=== PATIENT | male | born 1930 | race Caucasian/White ===

== ENCOUNTER 2017-07-11 10:39 | Inpatient (IN) | payer MEDICARE ==
[~2017-07-11] VITALS: Ht 172.7 cm; Wt 78.9 kg
[2017-07-11 10:40] VITALS: BP 130/72
[2017-07-11] MEDS ORDERED: LIPITOR80 MG PO (10:45)
[2017-07-11] MEDS ORDERED: SYNTHROID75 MCG PO (10:46)
[2017-07-11] MEDS ORDERED: GLUCOTROL5 MG PO (10:46)
[2017-07-11] MEDS ORDERED: COZAAR 50 MG TA50 M2 PO (10:46)
[2017-07-11] MEDS ORDERED: METFORMIN HCL500 MG PO (10:47)
[2017-07-11] MEDS ORDERED: COUMADIN 5 MG TA5 M1 PO (10:47)
[2017-07-11] MEDS ORDERED: TOPROL XL100 MG PO (10:47)
[2017-07-11] MEDS ORDERED: RESTORIL30 MG PO (10:47)
[2017-07-11 11:18] LABS: ABSOLUTE BASOPHILS 0.1 thou/uL (0.0-0.2); ABSOLUTE EOSINOPHILS 0.2 thou/uL (0.0-0.7); ABSOLUTE LYMPHOCYTES 1.7 thou/uL (0.8-5.3); ABSOLUTE MONOCYTES 1.2 thou/uL (0.0-1.2); ABSOLUTE NEUTROPHILS 9.3 thou/uL (1.6-8.1); BASOPHILS 0.5 %; EOSINOPHILS 1.6 %; HEMATOCRIT 41.3 % (42.0-52.0); HEMOGLOBIN 13.9 gm/dL (14.0-18.0); LYMPHOCYTES 13.7 %; MCH 30.8 pg (26.0-34.0); MCHC 33.7 g/dL (28.0-37.0); MCV 91.5 fL (80.0-100.0); MONOCYTES 9.6 %; MPV 11.9 fl. (7.2-11.1); NUCLEATED RBCS 0 /100WBC; PLATELET COUNT* 149 thou/uL (150-400); POLYS 74.6 %; RBC 4.52 mil/uL (4.50-6.00); RDW-CV 12.9 % (10.5-14.5); WBC 12.5 thou/uL (4.0-11.0)
[2017-07-11 11:24] LABS: CALCIUM 8.9 mg/dL (8.5-10.1); CREATININE 1.1 mg/dL (0.6-1.3); INR 3.8; POTASSIUM 4.7 mmol/L (3.5-5.1)
[2017-07-11 11:29] LABS: ALBUMIN 3.6 g/dL (3.4-5.0); TOTAL BILIRUBIN 0.7 mg/dL (<0.1-1.0); TOTAL PROTEIN 6.8 g/dL (6.4-8.2)
[2017-07-11 16:06] VITALS: BP 103/61
[2017-07-11 16:40] VITALS: BP 96/56
[2017-07-11 17:12] LABS: URINE BILIRUBIN NEGATIVE (Negative); URINE BLOOD NEGATIVE (Negative); URINE CLARITY CLOUDY; URINE COLOR YELLOW; URINE GLUCOSE-RANDOM 1+ (Negative); URINE KETONES TRACE (Negative); URINE LEUKOCYTES-REFLEX NEGATIVE (Negative); URINE NITRITE-REFLEX NEGATIVE (Negative); URINE PROTEIN NEGATIVE (Negative); URINE SPECIFIC GRAVITY >= 1.030 (1.005-1.030); URINE UROBILINOGEN 0.2 E.U./dl (0.2-1.0)
[2017-07-11 17:29] LABS: BACTERIA-REFLEX >30 Many /HPF (None Seen); CASTS None Seen /LPF (None Seen); MUCUS None Seen strn/LPF (None Seen); SQUAMOUS 0-3 Few /LPF (0-3); URINE RBC None Seen /HPF (0-2); URINE WBC-REFLEX None Seen /HPF (0-5)
[2017-07-11 17:30] LABS: AMORPHOUS URATES Many /LPF (None Seen)
[2017-07-11 17:34] LABS: BE -1.3 mmol/L (-2 to +3); HCO3 22.3 mmol/L (22.0-26.0); PCO2 34.4 mmHg (35.0-45.0); PO2 73.5 mmHg (75.0-100.0)
--- NOTE | 2017-07-11 17:51 | NUR ---
PT ADMITTED TO UNIT AROUND 1700 PT IS ALERT AND ORIENTED X 4 PT DENIES PAIN OR SOA ON RA, PT IS UP WITH SBA PT IS A FALL RISK BED ALARM IS ON, PT BLOOD PRESSURE LOW PHYSICIAN AWARE, PT IS SR ON MONITOR, PT IS PLESANT AND COOPERATIVE, PT HAS ACCUCHECKS, PT DAUGHTER AT BEDSIDE, WILL CONTINUE TO MONITOR
[2017-07-11 21:00] VITALS: BP 106/71
[2017-07-12] VITALS: BP 112/65
--- NOTE | 2017-07-12 03:19 | NUR ---
PT A/OX4, RA, AFIB ON THE MONITOR, PT STATED HE'S HAD AFIB FOR 18-20 YEARS, VSS, MEDS/ASSESSMENT PER KAYLA, UP SBA, HOURLY ROUNDING/FALL PRECAUTIONS IN PLACE, NO C/O PAIN/SOA, WILL CONT TO MONITOR.
[2017-07-12 04:00] VITALS: BP 107/63
[2017-07-12 08:04] VITALS: BP 98/55
--- NOTE | 2017-07-12 09:46 | NUR ---
ASSUMED CARE OF PT THIS AM AROUND 0715- MINER ASSISTANT IN PLACE ORDERED, TRACING A-FIB WITH BBB- UPON ASSESSMENT PT NOTED TO BE RESING IN BED- PT A&O X4- CONTINENT OF BOWEL AND BLADDER- SBA WITH TRANSFERS FOR SAFETY- LCTA, RESP EVEN AND UN-LABORED- BP NOTED TO BE 98/55 THIS AM, SCHEDULED METOPROLOL HELD THIS AM- ABDOMEN SOFT/ROUND/NON-TENDER, BS X4 QUADS- LAST BM REPORTED 07/11/17-TRACE EDEMA NOTED TO BLE- GOOD PO INTAKE NOTED THIS AM WITH BREAKFAST- BS MONITORED THIS AM, CONTROLLED PER PO MEDICATIONS- BS THIS AM NOTED TO BE 320, NOTIFIED- A1C ORDERED- IV NOTED TO LEFT AC INTACT, IV ABT GIVEN PRESCIBED THIS AM, NO ADVERSE REACTIONS TO NOTE-PT DENIES ANY C/O PAIN/DISCOMFORT AT THIS TIME- CALL LIGHT AND PERSONAL BELONGINGS WITH IN REACH- HOURLY ROUNDS IN PLACE R/T SAFETY/NEEDS- ALL NEEDS MET AT THIS TIME-WCTM
[2017-07-12 10:50] VITALS: BP 98/55
[2017-07-12 11:34] VITALS: BP 100/56; BP 90/57; BP 98/63
[2017-07-12 11:36] VITALS: BP 111/63
--- NOTE | 2017-07-12 12:07 | NUR ---
MET WITH PT, CELYR/INEZ AND SHRAVAN/KALIN. PT LIVES AT HOME WITH HIS /LUKE. HE IS INDEPENDENT AND ACTIVE. HAS A CANE BUT DOESN'T USE IT. PT DRIVES. HE STATES HE FEEL OFF CURB YESTERDAY AND FEELS MUCH IMPROVED TODAY, HOPES TO GO HOME. PT HASN'T HAD HH OR BEEN TO SNF. NO DPOA, GAVE ED AND INFO. NO DC NEEDS ID'D WILL FOLLOW
[2017-07-12] MEDS ORDERED: GLUCOTROL5 MG PO (14:03)
[2017-07-12] MEDS ORDERED: CEFPODOXIME PR100 MG PO (14:03)
--- NOTE | 2017-07-12 14:34 | NUR ---
ORDERS RECIVED PER FOR OKAY FOR D/C TO HOME THIS SHIFT- IV TO LEFT AC D/C'D ALONG WITH SURGICAL TECH PRIOR TO D/C- D/C TEACHING/EDUCATION GIVEN TO PT AND AT TIME OF D/C- ALL QUESTIONS AND CONCERNS ADDRESSED AT THAT TIME- WRITEN SCRIPTS FOR ABT AND INCREASED DOSE OF GLIPIZIDE PROVIDED, ALONG WITH EDUCATION GIVEN TO PT AT TIME OF D/C- PT INSTRUCTED TO RESTART COUMADIN 07/13/17, WITH BLOOD DRAWS SCHEDULED, BERBAL UNDERSTANDING RECIVED PER PT AND - BELONGINGS PACKED AND ACCOUNTED FOR PER PT AND - FLUTTER VALVE PROVIDED TO PT PER RT PRIOR TO D/C PER REQUEST- PT ESCORTED TO VEHICLE, AT SIDE PER TECH VIA W/C AT 1447 -NO PROBLEMS TO NOTE AT TIME OF D/C
[2017-07-12 18:07] LABS: GLYCOHEMOGLOBIN (HGB A1C) 7.2 % (4.8-5.6)
== END 2017-07-12 14:47 | disposition home or self-care (01) | DRG 871 ==
LOC: M.ERS 10:39 → M.TBA-ER 12:17 → M.2W 12:17
PROVIDERS: Nurse Practitioner Family; ADMIT Internal Medicine
DX: A41.9 Sepsis, unspecified organism (principal); J15.9 Unspecified bacterial pneumonia; E11.9 Type 2 diabetes mellitus without complications; I48.91 Unspecified atrial fibrillation; I10 Essential (primary) hypertension; W18.39XA Other fall on same level, initial encounter; Z95.1 Presence of aortocoronary bypass graft; Z79.899 Other long term (current) drug therapy; Y93.89 Activity, other specified; Y92.89 Other specified places as the place of occurrence of the external cause; Y99.8 Other external cause status

== ENCOUNTER 2017-10-22 07:07 | Inpatient (IN) | payer MEDICARE ==
[~2017-10-22] VITALS: Ht 172.7 cm; Wt 75.7 kg
[2017-10-22] VITALS (12 sets, daily range): BP systolic 89–130; BP diastolic 55–96
[~2017-10-22 07:07] MED LIST: CEFPODOXIME PR100 MG PO; COUMADIN 5 MG TA5 M1 PO; COZAAR 50 MG TA50 M2 PO; GLUCOTROL5 MG PO; LIPITOR80 MG PO; METFORMIN HCL500 MG PO; RESTORIL30 MG PO; SYNTHROID75 MCG PO; TOPROL XL100 MG PO
[2017-10-22 07:28] LABS: ABSOLUTE EOSINOPHILS 0.1 thou/uL (0.0-0.7); ABSOLUTE LYMPHOCYTES 1.6 thou/uL (0.8-5.3); ABSOLUTE MONOCYTES 0.6 thou/uL (0.0-1.2); ABSOLUTE NEUTROPHILS 5.7 thou/uL (1.6-8.1); BASOPHILS 0.6 %; EOSINOPHILS 0.7 %; HEMATOCRIT 38.9 % (42.0-52.0); HEMOGLOBIN 12.8 gm/dL (14.0-18.0); LYMPHOCYTES 19.9 %; MCH 29.3 pg (26.0-34.0); MCHC 32.8 g/dL (28.0-37.0); MCV 89.2 fL (80.0-100.0); MONOCYTES 8.1 %; MPV 11.4 fl. (7.2-11.1); NUCLEATED RBCS 0 /100WBC; PLATELET COUNT* 134 thou/uL (150-400); POLYS 70.7 %; RBC 4.36 mil/uL (4.50-6.00); RDW-CV 14.2 % (10.5-14.5)
[2017-10-22 07:38] LABS: ANION GAP 7 mmol/L (7-16); BUN 21 mg/dL (7-18); CHLORIDE 105 mmol/L (98-107); CO2 26 mmol/L (21-32); CREATININE 0.8 mg/dL (0.6-1.3); GLUCOSE 178 mg/dL (70-99); POTASSIUM 4.5 mmol/L (3.5-5.1); SODIUM 138 mmol/L (136-145)
[2017-10-22 07:39] LABS: APTT 37.7 Seconds (25.0-31.3); INR 2.6; PROTIME 25.1 Seconds (9.20-11.50)
[2017-10-22 07:49] LABS: ALBUMIN 2.9 g/dL (3.4-5.0); ALKALINE PHOSPHATASE 91 U/L (46-116); LIPASE 112 U/L (73-393); MAGNESIUM 1.9 mg/dL (1.8-2.4); NT-PRO BRAIN NAT PEPTIDE 2678 pg/mL (<300); SGOT 25 U/L (15-37); SGPT 30 U/L (30-65); TOTAL BILIRUBIN 0.9 mg/dL (<0.1-1.0); TOTAL PROTEIN 6.2 g/dL (6.4-8.2); TROPONIN-I LEVEL <0.06 ng/mL (<0.06)
[2017-10-22] MEDS ORDERED: AFRIN30 ML NASAL (08:36)
--- NOTE | 2017-10-22 11:29 | EKG ---
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: : 1930 Requested By: Vamsi Valadez Order Number: [id number] MD: Sushant Parikh Measurements Intervals [place] Rate: 157 P: 126 WV: 132 QRS: -46 QRSD: 133 T: 139 QT: 281 QTc: 455 Interpretive Statements atrial fibrillation premature complex supraven Nonspecific IVCD with LAD Compared to ECG 09/12/2006 11:21:40 a fib now noted Electronically Signed On 10-22-2017 11:29:02 CDT by Sushant Parikh [email or web address] <ELECTRONICALLY SIGNED> By: Sushant Parikh MD, [facility] 10/22/17 1129 0713 2 Sushant Parikh MD, [facility] /EPI
--- NOTE | 2017-10-22 16:39 | CON ---
[address] [address] CONSULTATION Name: ANGELICA HOANG Room: [address] IN M.R.#: [id number] Admission: 10/22/17 Attend Phys: Daljit Edge Discharge: Date of : 31 Report #: [id number] THIS REPORT FOR: //name// CC: CECIL Pelayo DATE OF SERVICE: 10/22/2017 PRIMARY CARE PHYSICIAN: Dr. Cecil Burton, [place], [place]. HISTORY OF PRESENT ILLNESS: The patient is an 87-year-old white male who I was asked to see in the hospital today after he was noted to be in rapid atrial fibrillation. The history is obtained from the patient's old records as well as 2 daughters who are present. The patient had triple vessel bypass surgery at [facility] many years ago. He has a history of permanent atrial fibrillation. Recently, he has been followed by Dr. Mcgraw. His last nuclear stress test in 2013 here at [facility] showed that he was in atrial fibrillation. Myocardial perfusion images showed attenuation of the apex. There was an anterior and inferior defect. No reversible defects were noted. Ejection fraction was only 32%. His last echocardiogram in 2013 showed an ejection fraction of only 30% with moderate mitral regurgitation. He had a carotid Doppler study in 2015 that showed no significant stenosis. The patient was actually admitted here to [facility] last June after he fell and had pneumonia. He does walk on a treadmill at home. He does have problems with balance and uses a cane. He does have problems with memory. The patient recently has been doing well, although he has not been sleeping well. He has been weak. This morning, his could not get him out of bed. An ambulance was called. He was brought here to [facility] by ambulance. He is noted to be in atrial fibrillation, increased ventricular response rate, and the patient was started on IV diltiazem. He denies any recent chest pain. He has been short of breath. He has had no edema. He has had a cough. He notes his heart beating irregular, but has had no lightheadedness or syncope. PAST MEDICAL HISTORY: Otherwise, significant for no other major surgical procedures. He has a history of diabetes, hypertension, hyperlipidemia. MEDICATIONS: Consist of Lipitor, glyburide, Synthroid, losartan, metformin, metoprolol, Restoril, warfarin. He has a home INR monitor. He also checks his blood sugars at home. ALLERGIES: He has no known drug allergies. FAMILY HISTORY: Heart disease runs in the family. SOCIAL HISTORY: He is . He and his live in [place], 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 No smoking or alcohol abuse. REVIEW OF SYSTEMS: He has had no history of stroke, asthma, peptic ulcer disease, GI bleeding, liver disease, kidney disease, cancer, psychiatric illness. PHYSICAL EXAMINATION: GENERAL: Elderly, frail-appearing male who appeared in no acute distress. VITAL SIGNS: He had a blood pressure of only 100 systolic, pulse is 140 and irregular. He is afebrile. HEENT: He is anicteric. Conjunctivae pale. Mucous members appear dry. NECK: Veins not distended. CHEST: Clear to auscultation. CARDIOVASCULAR: Irregular tachycardia. ABDOMEN: Soft. EXTREMITIES: Had no edema. Dorsalis pedis pulse cannot be palpated. SKIN: Cool and dry. LABORATORY DATA: On the monitor, he appeared to be in atrial fibrillation with rapid ventricular response rate. He had x-rays performed since admission included a chest x-ray that showed cardiomegaly, mild interstitial edema. Previous CT scan of the head done in June showed mild atrophy, chronic microvascular changes, but no hemorrhage. Carotid Doppler study in 2016 here at [facility] showed no significant stenosis. His lab work since he arrived, sodium 138, BUN 21, creatinine 0.8. Liver functions are actually normal. Troponin 0.06. BNP 2678. Thyroid function studies are pending. INR is 2.6. White blood cell count 8.0, hemoglobin 12.8. IMPRESSION AND RECOMMENDATIONS: 1. Fatigue. Thyroid function studies pending. The patient is not anemic. Reason unclear. 2. Insomnia. 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 3. Coronary artery disease. Previous bypass surgery. No recent angina. 4. Cardiomyopathy. The patient has been on a beta familia and ARB. 5. Permanent atrial fibrillation. Rate not controlled at this time on beta familia. I would add diltiazem and digoxin if necessary. The patient has been chronically anticoagulated. If he continues to fall, I will consider the patient a high risk for bleeding. The patient apparently was cardioverted at [facility] in the past. 6. Memory loss. 7. Diabetes. 8. Hyperlipidemia. The patient is on a statin drug. <ELECTRONICALLY SIGNED> By: Sushant Parikh MD, [facility] 10/22/17 1639 0932 1239David Aminah Parikh MD, [facility] /nt
[2017-10-23] VITALS (13 sets, daily range): BP systolic 106–123; BP diastolic 63–72
[2017-10-23 04:35] LABS: INR 2.9; PROTIME 28.1 Seconds (9.20-11.50)
[2017-10-23 04:44] LABS: CALCIUM 8.8 mg/dL (8.5-10.1); CREATININE 0.7 mg/dL (0.6-1.3)
--- NOTE | 2017-10-23 15:34 | 2DMMODE ---
[place] [address] 2 D/M-MODE ECHOCARDIOGRAM Name: ANGELICA HOANG Room: [facility] IN [facility]#: [id number] Admission: 10/22/17 Attend Phys: Rush Pelayo Discharge: Date of : 31 Date of Service: 10/23/17 1534 Report #: [id number] THIS REPORT FOR: //name// APPROVED REPORT Study performed: 10/23/2017 14:11:52 EXAM: Comprehensive 2D, Doppler, and color-flow Echocardiogram Patient Location: In-Patient Room #: 006 Status: routine BSA: 1.89 HR: 52 bpm BP: 118/71 mmHg Rhythm: Atrial Fibrillation Other Information Study Quality: Good Indications Atrial Fibrillation 2D Dimensions LVEF(%): 41.54 (>50%) IVSd: 10.89 (7-11mm) LVOT Diam: 19.86 (18-24mm) LVDd: 55.50 mm PWd: 8.62 (7-11mm) Ascending Ao: 39.05 (22-36mm) LVDs: 44.07 (25-40mm) Aortic Root: 32.71 mm Sierra's LVEF: 41.54 % Volumes Left Atrial Volume (Systole) LA ESV Index: 50.80 mL/m2 Aortic Valve AoV Peak Jorge.: 1.34 m/s AO Peak Gr.: 7.20 mmHg LVOT Max P.98 mmHg AO Mean Gr.: 4.03 mmHg LVOT Mean P.44 mmHg LVOT Max V: 0.50 m/s AO V2 VTI: 22.59 cm LVOT Mean V: 0.31 m/s JAMEY (VTI): 1.04 cm2 LVOT V1 VTI: 7.59 cm Mitral Valve MV Decel. Time: 115.14 [place] [address] 2 D/M-MODE ECHOCARDIOGRAM Name: ANGELICA HOANG Room: [address] IN [facility].#: [id number] Admission: 10/22/17 Attend Phys: Rush Pelayo Discharge: Date of : 31 Date of Service: 10/23/17 1534 Report #: [id number] MV PHT: 33.39 ms MVA (PHT): 6.59 cm2 TDI Medial E' Jorge.: 0.10 m/s Lateral E' Jorge.: 0.11 m/s Pulmonary Valve PV Peak Jorge.: 0.92 m/s PV Peak Gr.: 3.36 mmHg Tricuspid Valve TR Peak Gr.: 40.29 mmHg RVSP: 45.00 mmHg Left Ventricle Left ventricle is mildly dilated. There is global hypokinesis of the left ventricle. There is normal left ventricular wall thickness. Left ventricular systolic function is moderately decreased. LVEF is 35-40%. This study is not technically sufficient to allow evaluation of the LV diastolic function due to atrial fibrillation. Right Ventricle The right ventricle is normal size. The right ventricular systolic function is normal. Atria Left atrium is severely dilated. Right atrium is moderately dilated. Aortic Valve The Aortic valve is sclerotic. No aortic regurgitation is present. No aortic stenosis. Mitral Valve The mitral valve is normal in structure. Mild mitral regurgitation. No evidence of mitral valve stenosis. Tricuspid Valve The tricuspid valve is normal in structure. Moderate tricuspid regurgitation. The RVSP is 45-50 mmHg. Pulmonic Valve The pulmonary valve is normal in structure. There is no pulmonic valvular regurgitation. Great Vessels The aortic root is normal in size. IVC [place] [address] 2 D/M-MODE ECHOCARDIOGRAM Name: ANGELICA HOANG Room: [address]#: [id number] Admission: 10/22/17 Attend Phys: Rush Pelayo Discharge: Date of : 31 Date of Service: 10/23/17 1534 Report #: [id number] collapses with >50% inspiration Pericardium There is no pericardial effusion. <Conclusion> Left ventricle is mildly dilated. There is normal left ventricular wall thickness. Left ventricular systolic function is moderately decreased. LVEF is 35-40%. This study is not technically sufficient to allow evaluation of the LV diastolic function due to atrial fibrillation. There is global hypokinesis of the left ventricle. Left atrium is severely dilated. Right atrium is moderately dilated. No aortic stenosis. Mild mitral regurgitation. Moderate tricuspid regurgitation. The RVSP is 45-50 mmHg. <ELECTRONICALLY SIGNED> By: Steven Mcgraw MD, FACC 10/23/17 1534 1534 1534 Steven Mcgraw MD, FACC /INF
--- NOTE | 2017-10-23 15:36 | EKG ---
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1930 Requested By: Sushant Parikh Order Number: [id number] Juan C MD: Steven Mcgraw Measurements Intervals [place] Rate: 48 P: [place]: QRS: -48 QRSD: 138 T: 200 QT: 451 QTc: 403 Interpretive Statements Atrial fibrillation Left bundle branch block Compared to ECG 10/22/2017 07:13:13 Left bundle-branch block now present Intraventricular conduction delay no longer present Electronically Signed On 10-23-2017 15:36:17 CDT by Steven Mcgraw [email or web address] <ELECTRONICALLY SIGNED> By: Steven Mcgraw MD, [facility] 10/23/17 1536 1236 1236 Steven Mcgraw MD, [facility] /EPI
[2017-10-24] VITALS (8 sets, daily range): BP systolic 102–171; BP diastolic 60–81
[2017-10-24 05:16] LABS: INR 2.7
[2017-10-25] VITALS: BP 102/60
[2017-10-25 04:15] VITALS: BP 114/79
[2017-10-25 04:30] LABS: INR 1.8; PROTIME 17.4 Seconds (9.20-11.50)
[2017-10-25 07:30] VITALS: BP 114/70
[2017-10-25] MEDS ORDERED: CARDIZEM CD120 MG PO (11:38)
== END 2017-10-25 12:20 | disposition home or self-care (01) | DRG 308 ==
LOC: M.ERS 07:07 → M.ICU 08:25 → M.TBA-ER 08:25 → M.ICU 11:53 → M.3W 10-24 13:57
PROVIDERS: Emergency Medicine Emergency Medical Services; Internal Medicine Cardiovascular Disease; ADMIT Internal Medicine
DX: I48.91 Unspecified atrial fibrillation (principal); I50.43 Acute on chronic combined systolic (congestive) and diastolic (congestive) heart failure; E44.0 Moderate protein-calorie malnutrition; I11.0 Hypertensive heart disease with heart failure; I42.9 Cardiomyopathy, unspecified; R53.83 Other fatigue; E11.9 Type 2 diabetes mellitus without complications; G47.00 Insomnia, unspecified; R41.3 Other amnesia; E78.5 Hyperlipidemia, unspecified; E03.9 Hypothyroidism, unspecified; I25.10 Atherosclerotic heart disease of native coronary artery without angina pectoris; F03.90 Unspecified dementia, unspecified severity, without behavioral disturbance, psychotic disturbance, mood disturbance, and anxiety; Z68.25 Body mass index [BMI] 25.0-25.9, adult; Z79.01 Long term (current) use of anticoagulants; Z82.49 Family history of ischemic heart disease and other diseases of the circulatory system

== ENCOUNTER 2018-02-04 01:02 | Inpatient (IN) | payer MEDICARE ==
[2018-02-04] VITALS (22 sets, daily range): BP systolic 64–124; BP diastolic 35–93
[~2018-02-04] VITALS: Ht 172.7 cm; Wt 78.9 kg
--- NOTE | ~2018-02-04 | EKG ---
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: : 1930 Requested By: Sushant Parikh Order Number: [id number] Reading MD: Measurements Intervals [place] Rate: 127 P: [place]: QRS: -43 QRSD: 134 T: 134 QT: 302 QTc: 440 Interpretive Statements Atrial fibrillation Nonspecific IVCD with LAD Abnormal T, consider ischemia, lateral leads ST elevation, consider inferior injury Compared to ECG 02/04/2018 14:14:41 T-wave abnormality now present ST (T wave) deviation now present Myocardial infarct finding now present Possible ischemia still present [email or web address] By: 820 0 Epiphany Epiphany, [place] /EPI
[~2018-02-04 01:02] MED LIST changes: +AFRIN30 ML NASAL; +CARDIZEM CD120 MG PO
[2018-02-04 01:24] LABS: ABSOLUTE BASOPHILS 0.1 thou/uL (0.0-0.2); ABSOLUTE EOSINOPHILS 0.1 thou/uL (0.0-0.7); ABSOLUTE LYMPHOCYTES 2.7 thou/uL (0.8-5.3); ABSOLUTE MONOCYTES 0.8 thou/uL (0.0-1.2); ABSOLUTE NEUTROPHILS 7.3 thou/uL (1.6-8.1); BASOPHILS 0.7 %; EOSINOPHILS 0.6 %; HEMATOCRIT 36.9 % (42.0-52.0); HEMOGLOBIN 12.1 gm/dL (14.0-18.0); LYMPHOCYTES 24.5 %; MCH 28.8 pg (26.0-34.0); MCHC 32.7 g/dL (28.0-37.0); MONOCYTES 7.5 %; NUCLEATED RBCS 0 /100WBC; PLATELET COUNT* 199 thou/uL (150-400); POLYS 66.7 %; RDW-CV 15.9 % (10.5-14.5)
[2018-02-04 01:35] LABS: ANION GAP 7 mmol/L (7-16); BUN 25 mg/dL (7-18); CALCIUM 8.3 mg/dL (8.5-10.1); CHLORIDE 104 mmol/L (98-107); CO2 26 mmol/L (21-32); CREATININE 0.9 mg/dL (0.6-1.3); GLUCOSE 234 mg/dL (70-99); POTASSIUM 4.5 mmol/L (3.5-5.1); SODIUM 137 mmol/L (136-145)
[2018-02-04 01:44] LABS: INR 1.6
[2018-02-04 01:45] LABS: ALKALINE PHOSPHATASE 114 U/L (46-116); NT-PRO BRAIN NAT PEPTIDE 4273 pg/mL (<300); SGOT 49 U/L (15-37); SGPT 52 U/L (30-65); TOTAL BILIRUBIN 0.3 mg/dL (<0.1-1.0); TOTAL PROTEIN 6.6 g/dL (6.4-8.2); TROPONIN-I LEVEL <0.06 ng/mL (<0.06)
[2018-02-04] MEDS ORDERED: METFORMIN HCL500 MG PO (02:33)
--- NOTE | 2018-02-04 10:57 | EKG ---
[place] [address] ELECTROCARDIOGRAM REPORT Name: ANGELICA HOANG Room: [address] ADM IN ..#: [id number] Admission: 02/04/18 Attend Phys: Charlie Gonsalez MD Discharge: Date of : 31 Report #: [id number] THIS REPORT FOR: //name// 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: AP : 1930 Requested By: Ilene Beltran Order Number: [id number] : Sushant Parikh Measurements Intervals [place] Rate: 138 P: [place]: QRS: -47 QRSD: 138 T: 143 QT: 323 QTc: 490 Interpretive Statements Atrial fibrillation Left bundle branch block Compared to ECG 10/23/2017 12:36:34 rate increased Electronically Signed On 02-04-2018 10:57:36 CDT by Sushant Parikh [email or web address] <ELECTRONICALLY SIGNED> By: Sushant Parikh MD, [facility] 02/04/18 1057 0116 0116 Sushant Parikh MD, [facility] /EPI
--- NOTE | 2018-02-04 14:38 | EKG ---
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1930 Requested By: Sushant Parikh Order Number: [id number] Reading MD: Sushant Parikh Measurements Intervals [place] Rate: 36 P: [place]: QRS: -43 QRSD: 137 T: 201 QT: 499 QTc: 386 Interpretive Statements Atrial fibrillation Nonspecific IVCD with LAD LVH w/ repol abnormalities, possible ischemia Compared to ECG 02/04/2018 01:16:42 Possible ischemia now present rate slowed Electronically Signed On 02-04-2018 14:38:43 CDT by Sushant Parikh [email or web address] <ELECTRONICALLY SIGNED> By: Sushant Parikh MD, [facility] 02/04/18 1438 1215 1215 Sushant Parikh MD, [facility] /EPI
--- NOTE | 2018-02-04 14:40 | EKG ---
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
[2018-02-05] VITALS (14 sets, daily range): BP systolic 88–150; BP diastolic 35–124
[2018-02-05 04:10] LABS: HEMATOCRIT 30.5 % (42.0-52.0); HEMOGLOBIN 10.2 gm/dL (14.0-18.0); MCH 29.1 pg (26.0-34.0); MCHC 33.3 g/dL (28.0-37.0); MCV 87.2 fL (80.0-100.0); MPV 10.9 fl. (7.2-11.1); RBC 3.5 mil/uL (4.50-6.00); RDW-CV 15.9 % (10.5-14.5); WBC 13.4 thou/uL (4.0-11.0)
[2018-02-05 04:19] LABS: INR 1.8; PROTIME 18.1 Seconds (9.20-11.50)
[2018-02-05 04:40] LABS: CALCIUM 8.5 mg/dL (8.5-10.1); CREATININE 0.8 mg/dL (0.6-1.3); MAGNESIUM 1.8 mg/dL (1.8-2.4); POTASSIUM 4.4 mmol/L (3.5-5.1); TROPONIN-I LEVEL 0.49 ng/mL (<0.06)
[2018-02-05 20:21] LABS: URINE BILIRUBIN NEGATIVE (Negative); URINE BLOOD TRACE (Negative); URINE CLARITY CLEAR; URINE COLOR YELLOW; URINE GLUCOSE-RANDOM NEGATIVE (Negative); URINE KETONES NEGATIVE (Negative); URINE LEUKOCYTES 1+ (Negative); URINE NITRITE NEGATIVE (Negative); URINE PROTEIN NEGATIVE (Negative); URINE UROBILINOGEN 0.2 E.U./dl (0.2-1.0)
[2018-02-05 21:00] LABS: CASTS None Seen /LPF (None Seen); SQUAMOUS 0-3 Few /LPF (0-3)
[2018-02-05 21:01] LABS: BACTERIA 1-9 Few /HPF (None Seen); CRYSTALS None Seen /LPF (None Seen); URINE RBC 0-2 Rare /HPF (0-2); URINE WBC 6-15 Few /HPF (0-5)
[2018-02-06] VITALS (20 sets, daily range): BP systolic 91–154; BP diastolic 48–116
[2018-02-06 03:48] LABS: HEMATOCRIT 32.5 % (42.0-52.0); HEMOGLOBIN 10.7 gm/dL (14.0-18.0); MCH 28.9 pg (26.0-34.0); MCHC 32.8 g/dL (28.0-37.0); MCV 87.9 fL (80.0-100.0); MPV 11.3 fl. (7.2-11.1); RBC 3.7 mil/uL (4.50-6.00)
[2018-02-06 03:52] LABS: INR 1.9; PROTIME 19.7 Seconds (9.20-11.50)
[2018-02-06 03:59] LABS: CALCIUM 9.3 mg/dL (8.5-10.1); CREATININE 0.8 mg/dL (0.6-1.3); MAGNESIUM 2.2 mg/dL (1.8-2.4); POTASSIUM 4.4 mmol/L (3.5-5.1)
--- NOTE | 2018-02-06 10:11 | CON ---
[facility] [address] [place] [address] CONSULTATION Name: ANGELICA HOANG Room: [address] IN M.R.#: [id number] Admission: 02/04/18 Attend Phys: Charlie Gonsalez MD Discharge: Date of : 31 Report #: [id number] THIS REPORT FOR: //name// CC: Charlie Burton MD DATE OF SERVICE: 02/04/2018 HISTORY OF PRESENT ILLNESS: The patient is an 87-year-old white male who I was asked to see in the hospital after he was noted to be in atrial fibrillation. The patient apparently had triple vessel bypass surgery at [facility] many years ago. He has a history of AFib and has been cardioverted twice in the past. Recently, he has been followed by my partner, Dr. Mcgraw. He has been chronically anticoagulated and does have his INR checked frequently. His last nuclear stress test in 2013 here at [place] showed no reversible defects with ejection fraction only 32%. His last echocardiogram at that time showed an ejection fraction of only 30%. He does have problems with balance and uses a cane. However, he does exercise on a treadmill that he has at home. The patient was actually admitted to [facility] in October with weakness. The patient's rate of atrial fibrillation was noted to be increased. The patient was kept in the hospital a few days and discharged. In addition to metoprolol, the patient was started on diltiazem for rate control. He does have a home INR monitor. The patient states he was doing well until last night, he woke up and he just did not feel very well. He denied any chest pain, shortness of breath, palpitations, lightheadedness. He had no recent bleeding. His called paramedics. He was noted to be hypotensive. He was brought to the Emergency Room. The rate of his atrial fibrillation was noted to be increased. He was started on IV diltiazem and Cardiology consultation was requested. He denied any recent chest pain, shortness of breath or palpitations. PAST MEDICAL HISTORY: Otherwise, significant for diabetes, hypertension, hyperlipidemia. MEDICATIONS: Include Lipitor, Synthroid, losartan, metoprolol, warfarin, diltiazem, metformin. ALLERGIES: He had no known drug allergies. FAMILY HISTORY: Positive for heart disease. SOCIAL HISTORY: He is . He and his live in [place]. 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 No smoking or alcohol abuse. REVIEW OF SYSTEMS: He has had no history of stroke, asthma, [place] [address] CONSULTATION Name: ANGELICA HOANG Room: [address] IN [facility]#: [id number] Admission: 02/04/18 Attend Phys: Charlie Gonsalez MD Discharge: Date of : 31 Report #: [id number] disease, liver disease, kidney disease, cancer or psychiatric illness. PHYSICAL EXAMINATION: GENERAL: Revealed an elderly male, lying in bed, he appeared in no distress. VITAL SIGNS: He had a blood pressure of 100/60, his pulse was 110, respirations nonlabored, he is afebrile. HEENT: He is anicteric. Conjunctivae pink. Mucous members moist. NECK: Veins nondistended. CHEST: Clear to auscultation. CARDIAC: Irregular rhythm, grade 2 systolic ejection murmur. ABDOMEN: Soft. EXTREMITIES: Had no edema. Dorsalis pedis pulse could not be palpated. SKIN: Cool and dry. NEUROLOGIC: Nonfocal. LABORATORY DATA: His ECG showed atrial fibrillation, left axis, left ventricular hypertrophy, repolarization changes. His workup, he actually had an echocardiogram in October that showed ejection fraction 35%, biatrial enlargement, mild mitral regurgitation, moderate tricuspid insufficiency. On his workup last night, he had portable chest x-ray that showed cardiomegaly, evidence of previous sternotomy, mild interstitial infiltrate in the right lung. He actually had a CT scan of the chest with contrast last night because of an elevated D-dimer that showed no pulmonary embolus, coronary artery calcification, vascular congestion. His previous carotid Doppler study in 2015 showed no significant stenosis. His lab work, BUN 25, creatinine 0.9, glucose 234. Troponin 0.17. His BNP 4273. INR is 1.6. White blood cell count 11.0, hemoglobin 12.2. IMPRESSION AND RECOMMENDATIONS: 1. Atrial fibrillation. Rate noted to be increased. The patient is on a beta-familia and calcium familia. I would recommend increasing the dose of calcium familia. I would continue anticoagulation, maintain an INR of 2-3. 2. Cardiomyopathy. The patient is on a beta-familia, ARB. I would recommend adding spironolactone. 3. Diabetes. 4. Hypertension. The patient on an ARB, beta-familia, calcium familia. 5. Hyperlipidemia. The patient is on a statin drug. <ELECTRONICALLY SIGNED> By: Sushant Parikh MD, [facility] 02/06/18 1011 0811 0835David Aminah Parikh MD, [facility] /nt
[2018-02-06 13:59] LABS: INR 1.5; PROTIME 14.9 Seconds (9.20-11.50)
--- NOTE | 2018-02-06 18:39 | CARD ---
[facility] [address] [place] [address] CARDIAC CATH REPORT Name: ANGELICA HOANG Room: [address] IN [facility]#: [id number] Admission: 02/04/18 Attend Phys: Charlie Gonsalez MD Discharge: Date of : 31 Report #: [id number] THIS REPORT FOR: //name// APPROVED REPORT Study performed: 02/06/2018 09:11:29 Patient Status: In-Patient Room #: 006 Event Personnel: Sushant Parikh Sawing And Assembly Supervisor, Riri Solis RN Hand Alterations Seamstress, Titi Guadarrama (R) Monitor, Lizbeth Weiss RTR Scrub, Katerine To Monitor Exam: Insertion of Single Chamber Permanent Pacemaker Indications: Sick Sinus Syndrome/Tachy Trey Syndrome The patient is a 87 year-old male with a history of Atrial Fibrillation. Conscious Sedation No sedation given. Implanted Devices: single chamber biotronic pacemaker and lead Procedure The patient underwent informed consent. We discussed the details of the procedure including the risks, which include, but not limited to bleeding, infection, vascular damage, cardiac perforation, and pneumothorax. He understood these risks and was willing to proceed. As such, he was brought to the EP/Cardiac Catheterization laboratory in a fasting and sedated state and prepped and draped in a sterile fashion, received IV antibiotics prior to initiation of the procedure and a venogram was performed showing patency of the right axillary vein. The patient underwent conscious sedation, with no related complications. The patient was brought to the EP/Cardiac Catheterization laboratory and the right chest and shoulder were prepped and draped in a sterile manner. During this case, Fluoroscopy and visipaque 10cc were used for imaging. The right subclavian region was infiltrated with 2% Lidocaine subcutaneous anesthesia. A transverse incision was made in the right upper chest cavity. The subcutaneous pocket was formed via blunt dissection. Percutaneous venous access was achieved and an introducer [place] [address] CARDIAC CATH REPORT Name: ANGELICA HOANG Room: [address] IN [facility].#: [id number] Admission: 02/04/18 Attend Phys: Charlie Gonsalez MD Discharge: Date of : 31 Report #: [id number] the right Subclavian vein. Through the introducer sheaths the ventricular lead wire was positioned in the right atrial appendage and right ventricular apex respectively. Utilizing fluoroscopic guidance, the ventricular lead wire was advanced over the wires and positioned in the right atria and right ventricle respectively. Capturing and sensing thresholds were verified. Electrode Parameters R Wave: 8.1 mv Ventricular Threshold: 0.5 v @ 0.4 ms Ventricular Resistance: 663 ohm Single Chamber The ventricular lead was attached to the appropriate receptacle on the pulse generator and set screws firmly tightened to insure adequate contact and stability. The lead and pulse generator were placed into the subcutaneous pocket. Sharp and sponge counts were confirmed to be correct. At this time the pocket was closed subcutaneously with a 0 Vicryl and the skin was closed with a 4.0 Vicryl. The operative site was dressed in sterile fashion with skin affix and the patient was transferred to the floor in stable condition. Complications The patient tolerated the procedure well and there were no complications associated with the procedure. Findings Estimated Blood Loss: 5 cc Conclusion successful placement of a single chamber pacemaker <ELECTRONICALLY SIGNED> By: Sushant Parikh MD, FACC 02/06/181838 38 38Davidenisse Parikh MD, FACC /INF
[2018-02-07] VITALS: BP 114/66
[2018-02-07 04:00] VITALS: BP 114/55
[2018-02-07 05:15] LABS: INR 1.5; PROTIME 14.9 Seconds (9.20-11.50)
[2018-02-07 05:22] LABS: HEMATOCRIT 33.8 % (42.0-52.0); HEMOGLOBIN 11.4 gm/dL (14.0-18.0); MCH 29.4 pg (26.0-34.0); MCHC 33.7 g/dL (28.0-37.0); MPV 10.6 fl. (7.2-11.1); RBC 3.89 mil/uL (4.50-6.00); RDW-CV 16.2 % (10.5-14.5); WBC 10.7 thou/uL (4.0-11.0)
[2018-02-07 05:26] LABS: CALCIUM 9.2 mg/dL (8.5-10.1); CREATININE 0.8 mg/dL (0.6-1.3); MAGNESIUM 1.8 mg/dL (1.8-2.4)
[2018-02-07 08:00] VITALS: BP 117/63
[2018-02-07 11:26] VITALS: BP 131/68
[2018-02-07 15:44] VITALS: BP 119/74
[2018-02-07 19:50] VITALS: BP 117/66
[2018-02-08] VITALS: BP 129/74
[2018-02-08 04:00] VITALS: BP 116/76
[2018-02-08 08:12] LABS: CALCIUM 8.7 mg/dL (8.5-10.1); CREATININE 0.8 mg/dL (0.6-1.3); MAGNESIUM 1.8 mg/dL (1.8-2.4); POTASSIUM 4.2 mmol/L (3.5-5.1)
[2018-02-08 08:37] LABS: INR 1.3; PROTIME 13.1 Seconds (9.20-11.50)
[2018-02-08 08:54] VITALS: BP 105/54
[2018-02-08] MEDS ORDERED: TOPROL XL50 MG PO (09:33)
[2018-02-08] MEDS ORDERED: CARDIZEM CD240 MG PO (09:33)
[2018-02-08] MEDS ORDERED: SPIRONOLACTONE25 MG PO (09:33)
[2018-02-08] MEDS ORDERED: LANOXIN 0.25M0.25 M1 PO (09:35)
[2018-02-08 12:00] VITALS: BP 93/61
[2018-02-08 16:09] VITALS: BP 111/66
[2018-02-08] MEDS ORDERED: DILTIAZEM HCL90 MG PO (16:52)
[2018-02-08 16:56] VITALS: BP 79/43
== END 2018-02-08 17:10 | disposition home or self-care (01) | DRG 242 ==
LOC: M.ERS 01:02 → M.TBA-ER 02:05 → M.2W 02:05 → M.ICU 02:05 → M.2W 03:32 → M.ICU 13:17 → M.2W 02-06 17:22
PROVIDERS: Emergency Medicine; Internal Medicine; Internal Medicine Cardiovascular Disease; ADMIT Internal Medicine
PROC: 30233L1 Transfusion of Nonautologous Fresh Plasma into Peripheral Vein, Percutaneous Approach (ICD-10-PCS; principal; 2018-02-06)
PROC: 02HK3JZ Insertion of Pacemaker Lead into Right Ventricle, Percutaneous Approach (ICD-10-PCS; principal; 2018-02-06)
PROC: B51M1ZZ Fluoroscopy of Right Upper Extremity Veins using Low Osmolar Contrast (ICD-10-PCS; principal; 2018-02-06)
PROC: 0JH604Z Insertion of Pacemaker, Single Chamber into Chest Subcutaneous Tissue and Fascia, Open Approach (ICD-10-PCS; principal; 2018-02-06)
PROC: 30233K1 Transfusion of Nonautologous Frozen Plasma into Peripheral Vein, Percutaneous Approach (ICD-10-PCS; principal; 2018-02-06)
DX: I49.5 Sick sinus syndrome (principal); I21.4 Non-ST elevation (NSTEMI) myocardial infarction; I50.22 Chronic systolic (congestive) heart failure; J81.1 Chronic pulmonary edema; I42.9 Cardiomyopathy, unspecified; E78.5 Hyperlipidemia, unspecified; I48.2 Chronic atrial fibrillation; I25.10 Atherosclerotic heart disease of native coronary artery without angina pectoris; E03.9 Hypothyroidism, unspecified; R00.0 Tachycardia, unspecified; I95.9 Hypotension, unspecified; E11.65 Type 2 diabetes mellitus with hyperglycemia; I11.0 Hypertensive heart disease with heart failure; T50.905A Adverse effect of unspecified drugs, medicaments and biological substances, initial encounter; Z79.82 Long term (current) use of aspirin; Z79.01 Long term (current) use of anticoagulants; Z95.1 Presence of aortocoronary bypass graft; Z82.49 Family history of ischemic heart disease and other diseases of the circulatory system; Z79.899 Other long term (current) drug therapy

== ENCOUNTER 2018-02-28 03:55 | Inpatient (IN) | payer MEDICARE ==
[~2018-02-28] VITALS: Ht 172.7 cm; Wt 68.9 kg
[~2018-02-28 03:55] MED LIST changes: +CARDIZEM CD240 MG PO; +DILTIAZEM HCL90 MG PO; +LANOXIN 0.25M0.25 M1 PO; +SPIRONOLACTONE25 MG PO; +TOPROL XL50 MG PO
[2018-02-28 04:02] VITALS: BP 115/66
[2018-02-28] MEDS ORDERED: TOPROL XL200 MG PO (04:16)
[2018-02-28 04:42] LABS: ABSOLUTE EOSINOPHILS 0.1 thou/uL (0.0-0.7); ABSOLUTE LYMPHOCYTES 2.2 thou/uL (0.8-5.3); ABSOLUTE MONOCYTES 1.2 thou/uL (0.0-1.2); ABSOLUTE NEUTROPHILS 4.6 thou/uL (1.6-8.1); BASOPHILS 0.5 %; EOSINOPHILS 1.5 %; HEMATOCRIT 34.3 % (42.0-52.0); HEMOGLOBIN 11.4 gm/dL (14.0-18.0); LYMPHOCYTES 27.2 %; MCH 28.9 pg (26.0-34.0); MCHC 33.4 g/dL (28.0-37.0); MCV 86.7 fL (80.0-100.0); MONOCYTES 14.5 %; MPV 10.4 fl. (7.2-11.1); NUCLEATED RBCS 0 /100WBC; PLATELET COUNT* 221 thou/uL (150-400); POLYS 56.3 %; RBC 3.95 mil/uL (4.50-6.00); RDW-CV 15.8 % (10.5-14.5); WBC 8.2 thou/uL (4.0-11.0)
[2018-02-28 04:52] LABS: ANION GAP 6 mmol/L (7-16); BUN 24 mg/dL (7-18); CALCIUM 9.2 mg/dL (8.5-10.1); CHLORIDE 99 mmol/L (98-107); CO2 26 mmol/L (21-32); GLUCOSE 113 mg/dL (70-99); POTASSIUM 4.4 mmol/L (3.5-5.1); PROTIME 40.6 Seconds (9.20-11.50); SODIUM 131 mmol/L (136-145)
[2018-02-28 04:59] LABS: ALBUMIN 3.1 g/dL (3.4-5.0); ALKALINE PHOSPHATASE 106 U/L (46-116); NT-PRO BRAIN NAT PEPTIDE 882 pg/mL (<300); SGOT 16 U/L (15-37); SGPT 23 U/L (30-65); TOTAL BILIRUBIN 0.4 mg/dL (<0.1-1.0); TOTAL PROTEIN 6.8 g/dL (6.4-8.2); TROPONIN-I LEVEL <0.06 ng/mL (<0.06)
[2018-02-28 05:36] LABS: URINE BILIRUBIN NEGATIVE (Negative); URINE BLOOD NEGATIVE (Negative); URINE CLARITY CLEAR; URINE COLOR YELLOW; URINE GLUCOSE-RANDOM NEGATIVE (Negative); URINE KETONES NEGATIVE (Negative); URINE LEUKOCYTES-REFLEX NEGATIVE (Negative); URINE NITRITE-REFLEX NEGATIVE (Negative); URINE PROTEIN NEGATIVE (Negative); URINE SPECIFIC GRAVITY 1.015 (1.005-1.030); URINE UROBILINOGEN 0.2 E.U./dl (0.2-1.0)
[2018-02-28 09:09] VITALS: BP 106/59
[2018-02-28 09:14] VITALS: BP 113/63
--- NOTE | 2018-02-28 11:06 | NUR ---
PT ADMITTED AROUND 0900 PT IS ALERT AND ORIENTED X 4 PT IS UP WITH SBA PT IS A FALL RISK BED ALARM IS ON PT AND FAMILY EDUCATED TO NOT TURN OFF ALARM AND TO CALL FOR ASSISTANCE, PT HAS PACEMAKER PT IS AFIB BBB ON THE MONITOR, PT HAS FLUIDS RUNNING, NEUROLOGY CONSULTED, WILL CONTINUE TO MONITOR
[2018-02-28 11:42] VITALS: BP 98/52
--- NOTE | 2018-02-28 13:57 | EKG ---
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: : 1930 Requested By: Ilene Beltran Order Number: [id number] MD: Jaime Reed Measurements Intervals [place] Rate: 73 P: 0 VA: 30 QRS: -57 QRSD: 169 T: 116 QT: 380 QTc: 419 Interpretive Statements Ventricular-paced complexes No further analysis attempted due to paced rhythm Compared to ECG 02/07/2018 08:21:28 Myocardial infarct finding no longer present Electronically Signed On 02-28-2018 13:57:05 CDT by Jaime Reed [email or web address] <ELECTRONICALLY SIGNED> By: Jaime Reed MD, FACC 02/28/18 1357 0414 0414 Jaime Reed MD, [facility] /EPI
--- NOTE | 2018-02-28 14:26 | NUR ---
Pt is A&O. Resides at home with his , Pt's dtr has been staying with them recently. Pt is independent, reports a couple of falls at home, but was still driving. No DME. No hx of HH or SNF. Pt may need skilled at dc v. HH. DPOA completed, appointing Pt's dtr. Followig for disposition.
[2018-02-28 15:42] VITALS: BP 90/56
[2018-02-28 20:15] VITALS: BP 98/54
[2018-03-01] VITALS (7 sets, daily range): BP systolic 101–140; BP diastolic 48–66
--- NOTE | 2018-03-01 02:17 | NUR ---
ASSUMED CARE OF PT AT 1900. PT IS ALERT ANDF ORIENTED. VSS. PERRLA. STEADY GAIT. UP WITH STAND BY ASSIST. PT IS V PACED ON THE TELEMETRY. PT IS RESTING COMFORTABLY IN BED. RESPIRATIONS ARE EVEN AND NONLABORED. WILL CONTINUE TO MONITOR PT.
[2018-03-01 04:21] LABS: HEMATOCRIT 32.6 % (42.0-52.0); HEMOGLOBIN 11.1 gm/dL (14.0-18.0); MCH 29.6 pg (26.0-34.0); MPV 10.6 fl. (7.2-11.1); RBC 3.74 mil/uL (4.50-6.00); RDW-CV 16.1 % (10.5-14.5); WBC 6.9 thou/uL (4.0-11.0)
[2018-03-01 04:30] LABS: PROTIME 50.7 Seconds (9.20-11.50)
[2018-03-01 05:17] LABS: ALBUMIN 2.8 g/dL (3.4-5.0); CALCIUM 8.6 mg/dL (8.5-10.1); CREATININE 0.8 mg/dL (0.6-1.3); MAGNESIUM 1.7 mg/dL (1.8-2.4); TOTAL BILIRUBIN 0.4 mg/dL (<0.1-1.0); TOTAL PROTEIN 5.5 g/dL (6.4-8.2)
--- NOTE | 2018-03-01 08:30 | NUR ---
ASSUMED PT. CARE AND RECEIVED REPORT AT 0730. PT. 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 PT. DENIES CURRENT PAIN/SOB. ASSISTED TO BATHROOM AND THEN UP TO CHAIR FOR BREAKFAST, TOLERATED WELL. ON RA @ 98%. FULL ASSESSMENT COMPLETED, REFER TO CHARTING. PT. DAUGHTER HERE AT BEDSIDE, UPDATE GIVEN. CALL LIGHT IN REACH, FALL PRECAUTIONS IN PLACE.
--- NOTE | 2018-03-01 19:25 | NUR ---
NO CHANGE IN PT. STATUS THIS SHIFT. NO COMPLAINTS OF DIZZINESS. UP WITH STBY ASSIST, TOLERATED WELL. BP REMAINED STABLE. HOURLY ROUNDING COMPLETED THROUGH OUT THE DAY FOR PT. SAFETY.
--- NOTE | 2018-03-02 04:34 | NUR ---
Assumed care of patient at 1930. Full assessment completed and documented; hourly rounding performed for patient's safety. Patient A&O x4; SBA in room. All VSS. V-pacing with underlying a-fib noted on telemetry. IVF infusing. No c/o pain throughout the night. Patient is progressing well toward goals. Bed alarm on at all times; call light within patient's reach. Will continue to monitor.
[2018-03-02 04:59] VITALS: BP 100/54
[2018-03-02 05:17] LABS: HEMATOCRIT 36.3 % (42.0-52.0); HEMOGLOBIN 12.1 gm/dL (14.0-18.0); MCH 28.8 pg (26.0-34.0); MCHC 33.3 g/dL (28.0-37.0); MCV 86.5 fL (80.0-100.0); MPV 10.2 fl. (7.2-11.1); RBC 4.2 mil/uL (4.50-6.00); RDW-CV 15.8 % (10.5-14.5); WBC 7.9 thou/uL (4.0-11.0)
[2018-03-02 05:25] LABS: PROTIME 54.9 Seconds (9.20-11.50)
[2018-03-02 05:36] LABS: CREATININE 0.9 mg/dL (0.6-1.3); MAGNESIUM 1.8 mg/dL (1.8-2.4); POTASSIUM 4.6 mmol/L (3.5-5.1)
[2018-03-02 05:38] LABS: INR 5.4
[2018-03-02 08:46] VITALS: BP 125/70
[2018-03-02 12:32] VITALS: BP 116/70
[2018-03-02 17:13] VITALS: BP 128/66
--- NOTE | 2018-03-02 18:22 | NUR ---
RECEIVED REPORT. ASSUMED CARE OF PT. PT A&O X4, VSS, O2 SAT >90% ON RA. SOIL CONSERVATIONIST IN PLACE TRACING VPACED/UNDERLYING AFIB WITH OCCASIONAL PVC'S WITH NO CHANGES THIS SHIFT. AM ASSESSMENT AND VITALS COMPLETED CHARTED. IV INTACT, FLUIDS INFUSING. PT ABLE TO WALK HALLS WITH PHYSICAL THERAPY THIS SHIFT. PT TOLERATING DIET. DENIES PAIN OR DISCOMFORT THIS SHIFT. DAUGHTER CALLED, UPDATE GIVEN. PT IN AGREEMENT WITH PLAN OF CARE. PT CURRENTLY WATCHING TV IN BED. CALL LIGHT IS WITHIN REACH. HOURLY ROUDNING PERFORMED. FALL PRECAUTIONS IN PLACE. WCTM FOR DURATION OF SHIFT.
[2018-03-02 19:20] VITALS: BP 108/83
--- NOTE | 2018-03-02 23:36 | NUR ---
ASSUMED CARE OF PT AT 1900. PT IS ALERT AND ORIENTED. VSS. PERRLA. NO COMPLAINTS OF PAIN. UP WITH A CANE AND STAND BY ASSIT. PT IS VPACED, HOWEVER HIS HEART RATE JUMPS UP TO THE 150'S WHEN HE IS AMBULATING. PT IS SLEEPING QUIETLY IN BED. RESPIRATIONS ARE EVEN AND NONLABORED. WILL CONTINUE TO MONITOR PT.
[2018-03-03 02:11] VITALS: BP 148/69
[2018-03-03 04:50] VITALS: BP 123/78
--- NOTE | 2018-03-03 07:25 | NUR ---
CHnge of shift bedside report given patient seen at bedside, in bed asleep bed alarm set assumed patient care
[2018-03-03 08:00] VITALS: BP 124/81
[2018-03-03 12:00] VITALS: BP 126/62
[2018-03-03 16:00] VITALS: BP 108/60
[2018-03-03 19:50] VITALS: BP 114/68
--- NOTE | 2018-03-03 23:50 | NUR ---
PT UP TO THE BATHROOM AT THIS TIME WITH ASSISTANCE AND NEEDED TO HAVE A BM. WHILE ON THE TOILET PT'S HR INCREASED TO 220'S, WHILE PATIENT WAS ASYMPTOMATIC AT THE TIME, THIS RN QUICKLY GOT THE PATIENT BACK TO BED FOR SAFETY. WHEN PATIENT WAS SAFELY IN BED, THIS RN WENT TO GET THE BP MACHINE TO TAKE A SET OF VITALS AND WHEN PT WAS GETTING HOOKED UP FOR VITALS, PATIENT STATED HE DIDN'T FEEL SO GOOD AND LOST CONSCIOUSNESS AND AIRWAY AT THAT TIME- VENDING ATTENDANT SHOWED VTAC RATE 250'S AND PATIENT WAS UNRESPONSIVE. CPR WAS STARTED RIGHT AWAY, CODE CALLED. SEE NOTES/CODE CHARTING. PATIENT TRANSFERED TO ICU AND FAMILY CALLED FOR UPDATES. REPORT GIVEN TO PROGRAM ARCHITECT FOR TRANSFER OF CARE.
[2018-03-04] VITALS (19 sets, daily range): BP systolic 98–127; BP diastolic 56–79
[2018-03-04 00:35] LABS: ANION GAP 11 mmol/L (7-16); BUN 10 mg/dL (7-18); CALCIUM 8.9 mg/dL (8.5-10.1); CHLORIDE 105 mmol/L (98-107); CO2 21 mmol/L (21-32); GLUCOSE 133 mg/dL (70-99); POTASSIUM 3.9 mmol/L (3.5-5.1); SODIUM 137 mmol/L (136-145)
[2018-03-04 00:38] LABS: APTT 34.1 Seconds (25.0-31.3); INR 3.3
[2018-03-04 00:47] LABS: MAGNESIUM 1.7 mg/dL (1.8-2.4); TROPONIN-I LEVEL <0.06 ng/mL (<0.06)
[2018-03-04 03:56] LABS: INR 2.9; PROTIME 29.7 Seconds (9.20-11.50)
--- NOTE | 2018-03-04 05:23 | NUR ---
PT ARRIVED ON UNIT FROM TELE AT 0030 AFTER A CODE ON TELE. PT ALERT AND ORIENTED VSS PT RUNNING V PACED WITH PVC'S PT GIVEN AMIODERONE IV BOLUS THEN RUNNING AT A RATE OF 1MG/MIN FOR SIX HOURS THEN DECREASED TO 0.5MG/MIN. PT SLEPT THE REST OF THE SHIFT. WILL CONTINUE PLAN OF CARE.
--- NOTE | 2018-03-04 10:11 | EKG ---
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 : 1930 Requested By: Vamsi Valadez Order Number: [id number] Juan C MD: Sushant Parikh Measurements Intervals [place] Rate: 163 P: GA: QRS: -43 QRSD: 150 T: 168 QT: 315 QTc: 519 Interpretive Statements Extreme tachycardia with wide complex, no further rhythm analysis attempted Compared to ECG 02/28/2018 04:14:47 Ventricular-paced complex(es) or rhythm no longer present Electronically Signed On 03-04-2018 10:10:31 CDT by Sushant Parikh [email or web address] <ELECTRONICALLY SIGNED> By: Sushant Parikh MD, FACC 03/04/18 1010 0016 0016 Sushant Parikh MD, [facility] /EPI
--- NOTE | 2018-03-04 11:00 | NUR ---
PT.ALERT AND ORIENTED. TRANSFERRED TO ICU LAST NIGHT AFTER CODE BLUE. DAUGHTER,LATOYA AT BEDSIDE. LATOYA CONCERNED THAT CARDIOLOGY NOT CONSULTED PRIOR TO CODE HE HAS A HX OF HEART TROUBLE. SHE FEELS THEY SHOULD HAVE BEEN CONSULTED ON ADMISSION. TO TALK WITH HER SHORTLY. LATOYA FEELS SHE IS PT.S DPOA. PT.S IS HER STEP MOTHER. CM WILL CHECK MED.RECORDS. PT.STATED HE CHECKS HIS BLOOD SUGAR BEFORE EACH MEAL AT HOME. CM WILL FOLLOW.
--- NOTE | 2018-03-04 18:00 | NUR ---
ASSUME CARE OF PT. PT RESTING IN BED. DENIES NEEDS AT THIS TIME
[2018-03-05] VITALS (19 sets, daily range): BP systolic 97–138; BP diastolic 50–81
[2018-03-05 04:18] LABS: HEMATOCRIT 31.9 % (42.0-52.0); HEMOGLOBIN 10.7 gm/dL (14.0-18.0); MCH 29.4 pg (26.0-34.0); MCHC 33.5 g/dL (28.0-37.0); MCV 87.9 fL (80.0-100.0); MPV 10.8 fl. (7.2-11.1); RBC 3.63 mil/uL (4.50-6.00); RDW-CV 16.5 % (10.5-14.5); WBC 10.5 thou/uL (4.0-11.0)
[2018-03-05 04:25] LABS: INR 2.8; PROTIME 28.1 Seconds (9.20-11.50)
[2018-03-05 04:28] LABS: ALBUMIN 2.7 g/dL (3.4-5.0); CALCIUM 8.5 mg/dL (8.5-10.1); MAGNESIUM 1.7 mg/dL (1.8-2.4); POTASSIUM 4.1 mmol/L (3.5-5.1); TOTAL BILIRUBIN 0.3 mg/dL (<0.1-1.0); TOTAL PROTEIN 5.9 g/dL (6.4-8.2)
--- NOTE | 2018-03-05 06:00 | NUR ---
ASSUMED PT CARE AT 1930. NURSING ASSESSMENT COMPLETED AT START OF SHIFT AND Q4H. PT VOICED NO CONCERNS. MEAL COOK IN PLACE, TRACING AV PACED. DENIES CHEST PAIN THIS SHIFT. CALL LIGHT WITHIN REACH.
--- NOTE | 2018-03-05 07:40 | NUR ---
6551 ASSUMED CARE OF PATIENT. PLEASE SEE DOCUMENTED ASSESSMENT.PT ATE BREAKFAST ALREADY THAT CHILD HAD DELIVERED. DENIES PAIN EXCEPT SORENESS WHER SHOCKED. AV PACED ON MONITOR
--- NOTE | 2018-03-05 10:01 | NUR ---
UP TO CHAIR. PT IS NOW TELE STATUS
--- NOTE | 2018-03-05 10:24 | NUR ---
TITRATED TO ROOM AIR WITH SAT OF 98%. MAG LEVEL REDRAWN
--- NOTE | 2018-03-05 10:45 | NUR ---
INTERDISCIPLINARY ROUNDS: PT.TELE STATUS. AWAITING TELEMETRY BED TO BECOME OPEN. PT.HAD NO COMPLAINTS.
--- NOTE | 2018-03-05 11:19 | EKG ---
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: : 1930 Requested By: Sushant Parikh Order Number: [id number] Reading MD: Jared Childress Measurements Intervals [place] Rate: 65 P: [place]: QRS: -56 QRSD: 147 T: 131 QT: 450 QTc: 468 Interpretive Statements Afib/flut and V-paced complexes No further rhythm analysis attempted due to paced rhythm Left bundle branch block Compared to ECG 03/04/2018 00:16:29 Left bundle-branch block now present Electronically Signed On 03-05-2018 11:18:55 CDT by Jared Childress [email or web address] <ELECTRONICALLY SIGNED> By: Jared Childress MD, FACC 03/05/18 1118 Jared Childress MD, FAC /EPI
--- NOTE | 2018-03-05 17:36 | NUR ---
PATIENT PROGRESSING TOWARDS GOALS. PATIENT IS NOW TELE STATUS IN THE ICU. TITRATED TO ROOM AIR. UP WITH THERAPIES AND WORKED WITH SPEECH. VSS CHARTED. MANY VISITORS
[2018-03-06] VITALS: BP 116/68
[2018-03-06 05:21] LABS: INR 2.6; PROTIME 26.5 Seconds (9.20-11.50)
--- NOTE | 2018-03-06 05:22 | NUR ---
ASSUMED PATIENT CARE AT 1900. PATIENT ALERT AND ORIENTED TIMES FOUR. CUSTODIAL LABORER COMPLETED DOCUMENTED. IV SALINE LOCKED AT THIS TIME. PATIENT ABLE TO AMBULATE TO THE CHAIR AND BACK TO BED WITH STB. VOIDS PER URINAL. NO SKIN ISSUES NOTED. NO COMPLAINTS OF PAIN OR DISCOMFORT NOTED THROUGH SHIFT.
[2018-03-06 07:45] VITALS: BP 118/65
--- NOTE | 2018-03-06 08:54 | NUR ---
RN RESUMED CARE OF PT THIS AM. PT ALERT AND ORIENTED X4. VSS. AFEBRILE. PT DENIES PAIN. DENIED WANTING TO GET UP TO CHAIR THIS AM. REMAINS IN BED. PT GOALS INCLUDE WALKING IN HALLWAY AND MOVING TO TELE FLOOR. PLAN TO DC TOMORROW. PT DENIES FURTHER QUESTOINS/CONCERNS AT THIS TIME.
[2018-03-06 08:55] VITALS: BP 118/65
--- NOTE | 2018-03-06 10:30 | NUR ---
INTERDISCIPLINARY ROUNDS: NURSING REPORTS PT.WILL MOST LIKELY DISCHARGE TOMORROW. P.T.STATED PT.WILL NEED A FRONT WHEEL WALKER AT DISCHARGE.
[2018-03-06 11:07] VITALS: BP 130/66
--- NOTE | 2018-03-06 15:13 | CON ---
[facility] [address] [place] [address] CONSULTATION Name: ANGELICA HOANG Room: [address] IN M.R.#: [id number] Admission: 02/28/18 Attend Phys: Charlie Gonsalez MD Discharge: Date of : 31 Report #: [id number] THIS REPORT FOR: //name// CC: Charlie Burton MD DATE OF SERVICE: 03/04/2018 HISTORY OF PRESENT ILLNESS: The patient is an 87-year-old white male who I was asked to see in the hospital today after he had an episode of wide complex tachycardia. The patient had multivessel bypass surgery at [facility] many years ago. He has a history of atrial fibrillation and has been cardioverted in the past. Recently, he has been followed by my partner, Dr. Mcgraw. He has been chronically anticoagulated and had his INR checked frequently. His last nuclear stress test in 2013 showed no reversible defects, the ejection fraction only 32%. His last echocardiogram showing ejection fraction of only 30%. He has problems with balance and uses a cane. The patient was admitted to [facility] in January with weakness. The rate of his atrial fibrillation was noted to be increased. He was started on IV diltiazem and admitted to [facility]. I saw him in consultation and recommended increasing the dose of his diltiazem. However, he then developed bradycardia and hypotension. He was actually admitted to the ICU and placed on pressors. 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 He tolerated the procedure well and was actually discharged on 02/08/2018. He returned to see me in the Cardiology Clinic. Recently, he has been weak and having no energy. He actually fell recently. He was brought back to the Emergency Room on 02/28/2018 with weakness. He has had no energy. He has fallen out of bed. He has been confused. He denied any chest pain, shortness of breath. The patient was admitted to the hospitalist. He was seen in consultation by Neurology. He did undergo an EEG consistent with metabolic encephalopathy. He was seen by the Neurology Service. CT scan showed no acute abnormality. The impression was some of his difficulty is related to sleep medications. On the monitor, the patient was predominantly ventricular paced. However, last night, he went into a wide complex monomorphic tachycardia at 200 beats per minute. This was consistent with ventricular tachycardia. He was cardioverted, placed on IV amiodarone and admitted to the ICU. I was asked to see him for further evaluation and treatment. PAST MEDICAL HISTORY: Significant for no other major surgical procedures. He does have a history of diabetes, hypertension and hyperlipidemia. MEDICATIONS: Include Lipitor, Synthroid, losartan, metoprolol, warfarin, diltiazem, [place] [address] CONSULTATION Name: ANGELICA HOANG Room: [address] IN [facility]#: [id number] Admission: 02/28/18 Attend Phys: Charlie Gonsalez MD Discharge: Date of : 31 Report #: [id number] ALLERGIES: He has no known drug allergies. FAMILY HISTORY: Positive for heart disease. SOCIAL HISTORY: He is . He and his live in [place]. 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 No smoking or alcohol abuse. His daughter actually works in housekeeping here at [employer]. REVIEW OF SYSTEMS: No history of stroke, asthma, peptic ulcer disease, liver disease, kidney disease, cancer, psychiatric illness. PHYSICAL EXAMINATION: GENERAL: Revealed an elderly, frail-appearing male, lying in bed. He appeared in no acute distress. VITAL SIGNS: He had a blood pressure of 110/60, pulse was 80, he was afebrile. HEENT: He was anicteric. Mucous membranes looked dry. NECK: Veins did not appear distended. CHEST: Clear to auscultation. CARDIOVASCULAR: Regular rate and rhythm. ABDOMEN: Soft. EXTREMITIES: Had no edema. SKIN: Warm and dry. DIAGNOSTIC DATA: His ECG shows a ventricular paced rhythm, occasional intrinsic lead. LABORATORY WORK: Sodium 134, creatinine 0.9, magnesium 2.2. His troponin this morning is 2.07. Recent TSH is 2.0. His INR is 2.9, yesterday was 3.3, is actually up to 5.4 last week. White blood cell count 14.3, hemoglobin 11.4. IMPRESSION AND RECOMMENDATIONS: 1. Fatigue. Suspect secondary to advanced age. I would consider assisted living. 2. Ventricular tachycardia. Secondary to cardiomyopathy. Recommend amiodarone. I would not recommend a defibrillator. 3. Atrial fibrillation. Rate controlled. The patient is anticoagulated. 4. Cardiomyopathy. The patient on beta familia, ARB. I would recommend adding spironolactone. 5. Diabetes. 6. Hypertension. The patient on ARB, beta familia, calcium familia. 7. Hyperlipidemia. The patient is on a statin drug. <ELECTRONICALLY SIGNED> By: Sushant Parikh MD, [facility] 03/06/18 1513 0735 [id number] Parikh MD, FACC /nt
[2018-03-06 15:42] VITALS: BP 110/54
--- NOTE | 2018-03-06 16:15 | NUR ---
PT PROGRESSING TOWRADS GOALS. VSS. AFEBRILE. A&O X4. DENIES PAIN THROUGHOUT SHIFT. WORKED WITH PT AND OT. WALKED IN HALLWAY X2 AND UP IN CHAIR THROUGHOUT SHIFT. DOING EXERCISES IN CHAIR. TOLERATING PO INTAKE WITH GOOD APPETITE. PT AND FAMILY CONCERNED ABOUT "WEIRD DREAMS" PT IS HAVING, WANTING TO TRY LOWER DOSE OF MELATONIN, MD NOTIFIED AND BELIEVES IT MAY BE DUE TO AMIODERONE BUT MAY TRY LOWER DOSE OF MELATONIN. RN INFORMED PT AND FAMILY, VERBALIZE UNDERSTANDING AND WOULD STILL LIKE TO TRY 5MG OF MELATONIN TONIGHT, ORDER OBTAINED. PT AND FAMILY ALSO REQUESTING WALKER FOR WHEN PT GOES HOME. RN INFORMED CASE MANAGEMENT. PT HOPEFUL TO GO HOME TOMORROW WITH DAUGHTER AND . PT AND FAMILY DENY FURTHER QUESTIONS/CONCERNS AT THIS TIME.
[2018-03-07 05:32] LABS: INR 2.1; PROTIME 21.1 Seconds (9.20-11.50)
--- NOTE | 2018-03-07 07:22 | NUR ---
PT AAOX4 RESP REG AND UNLAOBRED SKIN W/D NO ACUTE DISTRESS NOTED. PT DENIES PAIN OR SOB. PT STATES HE IS READY TO GO HOME. VSS AND NO ACUTE CHANGES THIS SH[facility] CARDIOVASCULAR TECHNICIAN INTACT WITH [facility].
[2018-03-07 09:40] VITALS: BP 118/65
[2018-03-07] MEDS ORDERED: PACERONE 200 M200 M1 PO (09:58)
--- NOTE | 2018-03-07 11:59 | NUR ---
ABLE TO REACH THERAPY,VALERIA. ORDER FOR [facility] IN FRONT OF CHART. CHRISTEN/[facility] OKD HIM TO HAVE A WALKER. SPOKE WITH PT.AND DAUGHTER,LATOYA. HE IS AGREEABLE TO HOME HEALTH. HE WOULD LIKE TO USE [facility]. SPOKE WITH KAYA/[facility] AND WILL FAX DISCHARGE ORDERS TO HER. RAFAELA ARNDT INFORMED.
[2018-03-07] MEDS ORDERED: MELATONIN5 M1 PO ×2 (12:35→12:39)
--- NOTE | 2018-03-07 13:25 | NUR ---
PT DISCHARGED HOME. COPY OF DISCHARGE INSTRUCTIONS TO PT AND DAUGHTERS WITH EXPLAINATION. PT AND 2 DAUGHTERS VERBALIZED UNDERSTANDING. PRESCRIPTION FOR AMIODERONE GIVEN TO PT. IV ACCESS REMOVED. PT ESCORTED PER WHEELCHAIR TO FAMILY CAR.
[2018-03-07] MEDS ORDERED: METOPROLOL TART25 MG PO (15:53)
[2018-03-07] MEDS ORDERED: CARDIZEM CD120 MG PO (15:53)
--- NOTE | 2018-03-07 18:47 | NUR ---
DTR CAROL CALLED 1840 ASKING IF PT IS TO TAKE AMIODARONE TONIGHT. LOOKED AT DISCHARGE INSTRUCTIONS AND WENT OVER MEDICATION SECTION WITH DTR AT THIS TIME. CAROL COMMUNICATED UNDERSTANDING.
--- NOTE | 2018-03-08 19:14 | EEG ---
[address] [address] EEG STUDY REPORT Name: ANGELICA HOANG Room: [address] IN M.R.#: [id number] Admission: 02/28/18 Attend Phys: Charlie Gonsalez MD Discharge: 03/07/18 Date of : 31 Report #: [id number] THIS REPORT FOR: //name// CC: Charlie Burton DATE OF SERVICE: 02/28/2018 This patient is being evaluated for a fall. There is some question of weakness. EEG was done by placing the electrode by standard 10-20 system of electrode placement. Both referential and sequential montages were used for recording. Background activity in this patient's EEG is about 8 Hz and 30 microvolt. The patient goes to sleep that is associated with bilaterally symmetrical sleep spindle and vertex sharp waves. Throughout the record, intermixed theta range slowing is present. Photic stimulation is unremarkable. IMPRESSION: This patient's EEG is intermixed with theta range slowing on both sides. That is a nonspecific abnormality, which can occur with encephalopathy, dementia, effect of psychotropic medication, etc. Clinical correlation is recommended. <ELECTRONICALLY SIGNED> By: Castillo Mena MD 03/08/18 1914 1423 [id number] Mena MD /nt
--- NOTE | 2018-03-08 19:14 | CON ---
[address] [place] [address] CONSULTATION Name: ANGELICA HOANG Room: [address] IN M.R.#: [id number] Admission: 02/28/18 Attend Phys: Charlie Gonsalez MD Discharge: 03/07/18 Date of : 31 Report #: [id number] THIS REPORT FOR: //name// CC: Charlie Burton DATE OF SERVICE: 02/28/2018 HISTORY OF PRESENT ILLNESS: This is an 87-year-old male patient who indicated that he woke up from his sleep and tried to walk and he fell down. He indicates that he takes some sleeping pill. He has done it for a long time. He estimates that he has been taking some sleeping pill for a year. The best I can tell the sleeping pill is temazepam. Family thinks that is too much for him. He has been getting that from his primary care doctor. Initial history was that he had a pacemaker put in and he has been feeling weak since then. The patient and the family does not think so. They think he may be somewhat lethargic, but that is not the cause of his fall. It looks like the fall was because of mechanical difficulty and he really did not pass out. The history I get is different than what he has provided to other people. REVIEW OF SYSTEMS: Indicate that he does have a pacemaker. He has a history of atrial fibrillation and is on anticoagulation. He has coronary artery disease. He has a history of hypothyroidism. His last INR was 4. He is on Coumadin. I carried out the 14-point review of system and this is his relevant 14-point review of system. Later on during the examination, it would appear that this patient was weak on the right side, especially in the right hand. He is not aware of it and he does not know how long it has been going on. He denies any new eye, ENT, cardiac, respiratory, GI, , constitutional, dermatological, hematological, psychiatric, throat, allergic symptoms associated with present symptomatology. PAST MEDICAL HISTORY: Positive for pacemaker placement about a month ago. FAMILY HISTORY: Negative for any early age stroke. SOCIAL HISTORY: He denies the use of alcohol or tobacco. PHYSICAL EXAMINATION: Indicates the patient is alert, responsive, oriented. His speech, concentration, fund of knowledge and memory is at his baseline. Cranial nerve examination 2-12 looks unremarkable. Strength, sensation, reflexes and tone is symmetrical. Pulses are difficult to feel. There does not appear to be a papilledema. He is well-developed, well-nourished individual who does not have any dysmorphic features of eyes, ears and face. His hearing and vision looks adequate. He has no thyroid mass. Cardiac examination is positive for pacemaker. No respiratory difficulty or rhonchi. Blood pressure is 113/63, [address] [place] [address] CONSULTATION Name: HOANGANGELICA D Room: [address] IN ..#: [id number] Admission: 02/28/18 Attend Phys: Charlie Gonsalez MD Discharge: 03/07/18 Date of : 31 Report #: [id number] pulse is 64, temperature is 97.7. LABORATORY DATA: CT scan of the head does not show any acute abnormality. IMPRESSION: An episode, which was probably related to his sleep medication. He is set up for an ischemic disease of the brain. He is weak on the right side, because of that I will get a carotid Doppler done and I will also get an EEG done. I will suggest giving him some other medication for sleeping rather than benzo, especially with interaction with anticoagulation. He will discussed that with his primary as well as admitting. RECOMMENDATIONS: 1. EEG. 2. Carotid Doppler. 3. Try to readjust his sleeping medication. 4. Dr. Riggs will follow up this patient with you from tomorrow. <ELECTRONICALLY SIGNED> By: Castillo Mena MD 03/08/18 [id number] Mena MD /abner
== END 2018-03-07 13:15 | disposition home health service (06) | DRG 315 ==
LOC: M.ERS 03:55 → M.2W 06:35 → M.TBA-ER 06:35 → M.2W 09:07 → M.ICU 03-04 00:52
PROVIDERS: Emergency Medicine; Emergency Medicine Emergency Medical Services; Internal Medicine; ADMIT Internal Medicine
DX: I95.9 Hypotension, unspecified (principal); I50.22 Chronic systolic (congestive) heart failure; E44.1 Mild protein-calorie malnutrition; I67.82 Cerebral ischemia; I47.2 Ventricular tachycardia; I42.9 Cardiomyopathy, unspecified; I25.810 Atherosclerosis of coronary artery bypass graft(s) without angina pectoris; I11.0 Hypertensive heart disease with heart failure; I48.91 Unspecified atrial fibrillation; I49.5 Sick sinus syndrome; E78.5 Hyperlipidemia, unspecified; E11.9 Type 2 diabetes mellitus without complications; E03.9 Hypothyroidism, unspecified; Z79.01 Long term (current) use of anticoagulants; Z95.0 Presence of cardiac pacemaker; Z82.49 Family history of ischemic heart disease and other diseases of the circulatory system

== ENCOUNTER 2018-03-18 09:49 | Inpatient (IN) | payer MEDICARE ==
[~2018-03-18] VITALS: Ht 172.7 cm; Wt 73.9 kg
[~2018-03-18 09:49] MED LIST changes: +MELATONIN5 M1 PO; +METOPROLOL TART25 MG PO; +PACERONE 200 M200 M1 PO; +TOPROL XL200 MG PO
[2018-03-18 09:50] VITALS: BP 112/71
[2018-03-18 10:03] LABS: ABSOLUTE BASOPHILS 0.1 thou/uL (0.0-0.2); ABSOLUTE EOSINOPHILS 0.1 thou/uL (0.0-0.7); ABSOLUTE LYMPHOCYTES 2.2 thou/uL (0.8-5.3); ABSOLUTE MONOCYTES 0.9 thou/uL (0.0-1.2); ABSOLUTE NEUTROPHILS 9.7 thou/uL (1.6-8.1); BASOPHILS 0.9 %; EOSINOPHILS 0.4 %; HEMATOCRIT 35.5 % (42.0-52.0); HEMOGLOBIN 11.6 gm/dL (14.0-18.0); LYMPHOCYTES 17.1 %; MCH 29.5 pg (26.0-34.0); MCHC 32.8 g/dL (28.0-37.0); MONOCYTES 6.9 %; MPV 10.3 fl. (7.2-11.1); NUCLEATED RBCS 0 /100WBC; PLATELET COUNT* 214 thou/uL (150-400); POLYS 74.7 %; RBC 3.94 mil/uL (4.50-6.00); RDW-CV 18.3 % (10.5-14.5); WBC 12.9 thou/uL (4.0-11.0)
[2018-03-18 10:14] LABS: ANION GAP 7 mmol/L (7-16); BUN 18 mg/dL (7-18); CALCIUM 9.2 mg/dL (8.5-10.1); CHLORIDE 102 mmol/L (98-107); CO2 24 mmol/L (21-32); CREATININE 1.1 mg/dL (0.6-1.3); GLUCOSE 231 mg/dL (70-99); SODIUM 133 mmol/L (136-145)
[2018-03-18 10:17] LABS: APTT 39.4 Seconds (25.0-31.3); PROTIME 40.9 Seconds (9.20-11.50)
[2018-03-18 10:30] LABS: ALBUMIN 3.3 g/dL (3.4-5.0); ALKALINE PHOSPHATASE 160 U/L (46-116); CK-MB MASS 1.3 ng/mL (<0.5-3.6); LIPASE 152 U/L (73-393); MAGNESIUM 1.8 mg/dL (1.8-2.4); NT-PRO BRAIN NAT PEPTIDE 3025 pg/mL (<300); SGOT 33 U/L (15-37); SGPT 31 U/L (30-65); TOTAL BILIRUBIN 0.5 mg/dL (<0.1-1.0); TROPONIN-I LEVEL <0.06 ng/mL (<0.06)
--- NOTE | 2018-03-18 11:49 | EKG ---
[place] [address] ELECTROCARDIOGRAM REPORT Name: ANGELICA HOANG Room: [facility]#: [id number] Admission: 03/18/18 Attend Phys: Discharge: Date of : 31 Report #: [id number] THIS REPORT FOR: //name// [facility] ED Test Date: 2018-03-18 Test Time: 09:53:45 Pat Name: ANGELICA HOANG Department: Room: Gender: M Delivery Associate: : 1930 Requested By: Marvin Estes Order Number: [id number] MD: Sushant Parikh Measurements Intervals [place] Rate: 84 P: SD: QRS: -63 QRSD: 183 T: 117 QT: 442 QTc: 523 Interpretive Statements Afib/flut and V-paced complexes Compared to ECG 03/05/2018 08:28:41 rate increased Electronically Signed On 03-18-2018 11:48:56 MILLED [employer]ICE [employer]OKER by Sushant Parikh [email or web address] <ELECTRONICALLY SIGNED> By: Sushant Parikh MD, [facility] 03/18/18 1148 0953 2 Sushant Parikh MD, FACC /EPI
[2018-03-18 14:59] VITALS: BP 106/63
[2018-03-18 15:12] VITALS: BP 111/67
[2018-03-18 16:00] VITALS: BP 109/50
[2018-03-18 20:00] VITALS: BP 106/64
[2018-03-19] VITALS: BP 91/53
[2018-03-19 04:00] VITALS: BP 108/61
[2018-03-19 05:42] LABS: INR 3.8; PROTIME 38.9 Seconds (9.20-11.50)
[2018-03-19 08:00] VITALS: BP 95/53
[2018-03-19 11:39] VITALS: BP 94/56
--- NOTE | 2018-03-19 15:03 | CON ---
[facility] [address] [place] [address] CONSULTATION Name: ANGELICA HOANG Room: [address] IN M.R.#: [id number] Admission: 03/18/18 Attend Phys: Ann Tolliver MD Discharge: Date of : 31 Report #: [id number] THIS REPORT FOR: //name// CC: Sushant Tolliver DATE OF SERVICE: 03/18/2018 Cardiology Consultation HISTORY OF PRESENT ILLNESS: The patient is an 87-year-old white male who I was asked to see in the hospital today because of chest pain. The patient has an extensive past medical history. The patient had multivessel coronary bypass surgery at [facility] many years ago. He has a history of permanent atrial fibrillation and was actually cardioverted in the past. He has been chronically anticoagulated. The patient was admitted to [facility] in January with fatigue. He was found to be in rapid atrial fibrillation. He was on IV diltiazem and subsequently developed bradycardia and hypotension. 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 I then implanted permanent single lead pacemaker in January. He was readmitted a week later with fatigue and weakness. He had fallen out of bed and had been confused. He was felt to be over sedated from his sleeping pill. During that hospitalization, actually he went into a wide complex monomorphic tachycardia at 200 beats a minute consistent with ventricular tachycardia. He was cardioverted and placed on IV amiodarone. I saw him in consultation and he was switched to oral amiodarone. After loading, he was then discharged. Since his discharge, he has been very weak and not very active. Ever since he was shocked, he has had some right-sided anterior chest pain. It is worse if he sits up or coughs. He denied any fever, bleeding or vomiting. He denied any tightness on the left side of his chest. He has had no increased shortness of breath, palpitations, syncope. He does have chronic edema. Because the pain, he came to the emergency room today and was admitted. PAST MEDICAL HISTORY: Otherwise significant for hypertension, diabetes, and hyperlipidemia. MEDICATIONS: Include Lipitor, Synthroid, losartan, metoprolol, warfarin, diltiazem, metformin, amiodarone. ALLERGIES: He has no known drug allergies. FAMILY HISTORY: Positive for heart disease. SOCIAL HISTORY: He is . He and his live in [place]. 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 No [place] [address] CONSULTATION Name: ANGELICA HOANG Room: [address] IN ..#: [id number] Admission: 03/18/18 Attend Phys: Ann Tolliver MD Discharge: Date of : 31 Report #: [id number] REVIEW OF SYSTEMS: No history of stroke, asthma, peptic ulcer disease, liver disease, kidney disease, cancer, psychiatric illness. PHYSICAL EXAMINATION: GENERAL: Revealed an elderly frail appearing white male lying in bed, appeared in no acute distress. VITAL SIGNS: He had blood pressure of 100/60, pulse 80. He was afebrile. HEENT: He is anicteric. Conjunctivae pink. Mucous membranes were dry. NECK: Veins not distended. CHEST: Clear to auscultation. CARDIAC: Regular rate and rhythm. ABDOMEN: Soft. EXTREMITIES: Had 1+ edema. SKIN: Cool and dry. NEUROLOGIC: Nonfocal. DIAGNOSTIC DATA: His ECG showed atrial fibrillation with predominantly-paced rhythm. His workup in the emergency room today, he had actually had an echocardiogram in October that showed ejection fraction 35%, left atrial enlargement, mild mitral regurgitation. X-rays in the emergency room today: Portable chest x-ray showed cardiomegaly, atelectasis. He had a CT scan of the chest using a PE protocol that showed no pulmonary embolus, small effusion, atelectasis, cardiomegaly. Carotid Doppler study last month showed moderate plaquing, but no high-grade stenosis. His lab work today: Sodium 133, creatinine 1.0, glucose 231. Liver function studies were normal. Troponin 0.06. His INR was 4.0. White blood cell count 12.9, hemoglobin 10.6. IMPRESSION AND RECOMMENDATIONS: 1. Right-sided chest pain. Suspect musculoskeletal. Recommend no further cardiac workup. 2. Atrial fibrillation. Rate controlled with beta-familia. The patient has been chronically anticoagulated. I would hold his warfarin to have his INRs between 2 and 3. 3. Coronary artery disease. No symptoms of angina. 4. Cardiomyopathy. The patient is on a beta familia. His ARB has been held because of low blood pressure. 5. Hyperlipidemia. The patient cannot tolerate statin drugs in the past. 6. Diabetes. 7. History of ventricular tachycardia. The patient on amiodarone. He will need thyroid function studies, liver function studies, and chest x-ray in [address] [place] [address] CONSULTATION Name: ANGELICA HOANG Daljit Room: [address] IN Doreen.Preethi.#: [id number] Admission: 03/18/18 Attend Phys: Ann Tolliver MD Discharge: Date of : 31 Report #: [id number] months while on chronic amiodarone. Because of his advanced age and fragile overall health, I would not recommend consideration of defibrillator. <ELECTRONICALLY SIGNED> By: Sushant Parikh MD, FACC 03/19/18 1503 [id number] [id number] Parikh MD, FACC /nt
[2018-03-19 15:47] VITALS: BP 87/53
[2018-03-19 19:30] VITALS: BP 108/60
[2018-03-20] VITALS: BP 93/41
[2018-03-20 04:00] VITALS: BP 101/43
[2018-03-20 06:10] LABS: CALCIUM 8.8 mg/dL (8.5-10.1); POTASSIUM 4.2 mmol/L (3.5-5.1)
[2018-03-20 08:18] VITALS: BP 105/56
[2018-03-20] MEDS ORDERED: CARDIZEM CD120 MG PO (08:38)
[2018-03-20] MEDS ORDERED: LOPRESSOR25 PO (08:39)
[2018-03-20] MEDS ORDERED: LASIX 40 MG TAB40 M2 PO (12:09)
[2018-03-20] MEDS ORDERED: TRAZODONE HCL100 MG PO (12:09)
[2018-03-20] MEDS ORDERED: AUGMENTIN 500-1 EACH PO (12:10)
[2018-03-20] MEDS ORDERED: AZITHROMYCIN 2250 MG PO (12:12)
[2018-03-20] MEDS ORDERED: HYDROCODONE-AP1 EAC6 PO (12:19)
[2018-03-20 13:37] VITALS: BP 101/56
== END 2018-03-20 15:49 | disposition home health service (06) | DRG 871 ==
LOC: M.ERS 09:49 → M.TBA-ER 12:21 → M.2W 12:21
PROVIDERS: Family Medicine; Internal Medicine Cardiovascular Disease; ADMIT Family Medicine
DX: A41.9 Sepsis, unspecified organism (principal); J15.6 Pneumonia due to other Gram-negative bacteria; I50.22 Chronic systolic (congestive) heart failure; I42.9 Cardiomyopathy, unspecified; I13.0 Hypertensive heart and chronic kidney disease with heart failure and stage 1 through stage 4 chronic kidney disease, or unspecified chronic kidney disease; N18.3 Chronic kidney disease, stage 3 (moderate); E11.22 Type 2 diabetes mellitus with diabetic chronic kidney disease; I49.5 Sick sinus syndrome; I95.2 Hypotension due to drugs; E78.5 Hyperlipidemia, unspecified; I25.10 Atherosclerotic heart disease of native coronary artery without angina pectoris; I48.91 Unspecified atrial fibrillation; E03.9 Hypothyroidism, unspecified; Z95.1 Presence of aortocoronary bypass graft; Z79.84 Long term (current) use of oral hypoglycemic drugs; Z79.899 Other long term (current) drug therapy; Z95.0 Presence of cardiac pacemaker; Z79.01 Long term (current) use of anticoagulants; Z82.49 Family history of ischemic heart disease and other diseases of the circulatory system

== ENCOUNTER → 2018-06-06 | Outpatient (CLI) | payer MEDICARE ==
[~2018-06-06] MED LIST changes: +AUGMENTIN 500-1 EACH PO; +AZITHROMYCIN 2250 MG PO; +HYDROCODONE-AP1 EAC6 PO; +LASIX 40 MG TAB40 M2 PO; +LOPRESSOR25 PO; +TRAZODONE HCL100 MG PO
[2018-06-06 12:50] LABS: INR 1.2; PROTIME 11.9 Seconds (9.20-11.50)
== END ==
LOC: M.LAB 12:24
PROVIDERS: Internal Medicine Cardiovascular Disease
DX: I48.2 Chronic atrial fibrillation (principal)

== ENCOUNTER 2018-08-28 01:54 | Inpatient (IN) | payer MEDICARE ==
[~2018-08-28] VITALS: Ht 152.4 cm; Wt 75.3 kg
[2018-08-28] VITALS (8 sets, daily range): BP systolic 102–129; BP diastolic 60–75
[2018-08-28 02:36] LABS: ABSOLUTE BASOPHILS 0.1 thou/uL (0.0-0.2); ABSOLUTE EOSINOPHILS 0.1 thou/uL (0.0-0.7); ABSOLUTE LYMPHOCYTES 1.6 thou/uL (0.8-5.3); ABSOLUTE MONOCYTES 0.8 thou/uL (0.0-1.2); ABSOLUTE NEUTROPHILS 6.8 thou/uL (1.6-8.1); BASOPHILS 0.6 %; EOSINOPHILS 0.8 %; HEMATOCRIT 31.3 % (42.0-52.0); HEMOGLOBIN 10.4 gm/dL (14.0-18.0); LYMPHOCYTES 17.5 %; MCH 28.2 pg (26.0-34.0); MCHC 33.2 g/dL (28.0-37.0); MCV 84.9 fL (80.0-100.0); MONOCYTES 8.4 %; MPV 10.5 fl. (7.2-11.1); NUCLEATED RBCS 0 /100WBC; PLATELET COUNT* 187 thou/uL (150-400); POLYS 72.7 %; RBC 3.68 mil/uL (4.50-6.00); RDW-CV 16.5 % (10.5-14.5); WBC 9.3 thou/uL (4.0-11.0)
[2018-08-28 02:39] LABS: INR 4.3; PROTIME 43.8 Seconds (9.20-11.50)
[2018-08-28 02:47] LABS: ANION GAP 11 mmol/L (7-16); BUN 18 mg/dL (7-18); CALCIUM 8.8 mg/dL (8.5-10.1); CHLORIDE 102 mmol/L (98-107); CO2 23 mmol/L (21-32); GLUCOSE 222 mg/dL (70-99); POTASSIUM 3.8 mmol/L (3.5-5.1); SODIUM 136 mmol/L (136-145); TROPONIN-I LEVEL <0.06 ng/mL (<0.06)
[2018-08-28 02:48] LABS: ALKALINE PHOSPHATASE 149 U/L (46-116); LIPASE 95 U/L (73-393); NT-PRO BRAIN NAT PEPTIDE 1919 pg/mL (<300); SGOT 15 U/L (15-37); SGPT 14 U/L (30-65); TOTAL BILIRUBIN 0.6 mg/dL (<0.1-1.0); TOTAL PROTEIN 6.6 g/dL (6.4-8.2)
--- NOTE | 2018-08-28 07:00 | NUR ---
THIS NURSE RECEIVED REPORT FROM RAFAELA PETER. THIS NURSE TO ASSUME PT CARE AT THIS TIME.
--- NOTE | 2018-08-28 08:39 | NUR ---
PT GIVEN BREAKFAST TRAY
--- NOTE | 2018-08-28 14:04 | NUR ---
PT ADMITTED ON TELEMETRY FLOOR AT 1130 THIS AM. REPORT RECEIVED FROM ER NURSE RANI. PT IS AOX4 AFIB/PVCS ON CHIEF JAILER. PT IS PLEASANT, DENIES PAIN/ N/V. ON RA, O2 AT BEDSIDE PRN, BUT PT DOES NOT REQUIRE O2 AT THIS TIME. OXYGEN SATURATION IS 94% ON RA. VSS. HEART RATE IN THE 100S, 110S. PT IS ASYMPTOMATIC. IV CARDIZEM INFUSING AT RATE 10 ORDERED. PT IS UP AD KAZ. ADMISSION ASSESSMENT AND HISTORY PERFORMED AT BEDSIDE. PT HAS A 20 GAUGE RIGHT HAND PATENT IV LINE. MEDICATIONS ADMINISTERED ORDERED. PT ATE DINER. ACCUCHECK 260. METFORMIN AND GLIPIZIDE GIVEN. WILL CONTINUE TO MONITOR PT
--- NOTE | 2018-08-28 14:37 | EKG ---
[place] [address] ELECTROCARDIOGRAM REPORT Name: ANGELICA HOANG Room: [address] ADM IN .R.#: [id number] Admission: 08/28/18 Attend Phys: Daljit Edge Discharge: Date of : 31 Report #: [id number] THIS REPORT FOR: //name// [facility] ED Test Date: 2018-08-28 Test Time: 01:59:30 Pat Name: ANGELICA HOANG Department: Room: [facility] Gender: River Tester: Aaron GONSALVES : 1930 Requested By: Ender Yi Order Number: [id number] : Jaime Reed Measurements Intervals [place] Rate: 137 P: [place]: QRS: -49 QRSD: 146 T: 126 QT: 334 QTc: 505 Interpretive Statements Atrial fibrillation Left bundle branch block Compared to ECG 03/18/2018 09:53:45 atrial fibrillation is noted Electronically Signed On 08-28-2018 14:37:12 CDT by Jaime Reed [email or web address] <ELECTRONICALLY SIGNED> By: Jaime Reed MD, [facility] 08/28/18 1437 [id number] [id number] Jaime Reed MD, [facility] /EPI
--- NOTE | 2018-08-28 14:49 | NUR ---
PT SAYS HE FELT SOB. HOB ELEVATED. PT PUT ON O2 2 L NC. O2 LEVEL IS 95%. TEN MINUTES LATER, PT COMPLAINS OF MORE SOB. OXYGEN MASK NONREBREATHER PLACED IN OXYGEN LEVEL IS 100% ON NONREBREATHER MASK. BP 106/64. HR 77, STILL AFIB ON GEOTHERMAL TECHNICIAN. WILL CONTINUE TO MONITOR.
--- NOTE | 2018-08-28 16:42 | NUR ---
NEW ORDERS RECEIVED FROM DR HERNDON. SEE CHART. IV LASIX GIVEN ORDERED. PT IS ANXIOUS WELL FAMILY. PT STATES LASIX IS NOT WORKING. NURSE WILL BLADDER SCAN PT. PT STILL ON THE NONREBREATHER SATURATION IS 99%, PT STATED NONREBREATHER HELPS HIM FEEL BETTER
--- NOTE | 2018-08-28 18:00 | NUR ---
PT MOVED TO ROOM 220 PER FAMILY REQUEST. BLADDER SCAN SHOWS 300 CC PT HAS NOT URINATED SINCE HE GOT THE LASIX AT 1600. DR PRABHAKAR MCCARTHY. AWAITING FOR ORDERS
--- NOTE | 2018-08-28 18:58 | NUR ---
PT URINATED 250 CC OF LANI COLORED URINE. CHAENL PLACEMENT ON HOLD PER DR COLES
--- NOTE | 2018-08-28 19:01 | NUR ---
CARDIZEM STOPPED ORDERED SINCE PT HR IS BETWEEN 80 AND 95.
[2018-08-29 04:08] VITALS: BP 122/80
[2018-08-29 05:01] LABS: ABSOLUTE BASOPHILS 0.1 thou/uL (0.0-0.2); ABSOLUTE LYMPHOCYTES 1.5 thou/uL (0.8-5.3); ABSOLUTE MONOCYTES 0.7 thou/uL (0.0-1.2); ABSOLUTE NEUTROPHILS 8.3 thou/uL (1.6-8.1); BASOPHILS 0.5 %; EOSINOPHILS 0.1 %; HEMATOCRIT 31.4 % (42.0-52.0); HEMOGLOBIN 10.6 gm/dL (14.0-18.0); LYMPHOCYTES 14.2 %; MCH 28.5 pg (26.0-34.0); MCHC 33.6 g/dL (28.0-37.0); MONOCYTES 6.8 %; MPV 10.5 fl. (7.2-11.1); NUCLEATED RBCS 0 /100WBC; PLATELET COUNT* 187 thou/uL (150-400); POLYS 78.4 %; RDW-CV 16.1 % (10.5-14.5); WBC 10.5 thou/uL (4.0-11.0)
[2018-08-29 05:04] LABS: PROTIME 69.5 Seconds (9.20-11.50)
[2018-08-29 05:05] LABS: CALCIUM 8.9 mg/dL (8.5-10.1); POTASSIUM 4.3 mmol/L (3.5-5.1)
[2018-08-29 05:45] LABS: INR 6.9
[2018-08-29 08:00] VITALS: BP 135/75
--- NOTE | 2018-08-29 08:08 | NUR ---
ASSUMED PT CARE AT 1930. ASSESSMENT COMPLETED CHARTED. ABLE TO MAKE NEEDS KNOWN. PT IN ROOM WITH HIM ALL NIGHT. VERY NEEDY AND ANXIOUS ABOUT CARE GIVEN. UP WITH SBA. NO C/O PAIN OR DISCOMFORT. WILL CONTINUE TO MONITOR.
--- NOTE | 2018-08-29 11:08 | NUR ---
Pt is A&O. Resides at home with his and dtr. Normally active and independent. Pt uses a walke for mobility. No home o2. Hx of [facility]. No hx of SNF. Goal is home at dc. Following for disposition needs.
--- NOTE | 2018-08-29 13:23 | NUR ---
ASSUMED PT CARE REPORT RECEIVED FROM NURSE PT IS AOX4 AFIB ON RESTAURANT CREW PERSON HR IN THE 100S. PT IS ASYMPTOMATIC. VS TAKEN. SEE CHART. OXYGEN TITRATED DOWN TO 2 L NC. O2 SATURATION IS 97% ON 2 L NC. PT URINATED 250 CC OF LANI COLORED URINE THIS AM. ACCUCHECK AC/HS. SKIN INTACT. POOR APPETITE. INSULIN GIVEN AT LUCH TIME. IV PATENT IN R HAND. CALL LIGHT AT REACH. PT DENIES PAIN, N/V. ISIDRA CONTINUE TO MONITOR
[2018-08-29 14:08] VITALS: BP 101/61
[2018-08-29 16:25] VITALS: BP 107/79
--- NOTE | 2018-08-29 17:27 | NUR ---
02 TITRATED TO 2 L NC SATURATION IS 95%.
[2018-08-29 18:28] LABS: BE -0.3 mmol/L (-2 to +3)
--- NOTE | 2018-08-29 19:34 | NUR ---
PT HAD A LARGE FORMED BOWEL MOVEMENT AFTER SUPPOSITORY ADMINISTRATION. COUNTY SURVEYOR CONSULTED. KUB DONE.
[2018-08-29 19:35] VITALS: BP 112/67
[2018-08-30] VITALS: BP 98/66
[2018-08-30 04:00] VITALS: BP 109/72
--- NOTE | 2018-08-30 04:57 | NUR ---
ASSUMED CARE OF PT AT 1900. PT IS ALERT AND ORIENTED. VSS. PERRLA. NO COMPLAINTS OF PAIN. UP WITH 1 ASSIST. PT IS IN A FIB ON THE TELEMETRY. PT IS RESTING COMFORTABLY IN BED. RESPIRATIONS ARE EVEN AND NONLABORED. WILL CONTINUE TO MONITOR PT.
[2018-08-30 05:30] LABS: PROTIME 93.9 Seconds (9.20-11.50)
[2018-08-30 05:46] LABS: INR 9.3
[2018-08-30 07:24] LABS: ALBUMIN 2.8 g/dL (3.4-5.0); CALCIUM 8.7 mg/dL (8.5-10.1); CREATININE 0.8 mg/dL (0.6-1.3); POTASSIUM 4.2 mmol/L (3.5-5.1); TOTAL BILIRUBIN 0.7 mg/dL (<0.1-1.0); TOTAL PROTEIN 5.9 g/dL (6.4-8.2)
[2018-08-30 08:00] VITALS: BP 104/65
[2018-08-30 11:34] VITALS: BP 108/70
[2018-08-30 11:59] LABS: PROTIME 78.3 Seconds (9.20-11.50)
[2018-08-30 12:19] LABS: INR 7.8
[2018-08-30 15:49] VITALS: BP 109/62
[2018-08-30 19:20] VITALS: BP 106/60
[2018-08-31] VITALS (36 sets, daily range): BP systolic 68–113; BP diastolic 44–79
--- NOTE | 2018-08-31 03:21 | NUR ---
ASSUMED CARE OF PT AT 1900. PT IS ALERT AND ORIENTED. VSS. PERRLA. NO COMPLAINTS OF PAIN. PT IS IN SINUS RYTHM ON THE TELEMETRY. PT IS RESTING COMFORTABLY IN BED. RESPIRATIONS ARE EVEN AND NONLABORED. WILL CONTINUE TO MONITOR PT.
[2018-08-31 05:13] LABS: ABSOLUTE LYMPHOCYTES 1.5 thou/uL (0.8-5.3); ABSOLUTE MONOCYTES 1.2 thou/uL (0.0-1.2); ABSOLUTE NEUTROPHILS 11.7 thou/uL (1.6-8.1); BASOPHILS 0.3 %; HEMATOCRIT 33.9 % (42.0-52.0); HEMOGLOBIN 11.1 gm/dL (14.0-18.0); LYMPHOCYTES 10.4 %; MCH 27.6 pg (26.0-34.0); MCHC 32.6 g/dL (28.0-37.0); MCV 84.7 fL (80.0-100.0); MONOCYTES 8.4 %; MPV 10.6 fl. (7.2-11.1); NUCLEATED RBCS 0 /100WBC; POLYS 80.9 %; RBC 4.01 mil/uL (4.50-6.00); RDW-CV 16.6 % (10.5-14.5); WBC 14.4 thou/uL (4.0-11.0)
[2018-08-31 05:14] LABS: PLATELET COUNT* 266 thou/uL (150-400)
[2018-08-31 05:20] LABS: PROTIME 20.1 Seconds (9.20-11.50)
[2018-08-31 05:22] LABS: CALCIUM 9.5 mg/dL (8.5-10.1); CREATININE 1.4 mg/dL (0.6-1.3)
[2018-08-31 05:30] LABS: POTASSIUM 5.8 mmol/L (3.5-5.1)
[2018-08-31 05:52] LABS: PREALBUMIN 13.1 mg/dL (18.0-35.7)
[2018-08-31 09:09] LABS: BE -3.2 mmol/L (-2 to +3); PCO2 35.8 mmHg (35.0-45.0); PO2 66.2 mmHg (75.0-100.0)
--- NOTE | 2018-08-31 11:25 | NUR ---
vss, ASSUMED CARE OF PT THIS AM, ASSESSMENT PERFORMED AND CHARTED FALL PRECAUTIONS IN PLACE, PT FAMILY AT BEDSIDE WANTING TO MOVE PT TO ICU FOR CLOSER WATCHING, PT IS ON 3L NC AND IS AFIB ON THE MONITOR, PT DENIES ANY PAIN IS UP WITH ONE TO BSC HIS BREATHING IS SHALLOW AND FAST AT 28 BREATHS A MIN, PT IS MOVING TO ICU AT THIS TIME I CALLED REPORT TO ICU AND WILL FOLLOW WITH PLAN OF CARE, PT IS NOW ON BIPAP
[2018-08-31 12:44] LABS: URINE BILIRUBIN NEGATIVE (Negative); URINE BLOOD NEGATIVE (Negative); URINE CLARITY CLEAR; URINE COLOR YELLOW; URINE GLUCOSE-RANDOM NEGATIVE (Negative); URINE KETONES TRACE (Negative); URINE LEUKOCYTES-REFLEX NEGATIVE (Negative); URINE NITRITE-REFLEX NEGATIVE (Negative); URINE PROTEIN NEGATIVE (Negative); URINE SPECIFIC GRAVITY 1.025 (1.005-1.030); URINE UROBILINOGEN 0.2 E.U./dl (0.2-1.0)
--- NOTE | 2018-08-31 15:10 | NUR ---
ASSUMED CARE OF PATIENT DIAPHORETIC, CO SOA. WANTS CHICKEN NOODLE SOUP. FAMILY AT BEDSIDE. STARTED ON DOPAMINE AND DOBUTAMINE. DR MOJICA IN TO SEE PT.
--- NOTE | 2018-08-31 17:54 | NUR ---
PATIENT OFF BIPAP AT THIS TIME ON 4 LITERS NASAL CANNULA. RESPONDS TO VOICE. CHANEL PATENT REMAINS NPO AT THIS TIME.
[2018-09-01] VITALS (80 sets, daily range): BP systolic 82–131; BP diastolic 35–76
[2018-09-01 04:20] LABS: HEMATOCRIT 29.2 % (42.0-52.0); HEMOGLOBIN 9.9 gm/dL (14.0-18.0); MCH 28.5 pg (26.0-34.0); MCHC 33.8 g/dL (28.0-37.0); MCV 84.5 fL (80.0-100.0); MPV 10.9 fl. (7.2-11.1); RBC 3.45 mil/uL (4.50-6.00); RDW-CV 16.5 % (10.5-14.5); WBC 10.7 thou/uL (4.0-11.0)
[2018-09-01 04:37] LABS: CALCIUM 8.4 mg/dL (8.5-10.1); CREATININE 1.7 mg/dL (0.6-1.3)
[2018-09-01 04:38] LABS: POTASSIUM 4.7 mmol/L (3.5-5.1)
[2018-09-01 05:04] LABS: INR 1.2; PROTIME 12.6 Seconds (9.20-11.50)
--- NOTE | 2018-09-01 10:55 | CON ---
[facility] [address] [place] [address] CONSULTATION Name: ANGELICA HOANG Room: [address] IN M.R.#: [id number] Admission: 08/28/18 Attend Phys: Daljit Edge Discharge: Date of : 31 Report #: [id number] THIS REPORT FOR: //name// CC: Sushant Parikh [facility] physician/PCP Rush Pelayo DATE OF SERVICE: 08/30/2018 REASON FOR EVALUATION: Hypoxemia, shortness of breath. REFERRING PHYSICIAN: Dr. Gonsalez. HISTORY OF PRESENT ILLNESS: He is a pleasant 88-year-old gentleman with a history of ischemic cardiomyopathy with ejection fraction of 35%. He was admitted with atrial fibrillation with rapid ventricular response. He is known to have atrial fibrillation, pacemaker, sick sinus syndrome, was treated previously on amiodarone. He is complaining of weakness and fatigue. He is complaining of intermittent shortness of breath. His chest x-ray, which I have reviewed, showed pulmonary edema, cardiomegaly, it was done on 08/28/2018. With diuresis, he is doing partially better. He currently is complaining dyspnea on exertion. I checked his oxygen saturation on room air. It is 90%. He denies any cough, wheezing or chest pain. He denies previous history of asthma or smoking. Partial improvement with bronchodilator treatment. FAMILY HISTORY: Hypertension. REVIEW OF SYSTEMS: CONSTITUTIONAL: Feeling weak. ENT: Unremarkable. RESPIRATORY: As above. Otherwise, 14-point review of systems as above. SOCIAL HISTORY: Denies smoking. PAST MEDICAL HISTORY: Includes AFib, coronary artery disease, pacemaker, diabetes, hypertension, hypothyroidism. He is on anticoagulation. History of diastolic heart failure. PHYSICAL EXAMINATION: GENERAL: The patient is pleasant, not in distress. VITAL SIGNS: Stable. He is afebrile. He was on 1 liter oxygen saturation 90% on room air, he was on 3 liters earlier. Respiratory rate 16, blood pressure 104/65. HEAD AND NECK: Neck is supple. Oral mucosa clear. No JVD. CHEST: Few basilar [place] [address] CONSULTATION Name: ANGELICA HOANG Room: [address]#: [id number] Admission: 08/28/18 Attend Phys: Daljit Edge Discharge: Date of : 31 Report #: [id number] CARDIOVASCULAR: Regular rhythm. ABDOMEN: Soft, nontender. EXTREMITIES: No edema. Pulses were equal. NEUROLOGIC: Alert, oriented, moving extremities. PSYCHIATRY: Not in distress. Flat affect. LABORATORY AND DATABASE: White blood cell count was normal. Chest x-ray as above on the showed pulmonary edema with diffuse interstitial markings consistent with CHF. ASSESSMENT AND PLAN: Acute hypoxemic respiratory failure related to congestive heart failure with decompensation. His decompensation is likely related to atrial fibrillation. At this time, agree with diuresis. We will obtain followup chest x-ray after diuresis. Obtain followup chest x-ray on Sunday. Currently, the patient is improving, he is down from 3 liters to 1 liter. Doubt reactive airway disease. We will recommend to switch DuoNeb to Xopenex to decrease the likelihood of exacerbating his atrial fibrillation. Other possible contributing factors include atelectasis. Recommend to increase activity. Recommend to use incentive spirometry and to correct his coagulopathy. He will continue to follow up with you. Currently, the patient is improving. We will follow up on Sunday with a chest x-ray. Please call with questions as was discussed with the patient, his family and his nurse. <ELECTRONICALLY SIGNED> By: Gildardo Dumont MD 09/01/18 1055 1129 [id number] Dumont MD /nt
--- NOTE | 2018-09-01 18:23 | NUR ---
PROGRESSING TOWARD GOALS. DOPAMINE OFF 97%ON RA. TAKING PO WELL. VOIDING PER CHANEL. PROGRESSING
[2018-09-02] VITALS (42 sets, daily range): BP systolic 87–133; BP diastolic 51–92
[2018-09-02 04:43] LABS: HEMATOCRIT 26.2 % (42.0-52.0); HEMOGLOBIN 8.9 gm/dL (14.0-18.0); MCH 28.4 pg (26.0-34.0); MCV 83.7 fL (80.0-100.0); RBC 3.13 mil/uL (4.50-6.00); RDW-CV 16.2 % (10.5-14.5)
[2018-09-02 05:00] LABS: CALCIUM 8.5 mg/dL (8.5-10.1); CREATININE 1.2 mg/dL (0.6-1.3); MAGNESIUM 2.2 mg/dL (1.8-2.4); POTASSIUM 3.8 mmol/L (3.5-5.1)
[2018-09-02 05:03] LABS: INR 1.2; PROTIME 12.2 Seconds (9.20-11.50)
--- NOTE | 2018-09-02 06:42 | NUR ---
PT RESTING QUIELTY WITH EYES CLOSED OFF AND ON DURING NOC, AFIB HR TRENDING UP DURING SHIFT FROM ONE TEENS TO HIGH ONE FIFTYS, SUBSTAINGING 120'S TO HIGH 130'S, C/O MISTERNAL CHEST PRESSURE, DENIES ANYTHING THAT EITHER AGGRIVATES OR RELEIVES CHEST PRESSURE, RESP EVEN AND NON-LABORED, SAO2 97% ON 2L PER NC, SKIN REMAINS WARM AND DRY, REMAINS A/O X4, STAT EKG OBTAINED, DR MOJICA NOTIFIED VIA TELEPHONE, NEW ORDERS OBTAINED FOR MORPHINE 2MG IVP X1, RESTART METOPROLOL 25MG XL PO BID WITH FIRST DOSE NOW, AND X1 SERUM TROPONIN LEVEL. WILL INITATE ORDERS AND COMMUNICATE THEM WITH PATIENT.
--- NOTE | 2018-09-02 07:37 | NUR ---
PROGRESSING TOWARDS GOALS, MORPHINE 2MG IVP GIVEN FOR MIDSTERNAL PRESSURE EFFECTIVE, AWAITING PHARMACY FOR METOPROLOL 25MG PO TO BE GIVEN, PASSED ON INFORMATION TO KARSTEN RN TO ADMINISTER, AWAKE, ALERT, AND CONVERSATIVE THIS AM, 1900CC CLEAR YELLOW URINE OUT, DENIES SOA OR DIFFICULTY BREATHING, USING CALL LIGHT APPROPRIATELY, DENIES NEEDS AT THIS TIME. REMAINS AFIB HR ONE-TEENS AT THIS TIME.
--- NOTE | 2018-09-02 09:24 | EKG ---
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 Maker Apprentice: LAURA RUSSO : 1930 Requested By: Steven Mcgraw Order Number: [id number] Juan C MD: Sushant Parikh Measurements Intervals [place] Rate: 134 P: [place]: QRS: -46 QRSD: 157 T: 135 QT: 337 QTc: 503 Interpretive Statements atrial fibrillation left axis Left bundle branch block Compared to ECG 08/28/2018 01:59:30 No significant changes Electronically Signed On 09-02-2018 9:23:44 CDT by Sushant Parikh [email or web address] <ELECTRONICALLY SIGNED> By: Sushant Parikh MD, [facility] [id number] [phone] Sushant Parikh MD, [facility] /EPI
--- NOTE | 2018-09-02 12:41 | 2DMMODE ---
[place] [address] 2 D/M-MODE ECHOCARDIOGRAM Name: ANGELICA HOANG [facility]#: [id number] Admission: 08/28/18 Attend Phys: Rush Pelayo Discharge: Date of : 32 Date of Service: 09/02/18 1241 Report #: [id number] THIS REPORT FOR: //name// APPROVED REPORT Study performed: 09/02/2018 09:47:14 EXAM: Comprehensive 2D, Doppler, and color-flow Echocardiogram Patient Location: In-Patient Room #: 003 Status: routine BSA: 1.87 HR: 103 bpm BP: 120/58 mmHg Rhythm: Atrial Fibrillation Other Information Study Quality: Good Indications Atrial Fibrillation Chest Pain Pleural Effusion 2D Dimensions IVSd: 10.02 (7-11mm) LVOT Diam: 20.59 (18-24mm) LVDd: 60.76 mm PWd: 8.71 (7-11mm) Ascending Ao: 40.49 (22-36mm) LVDs: 49.98 (25-40mm) Aortic Root: 33.89 mm Volumes Left Atrial Volume (Systole) LA ESV Index: 74.30 mL/m2 Aortic Valve AoV Peak Jorge.: 1.50 m/s AO Peak Gr.: 8.95 mmHg LVOT Max P.92 mmHg AO Mean Gr.: 5.98 mmHg LVOT Mean P.02 mmHg LVOT Max V: 0.69 m/s AO V2 VTI: 22.86 cm LVOT Mean V: 0.47 m/s JAMEY (VTI): 1.59 cm2 LVOT V1 VTI: 10.90 cm TDI Lateral E' Jorge.: 0.10 m/[place] [address] 2 D/M-MODE ECHOCARDIOGRAM Name: ANGELICA HOANG Room: [address] IN [facility]#: [id number] Admission: 08/28/18 Attend Phys: Rush Pelayo Discharge: Date of : 32 Date of Service: 09/02/18 1241 Report #: [id number] Pulmonary Valve PV Peak Jorge.: 0.99 m/s PV Peak Gr.: 3.92 mmHg Tricuspid Valve RAP Estimate: 5.00 mmHg TR Peak Gr.: 37.88 mmHg RVSP: 42.00 mmHg PA Pressure: 42.00 mmHg Left Ventricle Left ventricle is mildly dilated. Regional wall motion abnormalities are noted. Hypokinesis of the anterior wall. There is normal left ventricular wall thickness. Left ventricular systolic function is severely decreased. LVEF is 25-30%. This study is not technically sufficient to allow evaluation of the LV diastolic function due to atrial fibrillation. Right Ventricle Right ventricle is mildly dilated. The right ventricular systolic function is normal. Pacemaker lead is present in the right ventricle. Atria Left atrium is severely dilated. Right atrium is moderately dilated. Aortic Valve Mild aortic valve sclerosis. No aortic regurgitation is present. Mild aortic stenosis. Mitral Valve The mitral valve is normal in structure. Moderate mitral regurgitation. No evidence of mitral valve stenosis. Tricuspid Valve The tricuspid valve is normal in structure. Moderate tricuspid regurgitation. Moderate pulmonary hypertension. Pulmonic Valve The pulmonary valve is normal in structure. Trace pulmonic regurgitation. Great Vessels The aortic root is normal in size. Ascending aorta is dilated. IVC is normal in size and collapses >50% [place] [address] 2 D/M-MODE ECHOCARDIOGRAM Name: ANGELICA HOANG Room: [address] IN ..#: [id number] Admission: 08/28/18 Attend Phys: Rush Pelayo Discharge: Date of : 32 Date of Service: 09/02/18 1241 Report #: [id number] Pericardium There is no pericardial effusion. Left pleural effusion. <Conclusion> Left ventricle is mildly dilated. There is normal left ventricular wall thickness. Left ventricular systolic function is severely decreased. LVEF is 25-30%. Pacemaker lead is present in the right ventricle. Right ventricle is mildly dilated. Left atrium is severely dilated. Right atrium is moderately dilated. Ascending aorta is dilated. Mild aortic stenosis. Moderate mitral regurgitation. Moderate tricuspid regurgitation. Moderate pulmonary hypertension. IVC is normal in size and collapses >50% with inspiration. Left pleural effusion. <ELECTRONICALLY SIGNED> By: Steven Mcgraw MD, FACC 09/02/18 1241 1241 1241 Steven Mcgraw MD, FACC /INF
--- NOTE | 2018-09-02 18:46 | NUR ---
09/02: Care assumed at 1800 from previous RN. Uneventful hour
--- NOTE | 2018-09-02 22:57 | NUR ---
AFIB HR TRENDING UP TO 140'S TO 160'S, B/P STABLE, DENIES SOA OR DIFFICULTY BREATHING, RESP EVEN AND NONLABORED, SKIN WARM AND DRY, MIDSTERNAL CHEST PRESSURE, 5/10 NUMERICAL PAIN SCALE, DENIES AGGRAVATING OR RELIEVING FACTORS, OXYGEN 2L PER NC INITATED, DR MENDIETA NOTIFIED, NEW ORDERS OBTAINED MORPHINE 2MG IVP [id number] PRN FOR CHEST PAIN OR PRESSURE AND CARDIZEM GTT 5MG IV KEEP SBP =>100, MORPHINE 2MG IVP GIVEN PER ORDER, CARDIZEM GTT INITATED, WILL CONTINUE TO MONITOR AND TX INDICATED.
[2018-09-03] VITALS (57 sets, daily range): BP systolic 86–112; BP diastolic 50–79
--- NOTE | 2018-09-03 00:53 | NUR ---
DR HAWKINS HERE ON UNIT, PT REMAINS AFIB RVR HR RANGING FROM 130'S TO HIGH 150'S, NEW ORDERS RECEIVED TO STOP CARDIZEM GTT, GIVE AMIODERONE 150MG IV BOLUS, THEN START PT ON AMIODERONE GTT PER ICU PROTOCOL. WILL INITATE ORDERED AND CONTINUE TO MONITOR.
[2018-09-03 04:58] LABS: INR 1.1; PROTIME 11.3 Seconds (9.20-11.50)
[2018-09-03 05:27] LABS: CALCIUM 8.6 mg/dL (8.5-10.1); CREATININE 1.1 mg/dL (0.6-1.3); POTASSIUM 4.2 mmol/L (3.5-5.1)
--- NOTE | 2018-09-03 06:26 | NUR ---
SLOW PROGRESSION TOWARDS GOALS, REMAINS ON AMIODERONE GTT, CHEST PRESSURE RESOLVED, DENIES CHEST PAIN OR PRESSURE THIS AM, AWAKE, ALERT AND CONVERSATIVE, DENIES SOA OR DIFFICULTY BREATHING, REMAINS ON 2L OXYGEN PER NC, SAO2 =>96% ALL SHIFT, CONTINUES AFIB INTERMITTENT RVR, HR THIS AM FROM 106-140'S, RVR TRENDING DOWN THROUGHT SHIFT ON AMIODERONE GTT, HAD BEEN LOW 100'S TO HIGH 170'S, SERUM SODIUM LEVEL THIS AM 136, CHANEL PATENT TO DD, 500CC LANI OUTPUT VIA CHANEL CATHETER, DENIES NEEDS AT PRESENT TIME, BED REMAINS IN LOW AND LOCKED POSITION, CALL LIGHT IN REACH.
--- NOTE | 2018-09-03 10:45 | NUR ---
SPOKE WITH PT AND DTR CAROL. PT PLANS ON RETURNING HOME AT DISCHARGE, HE LIVES WITH HIS AND DTR CAROL. PT HAS HAD CHCS IN THE PAST AND DTR WOULD LIKE HOME HEALTH AGAIN AT DISCHARGE. CASE MGT WILL CONTINUE TO FOLLOW.
[2018-09-03 11:40] LABS: CALCIUM 8.7 mg/dL (8.5-10.1); CREATININE 1.1 mg/dL (0.6-1.3); POTASSIUM 4.2 mmol/L (3.5-5.1)
--- NOTE | 2018-09-03 16:45 | EKG ---
[place] [address] ELECTROCARDIOGRAM REPORT Name: ANGELICA HOANG Room: [address] ADM IN M.R.#: [id number] Admission: 08/28/18 Attend Phys: Daljit Edge Discharge: Date of : 32 Report #: [id number] THIS REPORT FOR: //name// [facility] Test Date: 2018-09-03 Test Time: 16:35:34 Pat Name: ANGELICA HOANG Department: Room: [address] Gender: M Sap Fico Business Analyst: : 1930 Requested By: Sushant Parikh Order Number: [id number] Juan C MD: Sushant Parikh Measurements Intervals [place] Rate: 96 P: [place]: QRS: -45 QRSD: 151 T: 123 QT: 375 QTc: 474 Interpretive Statements Atrial fibrillation and V-paced complexes No further rhythm analysis attempted due to paced rhythm Left bundle branch block Compared to ECG 09/02/2018 05:31:52 rate slowed Electronically Signed On 09-03-2018 16:45:08 CDT by Sushant Parikh [email or web address] <ELECTRONICALLY SIGNED> By: uSshant Parikh MD, FAC 09/03/18 1645 1635 1635 Sushant Parikh MD, [facility] /EPI
--- NOTE | 2018-09-03 18:49 | NUR ---
PT CARE ASSUMED AFTER REPORT. ASSESSMENTS COMPLETE. AFIB WITH RVR THIS AM. CURRENTLY AFIB. PT TO WIRE ANNEALER. NO STENTS PLACED. DRESSING TO R GROIN SITE WITH SOME BLOOD TO DRESSING. NO HEMATOMA. DENIES PAIN. PROGRESSING TOWARDS GOALS.
[2018-09-04] VITALS (23 sets, daily range): BP systolic 83–115; BP diastolic 58–79
--- NOTE | 2018-09-04 02:28 | NUR ---
PATIENT'S HEART RATE STARTED INCREASING AND SUSTAINED RANGE OF 140-160s. PATIENT ASYMPTOMATIC. PHYSICIAN ON DUTY INFORMED, RECEIVED ORDERS FOR AMIODARONE DRIP PER PROTOCOL.
[2018-09-04 04:26] LABS: HEMOGLOBIN 10.1 gm/dL (14.0-18.0); MCH 28.3 pg (26.0-34.0); MCHC 33.5 g/dL (28.0-37.0); MCV 84.5 fL (80.0-100.0); MPV 11.2 fl. (7.2-11.1); RBC 3.55 mil/uL (4.50-6.00); WBC 11.3 thou/uL (4.0-11.0)
[2018-09-04 04:45] LABS: INR 1.1; PROTIME 11.3 Seconds (9.20-11.50)
[2018-09-04 06:01] LABS: CALCIUM 8.3 mg/dL (8.5-10.1); CREATININE 0.9 mg/dL (0.6-1.3); POTASSIUM 3.8 mmol/L (3.5-5.1)
--- NOTE | 2018-09-04 06:31 | NUR ---
PATIENT ALERT AND ORIENTED X4. A FIB ON THE MONITOR, RATE DOWN TO 110-120. AMIODARONE DRIP CONTINUED AT 1MG/MIN. NO CHEST PAIN OR SOB OVERNIGHT. SLEPT WELL. DAUGHTER (CAROL) UPDATED ABOUT HIS CONDITION VIA PHONE.
--- NOTE | 2018-09-04 13:30 | EKG ---
[place] [address] ELECTROCARDIOGRAM REPORT Name: ANGELICA HOANG Room: [address] ADM IN M.R.#: [id number] Admission: 08/28/18 Attend Phys: Daljit Edge Discharge: Date of : 32 Report #: [id number] THIS REPORT FOR: //name// [facility] Test Date: 2018-09-04 Test Time: 08:08:34 Pat Name: ANGELICA KYLEANIEL Department: Room: [address] Gender: M Records Management Assistant: : 1930 Requested By: Sushant Parikh Order Number: [id number] Juan C MD: Sushant Parikh Measurements Intervals [place] Rate: 98 P: CT: QRS: -46 QRSD: 153 T: 130 QT: 372 QTc: 476 Interpretive Statements Afib/flut and V-paced complexes No further rhythm analysis attempted due to paced rhythm Left bundle branch block Baseline wander in lead(s) I,II,aVR,aVL Compared to ECG 09/03/2018 16:35:34 No significant changes Electronically Signed On 09-04-2018 13:30:22 CDT by Sushant Parikh [email or web address] <ELECTRONICALLY SIGNED> By: Sushant Parikh MD, FAC 09/04/18 1330 0808 0808 Sushant Parikh MD, FAC /EPI
--- NOTE | 2018-09-04 14:24 | NUR ---
Nutrition: Pt assessed for LOS. H/o DM, afib, CAD. BG varied 224-114, alb 2.8, prealb 13.1, A1c 7%. Wt is in usual range, 160s. Heart Healthy diet. Low nutrition risk at this time. RD available.
--- NOTE | 2018-09-04 18:47 | NUR ---
PATIENT ALERT UP IN ROOM AND OSEI. HR BELOW 100 TOLERATING ACTIVITY WITHOUT DISTRESS. FAMILY DISCUSSED POST HOSPITAL REHAB FOR STRENGTHENING. PROGRESSING.
[2018-09-05] VITALS (19 sets, daily range): BP systolic 87–113; BP diastolic 60–83
--- NOTE | 2018-09-05 06:25 | NUR ---
PATIENT ALERT AND ORIENTED x4, SLEPT WELL AT NIGHT. VSS. A FIB ON THE MONITOR, RANGING 110-130. O2 SATS >95% IN RA. VOIDED PER URINAL.
--- NOTE | 2018-09-05 12:56 | OP ---
[facility] [address] [place] [address] OPERATIVE REPORT Name: ANGELICA HOANG Room: [address] IN .R.#: [id number] Admission: 08/28/18 Attend Phys: Daljit Edge Discharge: Date of : 32 Report #: [id number] THIS REPORT FOR: //name// CC: Sushant MENDEZ physician/PCP [place] DATE OF SERVICE: 09/04/2018 PROCEDURE: Bronchoscopy. REASON FOR PROCEDURE: Acute respiratory failure, diffuse infiltrate on the right side, requiring intubation. PREOPERATIVE DIAGNOSIS: Evaluate for aspiration for mucus plugging. POSTOPERATIVE DIAGNOSIS: The patient has some mucus plugging. DESCRIPTION OF PROCEDURE: After obtaining emergency consent because the patient has severe respiratory failure requiring intubation, bronchoscope was advanced through the ET tube. The patient was noted to have some mucus plugging in the right mainstem, white thick in color. A suctioning of the mucus plug as well as samples was obtained. Mucus plugs were cleared with multiple suctioning. Sample was obtained, returned a yellowish sputum. It will be sent for culture. The patient tolerated procedure well, did not have desaturation and had no aspiration during the procedure on bronchoscopy. We will obtain chest x-ray in the morning. <ELECTRONICALLY SIGNED> By: Gildardo Dumont MD 09/05/18 1256 1311 1329Asem MD braden Louis
--- NOTE | 2018-09-05 16:29 | CARD ---
[address] [address] CARDIAC CATH REPORT Name: ANGELICA HOANG Room: [address] IN [facility]#: [id number] Admission: 08/28/18 Attend Phys: Daljit Edge Discharge: Date of : 32 Report #: [id number] THIS REPORT FOR: //name// APPROVED REPORT Study performed: 09/03/2018 13:42:25 Patient Details Patient Status: In-Patient Room #: ICU3 The patient is a 88 year-old male Event Personnel Steven Mcgraw Account Development Associate, Riri Solis RN RN, Josue Vargas [employer] ARCHITECT Monitor, Torsten Gomez [employer] ARCHITECT Scrub, Sushant Parikh Supervisor Riveting Procedures Performed Left Heart Catheterization, and Percutaneous Coronary Intervention Indication Non-STEMI , Atrial fibrillation, Cardiomyopathy, Chest pain Risk Factors Coronary Artery Disease Previous Procedures/Diagnoses Previous CABG Admission/Lab Medications/Medications given during procedure Glycoprotein IllbIlla Inhibitors, Heparin Unfract. Procedure Narrative The patient was brought electively to the Cardiac Catheterization Laboratory and was prepped and draped in a sterile manner. The right femoral was infiltrated with 2% Lidocaine subcutaneous anesthesia. A 6fr Ultimum Sheath sheath was inserted into the right femoral artery. Coronary angiography was performed using coronary diagnostic catheters. The right coronary system was accessed and visualized with a Diagnostic - JR4 catheter. The left coronary system was accessed and visualized with a Diagnostic - JL4 catheter. The left ventricle was accessed and visualized with a Diagnostic - JR4 -PRESSURE ONLY catheter. Closure device was deployed with a Fr Angioseal STS 6Fr. The patient tolerated the procedure well and there were no [facility] [address] [place] [address] CARDIAC CATH REPORT Name: ANGELICA HOANG Room: [address] IN [facility]#: [id number] Admission: 08/28/18 Attend Phys: Daljit Edge Discharge: Date of : 31 Report #: [id number] complications associated with the procedure. MARQUEZ VISUALIZED WITH IM SVG VISUALIZED WITH RBC Intraoperative Conscious Sedation Sedation start time: 7 Case end Time: 1557 Fentanyl 25 mcg Versed 1 mg Fluoro Time: 178 minutes Dose: DAP 681098 cGycm2 2511 mGy Contrast Type and Amount: Visipaque 300 ml Coronary Angiography The patient's coronary anatomy is right dominant. [place] Artery Percent Stenosis MARQUEZ graft to the mid LAD widely patent. Saphenous vein graft to distal right coronary artery and PDA in jump fashion patent. Diagnostic Cath Left Main 80% proximal narrowing. LAD Totally occluded after the takeoff of a small septal operations team leader. Diagonal 1 Fills retrogradely through MARQUEZ graft. Free of significant disease. Circumflex 90% stenosis proximally. Mid and distal vessel are free of significant disease. OM1 Free of significant disease. OM2 70% stenosed in the midportion. OM3 Free of significant disease. Right Coronary Totally occluded proximally. R PDA Filled by saphenous vein graft. 80% narrowed proximally. RPLV Filled by saphenous vein graft. No significant disease noted. Left Ventriculography Left Ventriculography was not performed. Hemodynamics The aortic pressure is 105/58 mmHg with a mean of 76 mmHg. The left ventricular pressure is 106/7 mmHg with a mean of mmHg. The left ventricular end diastolic pressure is 23 mmHg. There was no gradient across the aortic valve upon pullback. Pullback from the left ventricle to the aorta revealed [place] [address] CARDIAC CATH REPORT Name: ANGELICA HOANG Room: [address] IN [facility]#: [id number] Admission: 08/28/18 Attend Phys: Daljit Edge Discharge: Date of : 31 Report #: [id number] valve. PCI Technique Lesion Anticoagulation was achieved with Heparin. blus of iv aggrastat given Percutaneous coronary intervention was performed on the LM. The lesion stenosis prior to intervention was 90% with STEVIE 3 flow. A 6FR XB 3.5 SH Guide Catheter was used to engage the lm ostium. A IG: BMW 190cm Interventional Guidewire was used to cross the lesion. BALLOON DILATION A Balloon catheter Mini Trek RX 1.2X8 was inserted and inflated up to 8.00atm for 7seconds. Repeat angiography revealed the following post-dilatation results: 90% stenosis. Additional Inflation: 16.00atm for 18seconds. Additional Inflation: 20.00atm for 10seconds. After advancing the BMW wire across the stenosis into the proximal circumflex and into the second marginal branch, attempt was made to advance a 2.5 x 8 mm balloon across the stenosis. However, the balloon could not be advanced across the stenosis. The balloon was inflated in the protected left main, although the balloon was unable to be advanced into the proximal circumflex. Attempt was made to advance a 1.25 x 8 mm balloon was also unsuccessful. Difficulty appeared to be secondary to heavy calcification, tortuosity, and severity of the stenosis. Previous complete occlusion with antegrade collateral flow could not be excluded. It was decided to abandon further efforts at PTCA and medical therapy was recommended. Final angiography reveals 90 % stenosis with STEVIE 3 flow. Conclusion 1. Unsuccesful PTCA of the left main and proximal circumflex. Recommendations If the patient continues to complain of angina despite medical therapy, atherectomy of the proximal circumflex would be recommended. Diagnostic Cath Approved by: Steven Mcgraw MD Date/Time: <ELECTRONICALLY SIGNED> By: Sushant Parikh MD, FACC 09/05/18 1629 1629Darena Parikh MD, FAC /INF
--- NOTE | 2018-09-05 17:52 | NUR ---
PT CARE ASSUMED AFTER REPORT. ASSESSMENTS COMPLETE. AFIB ON MONITOR WITH HR IN THE 130'S/140'S THIS AM. DILTIZEM DOSE INCREASED BY AXEL EVERETT. HR NOW 80'S TO 90'S. PT UP WITH PHYSICAL THERAPY TODAY AND SAT IN HIS CHAIR FOR MEALS. DENIES PAIN. PROGRESSING TOWARDS GOALS.
[2018-09-06] VITALS (15 sets, daily range): BP systolic 86–104; BP diastolic 56–70
[2018-09-06 04:56] LABS: HEMATOCRIT 29.4 % (42.0-52.0); HEMOGLOBIN 10.1 gm/dL (14.0-18.0); MCH 28.9 pg (26.0-34.0); MCHC 34.5 g/dL (28.0-37.0); MCV 83.8 fL (80.0-100.0); MPV 10.5 fl. (7.2-11.1); RBC 3.5 mil/uL (4.50-6.00); RDW-CV 16.6 % (10.5-14.5); WBC 10.3 thou/uL (4.0-11.0)
[2018-09-06 05:20] LABS: ALBUMIN 2.4 g/dL (3.4-5.0); CALCIUM 8.4 mg/dL (8.5-10.1); CREATININE 0.9 mg/dL (0.6-1.3); MAGNESIUM 2.2 mg/dL (1.8-2.4); TOTAL BILIRUBIN 0.7 mg/dL (<0.1-1.0); TOTAL PROTEIN 5.3 g/dL (6.4-8.2)
--- NOTE | 2018-09-06 09:30 | NUR ---
SPOKE WITH BUSINESS MANAGEMENT ASSOCIATE TO NOTIFY HER OF CONSULT FOR REHAB EVAL.
--- NOTE | 2018-09-06 14:37 | NUR ---
RECEIVED REFERRAL FOR ACUTE REHAB. WILL CONTINUE TO FOLLOW WHILE IN HOSPITAL STAY. THANK YOU FOR THE REFERRAL
--- NOTE | 2018-09-06 18:33 | NUR ---
PT CARE ASSUMED AFTER REPORT. ASSESSMENTS COMPLETE. AFIB ON MONITOR. PT A/O X4. UP WITH STAND BY ASSIST. DENIES PAIN. PROGRESSING TOWARDS GOALS.
--- NOTE | 2018-09-06 22:55 | NUR ---
PATIENT TO TELE ON A WHEELCHAIR ACCOMPANIED BY RAFAELA QUIJANO AND ON THE MONITOR. VITALS STABLE, SALINE LOCKED. ABLE TO MOVE TO WHEELCHAIR WITH NO DIFFICULTY. DAUGHTER NOTIFIED OF TRANSFER.
--- NOTE | 2018-09-06 23:00 | NUR ---
RECEIVED REPORT AND TRANSFERRED TO ROOM WITH BELONGINGS PER W/C. TELEMETRY APPLIED SHOWING A-FIB. ASSESSMENT COMPLETED. WILL CONT TO MONITOR AND ASSIST NEEDED.
[2018-09-07 04:10] VITALS: BP 100/71
[2018-09-07 05:27] LABS: HEMOGLOBIN 10.1 gm/dL (14.0-18.0); MCH 28.1 pg (26.0-34.0); MCHC 33.8 g/dL (28.0-37.0); MCV 83.1 fL (80.0-100.0); MPV 10.7 fl. (7.2-11.1); RBC 3.6 mil/uL (4.50-6.00); RDW-CV 17.1 % (10.5-14.5); WBC 12.8 thou/uL (4.0-11.0)
[2018-09-07 05:58] LABS: CALCIUM 8.3 mg/dL (8.5-10.1); MAGNESIUM 2.1 mg/dL (1.8-2.4); POTASSIUM 3.8 mmol/L (3.5-5.1)
--- NOTE | 2018-09-07 06:34 | NUR ---
PT ANXIOUS WITH DIFFICULTY GETTING TO SLEEP, SLEPT WELL AFTER APPROX 0100. TELEMETRY CONT TO SHOW A-FIB. NO CHANGE IN ASSESSMENT. HS GOALS OF REST AND SAFETY ACHIEVED. HOURLY ROUNDING OBSERVED.
[2018-09-07 07:51] VITALS: BP 94/57
[2018-09-07] MEDS ORDERED: LEVALBUTER1.25 MG/0. INH (10:34)
[2018-09-07] MEDS ORDERED: CELEXA20 MG PO (10:35)
[2018-09-07] MEDS ORDERED: ELIQUIS5 MG PO (11:11)
[2018-09-07] MEDS ORDERED: DIGOXIN125 MCG PO (11:14)
[2018-09-07] MEDS ORDERED: RANEXA500 MG PO (11:15)
--- NOTE | 2018-09-07 11:57 | NUR ---
PT.TO DISCHARGE TODAY WITH HOME HEALTH. PER PREVIOUS NOTE, PT'S DAUGHTER WANTS HIM TO HAVE [facility] THEY HAVE HAD THEM BEFORE. CM CONTACTED CINDY/[facility] AND FAXED HER FACE SHEET,FACE TO FACE FORM,DISCHARGE SUMMARY AND DISCHARGE ORDERS TO HER AT [phone]. DAUGHTER,CAROL'Jolene, PHONE NUMBER PUT ON FACE SHEET TO BE CALL ABOUT APPT. SHE SAID HER PARENTS CAN NEVER HEAR THEIR CELL PHONES. ORDER FOR NEBULIZER. FAXED ORDER,DISCHARGE SUMMARY AND FACE SHEET TO [facility]. SHE CONFIRMED RECEIVING ORDER. IT WILL BE DELIVERED TO PTS HOME. PT.ON [facility] WHICH IS A NEW HOME MED FOR HIM. CALLED INTO HIS PHARMACY TO CHECK COPAY. IT REQUIRED A PRIOR AUTHNoble MARKS/CARDIOLOGY NURSE HERE. SHE WILL GIVE HIM 2 WEEKS WORTH OF SAMPLES AND OFFICE WILL GET PRIOR AUTH.
[2018-09-07] MEDS ORDERED: ASPIR 8181 M1 PO (12:04)
--- NOTE | 2018-09-07 14:48 | NUR ---
ORDER RECEIVED TO [facility] TO SELF CARE WITH AND DAUGHTER. MED REC, MEDICAITON EDUCATION, STROKE EDUCATION, AND NEED FOR REGULAR BLOOD PRESSURE AND HEART RATE CHECKS EXPLAINED TO PATINET AND DAUGHTER. PATINET AND DAUGHTER WERE GIVEN AMPLE TIME TO HAVE ALL QUESTIONS ANSWERED. L UPPER ARM PICC DC'D AND TELEMTRY PACK REMOVED. HOURLY ROUNDING COMPLETED FOR PATIENT SAFETY AND [facility] WAS TAKEN VIA WHEELCHAIR TO AWAITING CARE WITH FAMILY PRESENT. PATIENT IN NOAPPARNET SIGNS OF DISTRESS AT TIME OF DISCHARGE. DISCHARGE TIME OF 12:45.
== END 2018-09-07 12:45 | disposition home health service (06) | DRG 280 ==
LOC: M.ERS 01:54 → M.TBA-ER 03:47 → M.2W 03:47 → M.ICU 08-31 11:31 → M.2W 09-06 23:11
PROVIDERS: Emergency Medicine; Family Medicine; Internal Medicine; Internal Medicine Cardiovascular Disease; Registered Nurse; ADMIT Internal Medicine
PROC: 02HV33Z Insertion of Infusion Device into Superior Vena Cava, Percutaneous Approach (ICD-10-PCS; principal; 2018-08-31)
PROC: 0BC38ZZ Extirpation of Matter from Right Main Bronchus, Via Natural or Artificial Opening Endoscopic (ICD-10-PCS; 2018-09-04)
PROC: 02JA3ZZ Inspection of Heart, Percutaneous Approach (ICD-10-PCS; 2018-09-05)
PROC: 4A023N7 Measurement of Cardiac Sampling and Pressure, Left Heart, Percutaneous Approach (ICD-10-PCS; 2018-09-05)
PROC: B211YZZ Fluoroscopy of Multiple Coronary Arteries using Other Contrast (ICD-10-PCS; 2018-09-05)
DX: I21.4 Non-ST elevation (NSTEMI) myocardial infarction (principal); J69.0 Pneumonitis due to inhalation of food and vomit; J96.01 Acute respiratory failure with hypoxia; I50.43 Acute on chronic combined systolic (congestive) and diastolic (congestive) heart failure; N17.0 Acute kidney failure with tubular necrosis; R57.0 Cardiogenic shock; J15.9 Unspecified bacterial pneumonia; I11.0 Hypertensive heart disease with heart failure; E11.9 Type 2 diabetes mellitus without complications; E03.9 Hypothyroidism, unspecified; I25.5 Ischemic cardiomyopathy; I27.20 Pulmonary hypertension, unspecified; I34.0 Nonrheumatic mitral (valve) insufficiency; I25.119 Atherosclerotic heart disease of native coronary artery with unspecified angina pectoris; I48.2 Chronic atrial fibrillation; Z95.0 Presence of cardiac pacemaker; Z95.1 Presence of aortocoronary bypass graft; Z82.49 Family history of ischemic heart disease and other diseases of the circulatory system; Z79.899 Other long term (current) drug therapy

== ENCOUNTER → 2018-09-27 | Outpatient (CLI) | payer MEDICARE ==
[~2018-09-27] MED LIST changes: +ASPIR 8181 M1 PO; +CELEXA20 MG PO; +DIGOXIN125 MCG PO; +ELIQUIS5 MG PO; +LEVALBUTER1.25 MG/0. INH; +RANEXA500 MG PO
== END ==
LOC: M.LAB 15:59
DX: I48.2 Chronic atrial fibrillation (principal)

== ENCOUNTER 2019-02-09 17:52 | Emergency (ER) | payer MEDICARE ==
[~2019-02-09] VITALS: Ht 172.7 cm; Wt 68.0 kg
[2019-02-09] MEDS ORDERED: PAXIL10 MG PO (18:02)
[2019-02-09] MEDS ORDERED: XARELTO20 MG PO (18:02)
[2019-02-09] MEDS ORDERED: COLACE100 MG PO (18:03)
[2019-02-09] MEDS ORDERED: TRAZODONE HCL50 MG PO (18:16)
[2019-02-09 18:48] LABS: ABSOLUTE EOSINOPHILS 0.2 thou/uL (0.0-0.7); ABSOLUTE LYMPHOCYTES 1.6 thou/uL (0.8-5.3); ABSOLUTE MONOCYTES 0.7 thou/uL (0.0-1.2); ABSOLUTE NEUTROPHILS 4.4 thou/uL (1.6-8.1); BASOPHILS 0.4 %; EOSINOPHILS 2.4 %; HEMOGLOBIN 10.4 gm/dL (14.0-18.0); LYMPHOCYTES 22.7 %; MCH 31.2 pg (26.0-34.0); MCHC 34.5 g/dL (28.0-37.0); MCV 90.4 fL (80.0-100.0); MONOCYTES 10.7 %; NUCLEATED RBCS 0 /100WBC; PLATELET COUNT* 162 thou/uL (150-400); POLYS 63.8 %; RBC 3.32 mil/uL (4.50-6.00); RDW-CV 14.2 % (10.5-14.5); WBC 6.9 thou/uL (4.0-11.0)
[2019-02-09 18:57] LABS: CALCIUM 9.3 mg/dL (8.5-10.1); CREATININE 0.9 mg/dL (0.6-1.3); POTASSIUM 4.1 mmol/L (3.5-5.1)
[2019-02-09 19:10] LABS: ALBUMIN 3.4 g/dL (3.4-5.0); TOTAL BILIRUBIN 0.5 mg/dL (<0.1-1.0); TOTAL PROTEIN 6.6 g/dL (6.4-8.2)
[2019-02-09] MEDS ORDERED: ONDANSETRON HCL4 M2 PO (21:08)
[2019-02-09] MEDS ORDERED: TRANSDERM-SCOP1 EACH TRANSDERM (21:08)
[2019-02-09 21:24] VITALS: BP 135/81
--- NOTE | 2019-02-10 11:21 | EKG ---
[place] [address] ELECTROCARDIOGRAM REPORT Name: ANGELICA HOANG Room: [facility]#: [id number] Admission: 02/09/19 Attend Phys: Discharge: 02/09/19 Date of : 31 Report #: [id number] THIS REPORT FOR: //name// [facility] ED Test Date: 2019-02-09 Test Time: 18:43:28 Pat Name: ANGELICA KYLEANIEL Department: Room: Gender: M Sap Security Architect: : 1930 Requested By: Hallie Eddy Order Number: [id number] MD: Sushant Parikh Measurements Intervals [place] Rate: 83 P: [place]: QRS: -56 QRSD: 167 T: 123 QT: 400 QTc: 470 Interpretive Statements Afib/flut and V-paced complexes No further analysis attempted due to paced rhythm Baseline wander in lead(s) II,III,aVF Compared to ECG 09/04/2018 08:08:34 rate has slowed Electronically Signed On 02-10-2019 11:20:55 CDT by Sushant Parikh [email or web address] <ELECTRONICALLY SIGNED> By: Sushant Parikh MD, [facility] 02/10/19 1120 1843 1843 Sushant Parikh MD, [facility] /EPI
== END 2019-02-09 21:33 | disposition home or self-care (01) ==
LOC: M.ERS 17:52
PROVIDERS: Nurse Practitioner Family
DX: S06.0X0A Concussion without loss of consciousness, initial encounter (principal); R11.2 Nausea with vomiting, unspecified; E11.9 Type 2 diabetes mellitus without complications; E03.9 Hypothyroidism, unspecified; I25.10 Atherosclerotic heart disease of native coronary artery without angina pectoris; I48.91 Unspecified atrial fibrillation; I11.0 Hypertensive heart disease with heart failure; I50.9 Heart failure, unspecified; Z95.0 Presence of cardiac pacemaker; W18.09XA Striking against other object with subsequent fall, initial encounter; Y93.89 Activity, other specified; Y92.098 Other place in other non-institutional residence as the place of occurrence of the external cause; Y99.8 Other external cause status

== ENCOUNTER 2019-02-11 14:02 | Emergency (ER) | payer MEDICARE ==
[~2019-02-11] VITALS: Ht 177.8 cm; Wt 61.2 kg
[~2019-02-11 14:02] MED LIST changes: +COLACE100 MG PO; +ONDANSETRON HCL4 M2 PO; +PAXIL10 MG PO; +TRANSDERM-SCOP1 EACH TRANSDERM; +TRAZODONE HCL50 MG PO; +XARELTO20 MG PO
[2019-02-11 15:10] LABS: ABSOLUTE EOSINOPHILS 0.1 thou/uL (0.0-0.7); ABSOLUTE LYMPHOCYTES 1.5 thou/uL (0.8-5.3); ABSOLUTE MONOCYTES 0.8 thou/uL (0.0-1.2); ABSOLUTE NEUTROPHILS 5.3 thou/uL (1.6-8.1); BASOPHILS 0.3 %; EOSINOPHILS 1.7 %; HEMATOCRIT 31.3 % (42.0-52.0); HEMOGLOBIN 10.5 gm/dL (14.0-18.0); LYMPHOCYTES 19.7 %; MCH 30.7 pg (26.0-34.0); MCHC 33.5 g/dL (28.0-37.0); MCV 91.7 fL (80.0-100.0); MONOCYTES 10.6 %; MPV 10.2 fl. (7.2-11.1); NUCLEATED RBCS 0 /100WBC; PLATELET COUNT* 188 thou/uL (150-400); POLYS 67.7 %; RBC 3.41 mil/uL (4.50-6.00); RDW-CV 14.2 % (10.5-14.5); WBC 7.8 thou/uL (4.0-11.0)
[2019-02-11 15:17] LABS: CALCIUM 8.9 mg/dL (8.5-10.1); POTASSIUM 4.1 mmol/L (3.5-5.1)
[2019-02-11 15:22] LABS: ALBUMIN 3.4 g/dL (3.4-5.0); TOTAL BILIRUBIN 0.6 mg/dL (<0.1-1.0); TOTAL PROTEIN 6.6 g/dL (6.4-8.2)
[2019-02-11 16:54] LABS: URINE BILIRUBIN NEGATIVE (Negative); URINE BLOOD TRACE (Negative); URINE CLARITY CLEAR; URINE COLOR YELLOW; URINE GLUCOSE-RANDOM TRACE (Negative); URINE KETONES NEGATIVE (Negative); URINE LEUKOCYTES-REFLEX NEGATIVE (Negative); URINE NITRITE-REFLEX NEGATIVE (Negative); URINE PROTEIN NEGATIVE (Negative); URINE SPECIFIC GRAVITY 1.015 (1.005-1.030); URINE UROBILINOGEN 0.2 E.U./dl (0.2-1.0)
[2019-02-11 17:45] VITALS: BP 124/81
== END 2019-02-11 18:07 | disposition home or self-care (01) ==
LOC: M.ERS 14:02
PROVIDERS: Personal Emergency Response Attendant
DX: R41.82 Altered mental status, unspecified (principal); I48.91 Unspecified atrial fibrillation; I11.0 Hypertensive heart disease with heart failure; I50.22 Chronic systolic (congestive) heart failure; E11.9 Type 2 diabetes mellitus without complications; I25.10 Atherosclerotic heart disease of native coronary artery without angina pectoris; E03.9 Hypothyroidism, unspecified

== ENCOUNTER 2019-03-06 10:48 | Inpatient (IN) | payer MEDICARE ==
[~2019-03-06] VITALS: Ht 172.7 cm; Wt 63.5 kg
[2019-03-06 10:58] VITALS: BP 114/70
[2019-03-06 11:22] LABS: URINE BILIRUBIN NEGATIVE (Negative); URINE BLOOD TRACE (Negative); URINE CLARITY CLEAR; URINE COLOR YELLOW; URINE GLUCOSE-RANDOM NEGATIVE (Negative); URINE KETONES NEGATIVE (Negative); URINE PROTEIN 1+ (Negative); URINE SPECIFIC GRAVITY 1.025 (1.005-1.030); URINE UROBILINOGEN 0.2 E.U./dl (0.2-1.0)
[2019-03-06 11:23] LABS: URINE LEUKOCYTES-REFLEX 2+ (Negative); URINE NITRITE-REFLEX POSITIVE (Negative)
[2019-03-06 11:28] LABS: BACTERIA-REFLEX >30 Many /HPF (None Seen); SQUAMOUS 0-3 Few /LPF (0-3); URINE RBC 3-10 Few /HPF (0-2); URINE WBC-REFLEX >25 Many /HPF (0-5)
[2019-03-06 11:29] LABS: CASTS None Seen /LPF (None Seen); CRYSTALS None Seen /LPF (None Seen); MUCUS None Seen strn/LPF (None Seen)
[2019-03-06 11:50] LABS: ABSOLUTE EOSINOPHILS 0.1 thou/uL (0.0-0.7); ABSOLUTE LYMPHOCYTES 1.2 thou/uL (0.8-5.3); ABSOLUTE MONOCYTES 1.1 thou/uL (0.0-1.2); ABSOLUTE NEUTROPHILS 5.4 thou/uL (1.6-8.1); BASOPHILS 0.5 %; EOSINOPHILS 1.2 %; HEMATOCRIT 31.3 % (42.0-52.0); HEMOGLOBIN 10.7 gm/dL (14.0-18.0); LYMPHOCYTES 14.7 %; MCHC 34.1 g/dL (28.0-37.0); MCV 90.9 fL (80.0-100.0); MONOCYTES 14.4 %; MPV 10.4 fl. (7.2-11.1); NUCLEATED RBCS 0 /100WBC; PLATELET COUNT* 204 thou/uL (150-400); POLYS 69.2 %; RBC 3.44 mil/uL (4.50-6.00); RDW-CV 14.6 % (10.5-14.5); WBC 7.9 thou/uL (4.0-11.0)
[2019-03-06 11:57] LABS: CALCIUM 9.6 mg/dL (8.5-10.1); POTASSIUM 4.3 mmol/L (3.5-5.1)
[2019-03-06 11:58] LABS: APTT 31.4 Seconds (25.0-31.3); INR 1.2; PROTIME 11.8 Seconds (9.20-11.50)
[2019-03-06 12:02] LABS: ALBUMIN 3.4 g/dL (3.4-5.0); TOTAL BILIRUBIN 0.5 mg/dL (<0.1-1.0); TOTAL PROTEIN 6.6 g/dL (6.4-8.2)
[2019-03-06 15:01] LABS: AMP/METHAMP Negative (Negative); BARBITURATES Negative (Negative); BENZODIAZEPINES Negative (Negative); COCAINE Negative (Negative); METHADONE Negative (Negative); OPIATES Negative (Negative); PCP Negative (Negative); THC Negative (Negative)
[2019-03-06 16:00] VITALS: BP 106/55
--- NOTE | 2019-03-06 16:56 | EKG ---
[place] [address] ELECTROCARDIOGRAM REPORT Name: ANGELICA HOANG Room: [place] [address] ADM IN [facility]#: [id number] Admission: 03/06/19 Attend Phys: Daljit Edge Discharge: Date of : 32 Report #: [id number] THIS REPORT FOR: //name// [facility] ED Test Date: 2019-03-06 Test Time: 11:07:00 Pat Name: ANGELICA KYLEANIEL Department: Room: [facility] Gender: M Truer Pinion And Wheel: SEDRICK : 1930 Requested By: Hallie Eddy Order Number: [id number] MD: Steven Mcgraw Measurements Intervals [place] Rate: 65 P: 0 [place]: 65 QRS: -45 QRSD: 146 T: 168 QT: 373 QTc: 388 Interpretive Statements Ventricular-paced complexes No further analysis attempted due to paced rhythm Compared to ECG 02/09/2019 18:43:28 Atrial fibrillation no longer present Electronically Signed On 03-06-2019 16:56:22 CDT by Steven Mcgraw [email or web address] <ELECTRONICALLY SIGNED> By: Steven Mcgraw MD, FACC 03/06/19 1656 1107 1107 Steven Mcgraw MD, FACC /EPI
[2019-03-06 17:05] VITALS: BP 106/55
[2019-03-06 20:34] VITALS: BP 141/60
[2019-03-07 00:09] VITALS: BP 127/74
[2019-03-07 04:00] VITALS: BP 109/69
[2019-03-07 04:43] LABS: HEMATOCRIT 30.3 % (42.0-52.0); HEMOGLOBIN 10.2 gm/dL (14.0-18.0); MCH 31.1 pg (26.0-34.0); MCHC 33.8 g/dL (28.0-37.0); MPV 10.4 fl. (7.2-11.1); RBC 3.29 mil/uL (4.50-6.00); RDW-CV 14.5 % (10.5-14.5); WBC 5.4 thou/uL (4.0-11.0)
[2019-03-07 05:15] LABS: CREATININE 0.8 mg/dL (0.6-1.3); POTASSIUM 4.1 mmol/L (3.5-5.1)
[2019-03-07 07:10] VITALS: BP 94/55
[2019-03-07] MEDS ORDERED: DOXYCYCLINE PO (10:14)
[2019-03-07 10:18] VITALS: BP 94/55
[2019-03-07 12:11] VITALS: BP 113/56
== END 2019-03-07 14:04 | disposition home or self-care (01) | DRG 727 ==
LOC: M.ERS 10:48 → M.2W 12:20 → M.TBA-ER 12:20 → M.2W 16:56
PROVIDERS: Nurse Practitioner Family; ADMIT Internal Medicine
DX: N41.0 Acute prostatitis (principal); G93.41 Metabolic encephalopathy; N30.01 Acute cystitis with hematuria; I50.22 Chronic systolic (congestive) heart failure; I25.10 Atherosclerotic heart disease of native coronary artery without angina pectoris; I48.91 Unspecified atrial fibrillation; E11.9 Type 2 diabetes mellitus without complications; E03.9 Hypothyroidism, unspecified; I49.5 Sick sinus syndrome; E78.00 Pure hypercholesterolemia, unspecified; F32.9 Major depressive disorder, single episode, unspecified; I11.0 Hypertensive heart disease with heart failure; B96.89 Other specified bacterial agents as the cause of diseases classified elsewhere; Z82.49 Family history of ischemic heart disease and other diseases of the circulatory system; Z95.1 Presence of aortocoronary bypass graft; Z95.0 Presence of cardiac pacemaker; Z28.21 Immunization not carried out because of patient refusal

== ENCOUNTER → 2019-05-12 | Outpatient (CLI) | payer MEDICARE ==
[~2019-05-12] MED LIST changes: +DOXYCYCLINE PO
--- NOTE | 2019-05-12 15:11 | 2DMMODE ---
[place] [address] 2 D/M-MODE ECHOCARDIOGRAM Name: ANGELICA HOANG Room: [facility]#: [id number] Admission: 05/12/19 Attend Phys: Domenica Parker, Discharge: Date of : 32 Date of Service: 05/12/19 1510 Report #: [id number] THIS REPORT FOR: //name// APPROVED REPORT Study performed: 05/12/2019 13:47:45 EXAM: Comprehensive 2D, Doppler, and color-flow Echocardiogram Patient Location: Out-Patient BSA: 1.81 HR: 71 bpm BP: 120/60 mmHg Other Information Study Quality: Good Indications Cardiomyopathy 2D Dimensions IVSd: 11.68 (7-11mm) LVOT Diam: 20.15 (18-24mm) LVDd: 56.51 mm PWd: 10.79 (7-11mm) Ascending Ao: 35.37 (22-36mm) LVDs: 43.35 (25-40mm) Aortic Root: 28.94 mm Volumes Left Atrial Volume (Systole) LA ESV Index: 29.20 mL/m2 Aortic Valve AoV Peak Jorge.: 1.82 m/s AO Peak Gr.: 13.27 mmHg LVOT Max P.00 mmHg AO Mean Gr.: 7.26 mmHg LVOT Mean P.93 mmHg LVOT Max V: 0.71 m/s AO V2 VTI: 26.75 cm LVOT Mean V: 0.44 m/s JAMEY (VTI): 1.33 cm2 LVOT V1 VTI: 11.19 cm Mitral Valve E/A Ratio: 1.72 MV Decel. Time: 153.32 ms MV E Max Jorge.: 0.69 m/s MV PHT: 44.46 ms MVA (PHT): 4.95 cm2 [place] [address] 2 D/M-MODE ECHOCARDIOGRAM Name: ANGELICA HOANG Room: [facility]#: [id number] Admission: 05/12/19 Attend Phys: oDmenica Parker, Discharge: Date of : 32 Date of Service: 05/12/19 1510 Report #: [id number] TDI E/Lateral E': 5.31 E/Medial E': 7.67 Medial E' Jorge.: 0.09 m/s Lateral E' Jorge.: 0.13 m/s Pulmonary Valve PV Peak Jorge.: 0.95 m/s PV Peak Gr.: 3.64 mmHg Tricuspid Valve RAP Estimate: 5.00 mmHg TR Peak Gr.: 18.65 mmHg RVSP: 23.65 mmHg PA Pressure: 23.65 mmHg Left Ventricle The left ventricle is normal size. The inferior wall is hypokinetic. Distal anteroseptal wall and apex are akinetic. There is normal left ventricular wall thickness. Left ventricular systolic function is severely decreased. LVEF is 30-35%. This study is not technically sufficient to allow evaluation of the LV diastolic function due to atrial fibrillation. Right Ventricle The right ventricle is normal size. The right ventricular systolic function is normal. Pacemaker lead is present in the right ventricle. Atria Left atrium is mildly dilated. Right atrium is mildly dilated. Aortic Valve Mild aortic valve sclerosis. No aortic regurgitation is present. Mild aortic stenosis. Mitral Valve The mitral valve is normal in structure. Mild mitral regurgitation. No evidence of mitral valve stenosis. Tricuspid Valve The tricuspid valve is normal in structure. Mild tricuspid regurgitation. No pulmonary hypertension. Pulmonic Valve The pulmonary valve is normal in structure. Mild [place]mon[place] [address] 2 D/M-MODE ECHOCARDIOGRAM Name: VIKTORANGELICA D Room: [facility]#: [id number] Admission: 05/12/19 Attend Phys: Domenica Parker, Discharge: Date of : 31 Date of Service: 05/12/19 1510 Report #: [id number] Great Vessels The aortic root is normal in size. IVC is normal in size and collapses >50% with inspiration. Pericardium There is no pericardial effusion. <Conclusion> The left ventricle is normal size. There is normal left ventricular wall thickness. Left ventricular systolic function is severely decreased. LVEF is 30-35%. This study is not technically sufficient to allow evaluation of the LV diastolic function due to atrial fibrillation. Pacemaker lead is present in the right ventricle. Left atrium is mildly dilated. Right atrium is mildly dilated. Mild aortic valve sclerosis. Mild aortic stenosis. Mild mitral regurgitation. Mild tricuspid regurgitation. No pulmonary hypertension. <ELECTRONICALLY SIGNED> By: Steven Mcgraw MD, FACC 05/12/191509 09 09 Steven Mcgraw MD, FACC /INF
== END ==
LOC: M.CRD 04-30 11:00
DX: I08.8 Other rheumatic multiple valve diseases (principal)

== ENCOUNTER 2019-08-22 10:48 | Inpatient (IN) | payer MEDICARE ==
[~2019-08-22] VITALS: Ht 172.7 cm; Wt 63.2 kg
[2019-08-22 10:59] VITALS: BP 127/82
[2019-08-22] MEDS ORDERED: CLARITIN10 M3 PO (11:00)
[2019-08-22] MEDS ORDERED: ARICEPT10 M1 PO (11:00)
[2019-08-22] MEDS ORDERED: VOLTAREN GEL 1100 G1 TOP (11:01)
[2019-08-22] MEDS ORDERED: SALONPAS PATCH1 EAC1 TOP (11:05)
[2019-08-22 11:44] LABS: ABSOLUTE EOSINOPHILS 0.1 thou/uL (0.0-0.7); ABSOLUTE LYMPHOCYTES 1.4 thou/uL (0.8-5.3); ABSOLUTE MONOCYTES 0.8 thou/uL (0.0-1.2); ABSOLUTE NEUTROPHILS 8.2 thou/uL (1.6-8.1); BASOPHILS 0.5 %; EOSINOPHILS 0.7 %; HEMOGLOBIN 11.1 gm/dL (14.0-18.0); LYMPHOCYTES 13.2 %; MCH 30.8 pg (26.0-34.0); MCHC 33.7 g/dL (28.0-37.0); MCV 91.2 fL (80.0-100.0); MPV 9.4 fl. (7.2-11.1); NUCLEATED RBCS 0 /100WBC; PLATELET COUNT* 244 thou/uL (150-400); POLYS 77.6 %; RBC 3.61 mil/uL (4.50-6.00); RDW-CV 14.4 % (10.5-14.5); WBC 10.5 thou/uL (4.0-11.0)
[2019-08-22 11:52] LABS: CALCIUM 9.3 mg/dL (8.5-10.1); CREATININE 1.3 mg/dL (0.6-1.3); POTASSIUM 4.5 mmol/L (3.5-5.1)
[2019-08-22 11:53] LABS: APTT 37.1 Seconds (25.0-31.3); INR 1.4; PROTIME 14.2 Seconds (9.20-11.50)
[2019-08-22 12:03] LABS: ALBUMIN 3.4 g/dL (3.4-5.0); TOTAL BILIRUBIN 0.5 mg/dL (<0.1-1.0)
[2019-08-22 14:23] VITALS: BP 85/55
[2019-08-22 14:53] VITALS: BP 102/53
[2019-08-22] MEDS ORDERED: GLIPIZIDE 10 MG10 MG PO (15:24)
--- NOTE | 2019-08-22 17:03 | EKG ---
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1930 Requested By: Hallie Eddy Order Number: [id number] MD: Sushant Parikh Measurements Intervals [place] Rate: 87 P: [place]: QRS: -51 QRSD: 153 T: 158 QT: 355 QTc: 427 Interpretive Statements Afib and V-paced complexes and pvc Nonspecific IVCD with LAD LVH with secondary repolarization abnormality Compared to ECG 03/06/2019 11:07:00 no change Electronically Signed On 08-22-2019 17:01:59 CDT by Sushant Parikh [email or web address] <ELECTRONICALLY SIGNED> By: Sushant Parikh MD, FAC 08/22/19 1701 1107 1107 Sushant Parikh MD, FAC /EPI
[2019-08-23] VITALS: BP 103/63
[2019-08-23 04:36] LABS: HEMATOCRIT 27.7 % (42.0-52.0); HEMOGLOBIN 9.5 gm/dL (14.0-18.0); MCH 31.5 pg (26.0-34.0); MCHC 34.5 g/dL (28.0-37.0); MCV 91.5 fL (80.0-100.0); MPV 8.8 fl. (7.2-11.1); RBC 3.02 mil/uL (4.50-6.00); RDW-CV 14.2 % (10.5-14.5); WBC 8.6 thou/uL (4.0-11.0)
[2019-08-23 04:53] LABS: ANION GAP 7 mmol/L (7-16); BUN 25 mg/dL (7-18); CALCIUM 8.7 mg/dL (8.5-10.1); CHLORIDE 108 mmol/L (98-107); CO2 26 mmol/L (21-32); CREATININE 1.1 mg/dL (0.6-1.3); GLUCOSE 94 mg/dL (70-99); POTASSIUM 4.8 mmol/L (3.5-5.1); SODIUM 141 mmol/L (136-145)
[2019-08-23 04:57] VITALS: BP 110/64
[2019-08-23 05:02] LABS: CHOLESTEROL 105 mg/dL (<200); HDL CHOLESTEROL 32 mg/dL (>40); LDL CHOLESTEROL 53 mg/dL (<100); MAGNESIUM 1.8 mg/dL (1.8-2.4); TC:HDL 3.3 Ratio (Not establshd); TRIGLYCERIDE 104 mg/dL (<150); VLDL 21 mg/dL (<40)
[2019-08-23 05:18] LABS: SERUM ASSESSMENT Clear
[2019-08-23 05:19] LABS: TROPONIN-I LEVEL 20.73 ng/mL (<0.06)
[2019-08-23 08:00] VITALS: BP 121/70
--- NOTE | 2019-08-23 11:05 | CON ---
[address] [address] CONSULTATION Name: ANGELICA HOANG Room: [address] IN .R.#: [id number] Admission: 08/22/19 Attend Phys: Josue Castillo MD Discharge: Date of : 31 Report #: [id number] THIS REPORT FOR: //name// cc: Rush Mayer APRN, William R APRN ~ THIS REPORT FOR: //name// CC: Josue Mayer APRN DATE OF SERVICE: 08/22/2019 CARDIOLOGY CONSULTATION HISTORY OF PRESENT ILLNESS: The patient is an 89-year-old white male, who was lying in the Emergency Room today after he complained of left shoulder pain. The patient has an extensive past medical history. He apparently had multivessel bypass surgery at [facility] more than 20 years ago. He is not very active because of his advanced age. He has a problem with balance and he uses a cane. He has a history of permanent atrial fibrillation and has been cardioverted several times in the past. He has been chronically anticoagulated. Last year, I implanted a permanent single-chamber pacemaker when he developed bradycardia and hypertension. He does have a history of falling and confusion. Also last year, he had an episode of a wide-complex monomorphic tachycardia at 200 beats per minute because of ventricular tachycardia. He was cardioverted and placed on IV amiodarone. He was then switched to oral amiodarone. He was admitted last March with chest pain consistent with unstable angina. I performed a cardiac catheterization in 08/2018 from the right femoral artery. He was found to have severe coronary disease with an 80% narrowing of the left main artery. LAD was totally occluded after small data processing mechanic. Circumflex had a 90% proximal stenosis. The right coronary was proximally occluded. There was a vein graft that filled the posterior descending branch of the right coronary artery. No ventriculogram was performed. I then attempted angioplasty of the left main and proximal circumflex that was unsuccessful. Medical therapy was recommended. The patient was recently followed by my partner, Dr. Mcgraw. He has chronic pain in his left shoulder. He actually got a shot in his left shoulder 2 days ago with the orthopedic surgeon's office. He awakened this morning with a pain in his left shoulder. It is worse when he moves the arm. He denied any diaphoresis or nausea. There is no pain in the chest. The pain was not related to food. He denied any fever or cough. He did feel somewhat short of breath. He came to the Emergency Room where he was admitted. He denies any recent exertional dyspnea, palpitations, syncope, or bleeding. PAST MEDICAL HISTORY: Otherwise significant for no major surgical procedure. He has a history of hypertension, diabetes, memory loss, [place] [address] CONSULTATION Name: ANGELICA HOANG Room: [address] IN [facility]#: [id number] Admission: 08/22/19 Attend Phys: Josue Castillo MD Discharge: Date of : 31 Report #: [id number] MEDICATIONS: Include aspirin, atorvastatin, digoxin, diltiazem, Lasix, glipizide, Synthroid, metformin, metoprolol, Remeron, Ranexa, Xarelto. ALLERGIES: He has no known drug allergies. FAMILY HISTORY: He has positive heart disease. SOCIAL HISTORY: He is . He and his live in [place], [place]. No smoking or alcohol use. REVIEW OF SYSTEMS: No history of stroke, asthma, peptic ulcer disease, liver disease, kidney disease, cancer, psychiatric illness, chronic skin condition. PHYSICAL EXAMINATION: GENERAL: Revealed an elderly, frail-appearing male, appeared in no distress. VITAL SIGNS: He had a blood pressure of 100/60, pulse 70, he is afebrile. HEENT: He was anicteric. Conjunctivae pink. Mucous membranes moist. NECK: Veins are nondistended. CHEST: Clear to auscultation. CARDIOVASCULAR: Regular rate and rhythm. ABDOMEN: Soft. EXTREMITIES: Had no edema. Dorsalis pedis pulse cannot be palpated. SKIN: Cool and dry. LABORATORY DATA: His workup in the Emergency Room today: He had a chest x-ray in April that showed ejection fraction of 30-35%, biatrial enlargement, aortic sclerosis. There was evidence of mild mitral regurgitation and mild aortic stenosis with a peak gradient across the aortic valve of 14 mmHg. His chest x-ray has not been performed yet. LABORATORY DATA: Sodium 140, BUN 26, creatinine 1.3. Liver function studies were normal. His troponin is 1.2, it was 1.72 a year ago. BNP 4062. White blood cell count 10.5, hemoglobin 11.1. IMPRESSION AND RECOMMENDATIONS: 1. Left shoulder pain. Atypical for angina. In light of the fact that his arteriogram a year ago showed no stenosis that was amenable to stenting. I would not recommend repeat cardiac catheterization at this time. 2. Elevated troponin. Possible type 2 myocardial infarction. Recommend conservative approach. 3. Mild aortic stenosis. 4. Hypertension. The patient is on calcium-familia and beta-familia. 5. Chronic atrial fibrillation. Rate controlled with digoxin, beta-familia, calcium-familia. I would continue anticoagulation with Xarelto. 6. History [place] [address] CONSULTATION Name: ANGELICA HOANG Room: [address] IN [facility].#: [id number] Admission: 08/22/19 Attend Phys: Josue Castillo MD Discharge: Date of : 31 Report #: [id number] 7. Sick sinus syndrome. The patient has a pacemaker in place. 8. Diabetes. 9. Hyperlipidemia. The patient is on a statin drug. 10. Memory loss. <ELECTRONICALLY SIGNED> By: Sushant Parikh MD, FACC 08/23/19 1105 1320 1343Dlacho Parikh MD, FACC /nt
[2019-08-23 12:07] VITALS: BP 114/70
[2019-08-23 16:06] VITALS: BP 108/56
[2019-08-23 19:30] VITALS: BP 121/70
[2019-08-24] VITALS: BP 118/63
[2019-08-24 04:00] VITALS: BP 101/63
[2019-08-24 06:12] LABS: CREATININE 1.2 mg/dL (0.6-1.3); MAGNESIUM 1.9 mg/dL (1.8-2.4); POTASSIUM 4.7 mmol/L (3.5-5.1)
[2019-08-24 08:00] VITALS: BP 142/86
[2019-08-24] MEDS ORDERED: CLOPIDOGREL75 MG PO (08:27)
[2019-08-24] MEDS ORDERED: COZAAR 25 MG TA25 M1 PO (08:27)
[2019-08-24] MEDS ORDERED: NITROSTAT0.4 M1 SUBLING (08:38)
[2019-08-24] MEDS ORDERED: TRAMADOL 50 MG50 MG PO (08:38)
[2019-08-24 10:04] VITALS: BP 142/86
== END 2019-08-24 11:00 | disposition home or self-care (01) | DRG 281 ==
LOC: M.ERS 10:48 → M.TBA-ER 12:44 → M.2W 15:06
PROVIDERS: Nurse Practitioner Family; ADMIT Internal Medicine
DX: I21.4 Non-ST elevation (NSTEMI) myocardial infarction (principal); I50.22 Chronic systolic (congestive) heart failure; D68.69 Other thrombophilia; I48.20 Chronic atrial fibrillation, unspecified; I43 Cardiomyopathy in diseases classified elsewhere; I13.0 Hypertensive heart and chronic kidney disease with heart failure and stage 1 through stage 4 chronic kidney disease, or unspecified chronic kidney disease; M19.012 Primary osteoarthritis, left shoulder; I49.5 Sick sinus syndrome; E11.22 Type 2 diabetes mellitus with diabetic chronic kidney disease; E78.5 Hyperlipidemia, unspecified; I35.0 Nonrheumatic aortic (valve) stenosis; D64.9 Anemia, unspecified; G89.29 Other chronic pain; N18.2 Chronic kidney disease, stage 2 (mild); E03.9 Hypothyroidism, unspecified; F03.90 Unspecified dementia, unspecified severity, without behavioral disturbance, psychotic disturbance, mood disturbance, and anxiety; I25.10 Atherosclerotic heart disease of native coronary artery without angina pectoris; Z95.1 Presence of aortocoronary bypass graft; Z79.01 Long term (current) use of anticoagulants; Z79.84 Long term (current) use of oral hypoglycemic drugs; Z79.82 Long term (current) use of aspirin; Z79.899 Other long term (current) drug therapy; Z95.0 Presence of cardiac pacemaker

== ENCOUNTER 2019-12-01 22:03 | Inpatient (IN) | payer MEDICARE ==
[~2019-12-01] VITALS: Ht 172.7 cm; Wt 62.9 kg
--- NOTE | ~2019-12-01 | PROC ---
[facility] [address] [place] [address] PROCEDURE REPORT Name: ANGELICA HOANG Room: [address] IN M.R.#: [id number] Admission: 12/01/19 Attend Phys: Doreen Caban Discharge: 12/05/19 Date of : 31 Report #: [id number] THIS REPORT FOR: //name// cc: Steven Mcgraw MD, FACC, Michael J. MD FACC ~ THIS REPORT FOR: //name// For GI report, please see the Provation report in Perceptive 7 content. By: 1044Medical Records Staff [facility] /CEE
[~2019-12-01 22:03] MED LIST changes: +ARICEPT10 M1 PO; +CLARITIN10 M3 PO; +CLOPIDOGREL75 MG PO; +COZAAR 25 MG TA25 M1 PO; +GLIPIZIDE 10 MG10 MG PO; +NITROSTAT0.4 M1 SUBLING; +SALONPAS PATCH1 EAC1 TOP; +TRAMADOL 50 MG50 MG PO; +VOLTAREN GEL 1100 G1 TOP
[2019-12-01] MEDS ORDERED: ZOFRAN4 MG PO (22:16)
[2019-12-01] MEDS ORDERED: MIRTAZAPINE7.5 MG PO (22:16)
[2019-12-01 22:46] LABS: ABSOLUTE BASOPHILS 0.1 thou/uL (0.0-0.2); ABSOLUTE EOSINOPHILS 0.2 thou/uL (0.0-0.7); ABSOLUTE LYMPHOCYTES 3.7 thou/uL (0.8-5.3); ABSOLUTE MONOCYTES 0.8 thou/uL (0.0-1.2); ABSOLUTE NEUTROPHILS 8.3 thou/uL (1.6-8.1); BASOPHILS 0.5 %; EOSINOPHILS 1.3 %; HEMATOCRIT 31.6 % (42.0-52.0); HEMOGLOBIN 10.9 gm/dL (14.0-18.0); LYMPHOCYTES 28.1 %; MCHC 34.4 g/dL (28.0-37.0); MCV 92.9 fL (80.0-100.0); MONOCYTES 6.4 %; MPV 10.5 fl. (7.2-11.1); NUCLEATED RBCS 0 /100WBC; PLATELET COUNT* 242 thou/uL (150-400); POLYS 63.7 %; RDW-CV 12.8 % (10.5-14.5)
[2019-12-01 22:55] LABS: INR 1.1; PROTIME 11.4 Seconds (9.20-11.50)
[2019-12-01 23:02] LABS: CALCIUM 9.2 mg/dL (8.5-10.1); CREATININE 1.4 mg/dL (0.6-1.3); POTASSIUM 4.4 mmol/L (3.5-5.1)
[2019-12-01 23:05] LABS: ALBUMIN 3.5 g/dL (3.4-5.0); MAGNESIUM 1.9 mg/dL (1.8-2.4); TOTAL BILIRUBIN 0.4 mg/dL (<0.1-1.0); TOTAL PROTEIN 6.8 g/dL (6.4-8.2)
[2019-12-02 01:14] VITALS: BP 102/51
[2019-12-02 01:47] VITALS: BP 112/60
--- NOTE | 2019-12-02 04:52 | NUR ---
PATIENT ARRIVED ON UNIT AT APPROX 0130. ALERT AND ORIENTED TIMES FOUR. ABLE TO AMBULATE TO BATHROOM WITH STB. MINOR COMPLAINTS OF PAIN NOTED, CONTROLLED WITH IV MEDICATIONS. IV PATENT. 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
[2019-12-02 08:15] VITALS: BP 108/51
--- NOTE | 2019-12-02 09:43 | EKG ---
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1930 Requested By: Ilene Beltran Order Number: [id number] MD: Steven Mcgraw Measurements Intervals [place] Rate: 68 P: [place]: QRS: -66 QRSD: 169 T: 113 QT: 432 QTc: 460 Interpretive Statements Ventricular-paced rhythm No further analysis attempted due to paced rhythm Compared to ECG 08/22/2019 11:07:02 No significant changes noted Electronically Signed On 12-02-2019 9:43:41 CDT by Steven Mcgraw [email or web address] <ELECTRONICALLY SIGNED> By: Steven Mcgraw MD, FACC 12/02/19 0943 2244 2244 Steven Mcgraw MD, [facility] /EPI
--- NOTE | 2019-12-02 12:12 | NUR ---
CM SPOKE TO THE PT TO DISCUSS HIS HOME SITUATION, DISCHARGE PLANNING, AND TO INFORM OF THE ROLE OF CM. PT A&O, AND INDEPENDENT WITH ADL'S. PT RESIDES HOME WITH HIS SPOUSE AND DTR AND THEY BOTH ARE SUPPORTIVE AND INVOLVED IN HIS POC. PT OWNS A CANE, BUT DOES NOT CURRENTLY USE IT FOR MOBILITY. PT HAS A HX OF HH IN THE PAST AFTER A SX, BUT COULD NOT RECALL THE NAME. PT HAS 0 HX OF SNF. PLAN IS FOR THE PT TO RETURN HOME AT D/C WITH HH. PT REQUEST HH REFERRAL BE SENT TO [facility]. CM TO CONTACT [facility] AND FAX REFERRAL. CM WILL REMAIN AVIALABLE TO ASSIST AND FOLLOW NEEDED
[2019-12-02 16:45] VITALS: BP 103/54
--- NOTE | 2019-12-02 18:44 | NUR ---
PT AOX4. PT IS FORGETFUL AT TIMES AND [place]. PT IS WEAK AND REQUIRES ASSIST X1 TO BATHROOM. FAMILY AT BEDSIDE. NO C/O PAIN THIS SHIFT. PT HAS HAD NO EPISODES OF DIARRHEA/NAUSEA/VOMITING. BOWEL PREP STARTED THIS AFTERNOON PT IS REQUIRING ENCOURAGEMENT TO DRINK. NO OTHER EVENTS THIS SHIFT WILL CONTINUE TO MONITOR
[2019-12-02 22:00] VITALS: BP 100/48
[2019-12-03 02:52] VITALS: BP 100/48
--- NOTE | 2019-12-03 07:16 | NUR ---
PATIENT HAS SLEPT MOST OF THE NIGHT. VSS ON RA. PATIENT HAS REMAINED NPO SINCE MIDNIGHT D/T SCHEDULED EGD/COLONOSCOPY TODAY. PATIENT DID FINISH THE MAJORITY OF HIS BOWEL PREP. PATIENT STATED THAT HE JUST COULDN'T DRINK ANYMORE D/T IT MAKING HIM NAUSEOUS. BOWEL MOVEMENTS ARE YELLOW WITH SOME CLOUDINESS. DAY NURSE INFORMED OF PATIENTS STOOLS. IV IN LEFT AC-NS @ 80ML/HR. PATIENT INSTRUCTED TO USE CALL LIGHT WHEN NEEDING ASSISTANCE. HOURLY ROUNDS MADE. WILL CONTINUE WITH PLAN OF CARE AND NURSING TO MONITOR.
[2019-12-03 07:20] VITALS: BP 120/48
[2019-12-03 09:03] LABS: ABSOLUTE EOSINOPHILS 0.1 thou/uL (0.0-0.7); ABSOLUTE MONOCYTES 0.5 thou/uL (0.0-1.2); ABSOLUTE NEUTROPHILS 3.5 thou/uL (1.6-8.1); BASOPHILS 0.4 %; EOSINOPHILS 1.1 %; HEMATOCRIT 23.1 % (42.0-52.0); HEMOGLOBIN 8.1 gm/dL (14.0-18.0); LYMPHOCYTES 20.5 %; MCH 32.6 pg (26.0-34.0); MCHC 35.2 g/dL (28.0-37.0); MCV 92.4 fL (80.0-100.0); MONOCYTES 9.3 %; MPV 10.1 fl. (7.2-11.1); NUCLEATED RBCS 0 /100WBC; PLATELET COUNT* 126 thou/uL (150-400); POLYS 68.7 %; RDW-CV 12.6 % (10.5-14.5); WBC 5.1 thou/uL (4.0-11.0)
[2019-12-03 09:05] VITALS: BP 100/48
[2019-12-03 09:13] LABS: CREATININE 1.1 mg/dL (0.6-1.3); POTASSIUM 3.8 mmol/L (3.5-5.1)
[2019-12-03 13:48] VITALS: BP 112/55
[2019-12-03 15:10] VITALS: BP 104/54
--- NOTE | 2019-12-03 16:41 | NUR ---
PT REMAINED ALERT AND ORIENTED. PT HAS DEVELOPED A COUGH POST PROCEDURE WITH LOT OF PHLEGM. FALL RISK PRECAUTIONS IN PLACE. HOURLY ROUNDING COMPLETED. NPO AFTER MIDNIGHT FOR GASTRIC EMPTYING TEST. WILL CONTINUE TO MONITOR.
[2019-12-03 20:30] VITALS: BP 118/54
[2019-12-04] VITALS: BP 113/50
--- NOTE | 2019-12-04 01:49 | CON ---
[facility] [address] [place] [address] CONSULTATION Name: ANGELICA HOANG Room: [address] IN M.R.#: [id number] Admission: 12/01/19 Attend Phys: Doreen Caban Discharge: Date of : 31 Report #: [id number] THIS REPORT FOR: //name// cc: Steven Mcgraw MD [facility] Steven Mcgraw MD [facility] ~ THIS REPORT FOR: //name// CC: Dr. Leyla Dash DICTATED BY: Iraida Benson [facility] DATE OF SERVICE: 12/02/2019 PRIMARY CARE PHYSICIAN: Dr. Mayer. Please note at the time of this dictation, the patient was seen and physically examined by myself. REASON FOR CONSULTATION: Nausea, vomiting and diarrhea. HISTORY OF PRESENT ILLNESS: This is an 89-year-old male who presented to the Emergency Room after having several months of nausea, vomiting and diarrhea. He has only been able to keep liquids down and not been able to eat any solid foods. The patient had a telehealth visit with myself on 11/25. He was scheduled for a double on Monday 12/04 and we will cancel that procedure and proceed with that tomorrow. He states he just considerably gotten much weaker since we had talked on the phone and that he has just been unable to do much without feeling. We had requested records from [facility], but they had not come to our office yet. The patient does take anticoagulant therapy, Xarelto, and does see Dr. Mcgraw for that due to his atrial fibrillation. ALLERGIES: No known drug allergies. MEDICATIONS: From home include nitroglycerin and Plavix. PAST MEDICAL HISTORY: Atrial fibrillation, on anticoagulant, hypertension, diabetes, hypothyroidism, congestive heart failure, EF of 30%, dementia, sick sinus syndrome with a pacemaker. PAST SURGICAL HISTORY: Pacemaker and bypass surgery 20+ years ago. FAMILY HISTORY: Noncontributory. SOCIAL HISTORY: Denies any alcohol, tobacco [place] [address] CONSULTATION Name: ANGELICA HOANG Room: [address] IN [facility]#: [id number] Admission: 12/01/19 Attend Phys: Doreen Caban Discharge: Date of : 31 Report #: [id number] REVIEW OF SYSTEMS: Twelve-point review of systems is essentially negative except what is mentioned in the HPI. PHYSICAL EXAMINATION: VITAL SIGNS: Temperature 36.8, pulse 73, respirations 18, and blood pressure 108/51. HEART: Irregular rate and rhythm. LUNGS: Diminished, but clear. ABDOMEN: Soft, positive bowel sounds in all 4 quadrants with no masses or tenderness noted. LABORATORY DATA: Hemoglobin 10.9, white count is 13.8, and platelets 242. PT is 11.9 and INR is 1.1. GFR is 48. LFTs are normal. His BNP was 2451. CT shows distended gallbladder, but no stones, no pancreatitis noted or stranding. IMPRESSION: 1. Nausea and vomiting. 2. Diarrhea. 3. Anemia. 4. Anticoagulant therapy, atrial fibrillation, Xarelto. 5. Chronic kidney disease. PLAN: 1. We will move his double up till tomorrow with Dr. Torres and cancel his procedure on Sunday. 2. We will hold his anticoagulant therapy. 3. Further recommendations to be made once the procedure has been performed. Thank you for allowing us to participate in this patient's care. Please do not hesitate to call with any questions in regard to this consult. <ELECTRONICALLY SIGNED> By: Shiloh Torres MD 12/04/19 0149 1227 1303Shiloh Torres MD /nt
[2019-12-04 04:00] VITALS: BP 113/50
[2019-12-04 05:03] LABS: ABSOLUTE MONOCYTES 0.5 thou/uL (0.0-1.2); ABSOLUTE NEUTROPHILS 6.7 thou/uL (1.6-8.1); BASOPHILS 0.2 %; EOSINOPHILS 0.1 %; HEMATOCRIT 22.6 % (42.0-52.0); HEMOGLOBIN 7.9 gm/dL (14.0-18.0); LYMPHOCYTES 12.3 %; MCH 32.2 pg (26.0-34.0); MCHC 34.8 g/dL (28.0-37.0); MCV 92.4 fL (80.0-100.0); MONOCYTES 5.7 %; MPV 10.6 fl. (7.2-11.1); NUCLEATED RBCS 0 /100WBC; PLATELET COUNT* 122 thou/uL (150-400); POLYS 81.7 %; RBC 2.45 mil/uL (4.50-6.00); RDW-CV 12.5 % (10.5-14.5); WBC 8.2 thou/uL (4.0-11.0)
--- NOTE | 2019-12-04 05:14 | NUR ---
PT A&O X 4, FORGETFUL AT TIMES. VSS ON RA. PT DENIED PAIN, N/V. UP WITH STANDBY ASSIST TO BSC. NPO AFTER MIDNIGHT. SLEEPING/RESTING QUIETLY THROUGH THE NIGHT. IVF INFUSING. CALL LIGHT WITHIN REACH. BED ALARM ON. WILL CONTINUE TO MONITOR.
[2019-12-04 05:21] LABS: CALCIUM 7.6 mg/dL (8.5-10.1); CREATININE 1.1 mg/dL (0.6-1.3); POTASSIUM 3.7 mmol/L (3.5-5.1)
[2019-12-04 08:27] VITALS: BP 126/55
[2019-12-04 11:30] VITALS: BP 122/67
--- NOTE | 2019-12-04 15:08 | PATH ---
[facility] [address] [place] [address] PATHOLOGY RPT PROCEDURE Name: EDGARDO DEL ANGEL Room: [facility] IN M.R.#: [id number] Admission: 12/01/19 Date of : 32 Discharge: Report #: [id number] Path Case #: [id number] [facility] Accession Number: [id number] . 01 Material submitted: . PART A: stomach - STOMACH BIOPSY FOR GASTRITIS PART B: colon - RANDOM COLON BIOPSIES R/O MICROSCOPIC COLITIS . 01 Clinical history: . Gastritis, r/o microscopic colitis . 02 Diagnosis: A. Stomach biopsy: - Moderate nonspecific chronic gastritis with prominent intestinal metaplasia/atrophy, negative for Helicobacter pylori organisms and dysplasia. . B. Random colon biopsies: - Normal colonic mucosa. (SUKHDEV:pit 12/04/2019) . Special stain on A: H. pylori immuno P 12/04/2019 1320 Local . 02 Electronically signed: . Venkata Mccann MD, Pathologist NPI- [id number] . 01 Gross description: . A. The specimen is received in formalin, labeled "Edgardo Del Angel", "stomach biopsy". Received are multiple segments of pale trujillo soft tissue ranging in size from 0.1 cm to 0.3 cm. The specimen is entirely submitted in cassette A1. . B. The specimen is received in formalin, labeled "Edgardo Del Angel", "random colon biopsies". Received are multiple segments of pale trujillo soft tissue ranging in size from 0.1 cm to 0.4 cm. Specimen is entirely submitted in cassette B1.([facility]; 12/03/2019) EVANGELINA/ANTOINE 12/03/2019 [facility] Local . 02 Pathologist provided ICD-10: K29.50 . 02 CPT . 590608, 295175, B41020 Specimen Comment: A courtesy copy of this report has been sent to [phone] [id number] Specimen Comment: [id number], [place] [address] PATHOLOGY RPT PROCEDURE Name: EDGARDO DEL ANGEL Room: [address] IN [facility]#: [id number] Admission: 12/01/19 Date of : 31 Discharge: Report #: [id number] Path Case #: [id number] Specimen Comment: Report sent to DR Gigi BANDAY / DR MOJICA Performed at: [address] [facility] [id number] [facility] [address], [place], [place] [id number] MD Darrick Woodard MD Phone: [phone] Performed at: [address] [facility] [address], [place], [place] [id number] MD Venkata Mccann MD Phone: [phone]
[2019-12-04 16:54] VITALS: BP 108/64
--- NOTE | 2019-12-04 17:49 | NUR ---
PT AOX4, FORGETFUL. PT HAD GET TEST TODAY AND ADVANCED TO CARDIAC DIET, POOR APPETITE. PT HAS NO C/O PAIN. RECEIVING IVF AND TOLERATING WELL. PT PARTICIPATED WITH PT/OT AND INCREASING AMBULATION. FAMILY AT BEDSIDE. WILL CONTINUE TO MONITOR
[2019-12-04 20:00] VITALS: BP 121/62
[2019-12-05 04:53] LABS: ABSOLUTE EOSINOPHILS 0.1 thou/uL (0.0-0.7); ABSOLUTE MONOCYTES 0.4 thou/uL (0.0-1.2); ABSOLUTE NEUTROPHILS 3.7 thou/uL (1.6-8.1); BASOPHILS 0.4 %; EOSINOPHILS 1.4 %; HEMATOCRIT 24.2 % (42.0-52.0); HEMOGLOBIN 8.5 gm/dL (14.0-18.0); LYMPHOCYTES 19.9 %; MCH 32.3 pg (26.0-34.0); MCV 92.5 fL (80.0-100.0); MONOCYTES 7.3 %; MPV 10.8 fl. (7.2-11.1); NUCLEATED RBCS 0 /100WBC; PLATELET COUNT* 124 thou/uL (150-400); RBC 2.62 mil/uL (4.50-6.00); RDW-CV 12.5 % (10.5-14.5); WBC 5.2 thou/uL (4.0-11.0)
--- NOTE | 2019-12-05 05:00 | NUR ---
PT A&O X 4, VSS ON RA. MEDS GIVEN ORDERED. PT REFUSED SCHEDULED MIRALAX SAYING HE DOESNT WANT IT AT NIGHT BUT HE WILL TAKE IT IN THE MORNING. NO C/O PAIN OR N/V. SLEEPING THROUGH THE NIGHT. CALL LIGHT WITHIN REACH. WILL CONTINUE TO MONITOR.
[2019-12-05 05:04] LABS: ALBUMIN 2.4 g/dL (3.4-5.0); CALCIUM 7.7 mg/dL (8.5-10.1); POTASSIUM 3.6 mmol/L (3.5-5.1); TOTAL BILIRUBIN 0.6 mg/dL (<0.1-1.0)
[2019-12-05 07:25] VITALS: BP 115/72
[2019-12-05] MEDS ORDERED: PROTONIX40 M2 PO (08:09)
[2019-12-05] MEDS ORDERED: B12 ACTIVE1000 MCG PO (08:09)
[2019-12-05] MEDS ORDERED: FOLIC ACID1 MG PO (08:09)
[2019-12-05 08:50] VITALS: BP 115/72
--- NOTE | 2019-12-05 08:53 | NUR ---
CM SPOKE TO THE PT AND HIS DTR O DISCUSS DISCHARGE PLANNING NEEDS. PT'S AND DTR RE-CONFIRM ACCEPTANCE OF HH WITH [facility]. NO OTHER NEEDS IDENTIFIED. CM CALLED AND FAXED [facility] PT'S D/C ODERS. PT TO D/C HOME TODAY WITH TRANSPORT PROVIDED BY FAMILY. CM WILL REMAIN AVAILABLE TO ASSIST AND FOLLOW NEEDED.
[2019-12-05 09:23] VITALS: BP 115/72
--- NOTE | 2019-12-05 10:46 | NUR ---
Pt discharged in stable condition. Discharge instructions given to patient and family. Prescriptions e-scripted to preferred pharmacy. Pt and daughter voiced no concerns, all questions answered. Belongings returned to patient and IV removed.
== END 2019-12-05 11:15 | disposition home health service (06) | DRG 371 ==
LOC: M.ERS 22:03 → M.ORTHSURG 23:53 → M.TBA-ER 23:53 → M.ORTHSURG 12-02 01:31
PROVIDERS: Emergency Medicine; Internal Medicine; ADMIT Internal Medicine; ATTEND Internal Medicine
DX: A04.9 Bacterial intestinal infection, unspecified (principal); N17.0 Acute kidney failure with tubular necrosis; R65.11 Systemic inflammatory response syndrome (SIRS) of non-infectious origin with acute organ dysfunction; I50.22 Chronic systolic (congestive) heart failure; I13.0 Hypertensive heart and chronic kidney disease with heart failure and stage 1 through stage 4 chronic kidney disease, or unspecified chronic kidney disease; I25.10 Atherosclerotic heart disease of native coronary artery without angina pectoris; I48.91 Unspecified atrial fibrillation; F03.90 Unspecified dementia, unspecified severity, without behavioral disturbance, psychotic disturbance, mood disturbance, and anxiety; K29.70 Gastritis, unspecified, without bleeding; D64.89 Other specified anemias; I49.5 Sick sinus syndrome; E03.9 Hypothyroidism, unspecified; E11.22 Type 2 diabetes mellitus with diabetic chronic kidney disease; D53.9 Nutritional anemia, unspecified; Z20.828 Contact with and (suspected) exposure to other viral communicable diseases; N18.9 Chronic kidney disease, unspecified; Z95.1 Presence of aortocoronary bypass graft; Z79.01 Long term (current) use of anticoagulants; I25.2 Old myocardial infarction; Z95.0 Presence of cardiac pacemaker

== ENCOUNTER 2019-12-08 21:36 | Inpatient (IN) | payer MEDICARE ==
[~2019-12-08] VITALS: Ht 172.7 cm; Wt 63.5 kg
[~2019-12-08 21:36] MED LIST changes: +B12 ACTIVE1000 MCG PO; +FOLIC ACID1 MG PO; +MIRTAZAPINE7.5 MG PO; +PROTONIX40 M2 PO; +ZOFRAN4 MG PO
[2019-12-08 21:49] VITALS: BP 91/66
[2019-12-08 22:31] LABS: ABSOLUTE BASOPHILS 0.1 thou/uL (0.0-0.2); ABSOLUTE EOSINOPHILS 0.1 thou/uL (0.0-0.7); ABSOLUTE LYMPHOCYTES 1.1 thou/uL (0.8-5.3); ABSOLUTE MONOCYTES 0.7 thou/uL (0.0-1.2); ABSOLUTE NEUTROPHILS 9.2 thou/uL (1.6-8.1); BASOPHILS 0.6 %; EOSINOPHILS 0.7 %; HEMATOCRIT 29.3 % (42.0-52.0); LYMPHOCYTES 9.6 %; MCH 31.9 pg (26.0-34.0); MCV 93.6 fL (80.0-100.0); MONOCYTES 6.3 %; MPV 10.3 fl. (7.2-11.1); NUCLEATED RBCS 0 /100WBC; PLATELET COUNT* 248 thou/uL (150-400); POLYS 82.8 %; RBC 3.13 mil/uL (4.50-6.00); RDW-CV 12.9 % (10.5-14.5); WBC 11.1 thou/uL (4.0-11.0)
[2019-12-08 22:38] LABS: CALCIUM 8.6 mg/dL (8.5-10.1); CREATININE 1.4 mg/dL (0.6-1.3); POTASSIUM 4.6 mmol/L (3.5-5.1); PROTIME 18.4 Seconds (9.20-11.50)
[2019-12-08 22:39] LABS: INR 1.8
[2019-12-08 22:42] LABS: ALBUMIN 3.5 g/dL (3.4-5.0); MAGNESIUM 1.8 mg/dL (1.8-2.4); TOTAL BILIRUBIN 0.5 mg/dL (<0.1-1.0); TOTAL PROTEIN 6.8 g/dL (6.4-8.2)
[2019-12-09] VITALS (7 sets, daily range): BP systolic 96–110; BP diastolic 50–70
--- NOTE | 2019-12-09 04:25 | NUR ---
ASSUMED CARE OF PT AT 0010 FROM THE ER. PT IS ALERT AND ORIENTED. VSS. PERRLA. NO COMPLAINTS OF PAIN. NO LOOSE STOOLS SO FAR THIS SHIFT. PT IS IN A FLUTTER ON THE TELEMETRY. PT IS RESTING COMFORTABLY IN BED. RESPIRATIONS ARE EVEN AND NONLABORED. WILL CONTINUE TO MONITOR PT.
--- NOTE | 2019-12-09 09:43 | EKG ---
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1930 Requested By: Ilene Beltran Order Number: [id number] MD: Steven Mcgraw Measurements Intervals [place] Rate: 73 P: [place]: QRS: -58 QRSD: 157 T: 112 QT: 407 QTc: 449 Interpretive Statements Afib/flutter and ventricular-paced rhythm No further analysis attempted due to paced rhythm Compared to ECG 12/01/2019 22:44:05 No significant changes Electronically Signed On 12-09-2019 9:43:05 CDT by Steven Mcgraw [email or web address] <ELECTRONICALLY SIGNED> By: Steven Mcgraw MD, FACC 12/09/19 0943 2224 2224 Steven Mcgraw MD, FACC /EPI
[2019-12-09 12:38] LABS: URINE BILIRUBIN NEGATIVE (Negative); URINE BLOOD NEGATIVE (Negative); URINE CLARITY CLEAR; URINE COLOR YELLOW; URINE GLUCOSE-RANDOM NEGATIVE (Negative); URINE KETONES NEGATIVE (Negative); URINE LEUKOCYTES-REFLEX NEGATIVE (Negative); URINE NITRITE-REFLEX NEGATIVE (Negative); URINE PROTEIN NEGATIVE (Negative); URINE SPECIFIC GRAVITY >= 1.030 (1.005-1.030); URINE UROBILINOGEN 0.2 E.U./dl (0.2-1.0)
--- NOTE | 2019-12-09 12:59 | NUR ---
CM spoke with Pt's via phone. Pt is A&O. Pt recently dc to home from the hospital on 12/04 with [facility], plans to resume at dc. Pt is on cdiff precautions. Pt uses a cane for mobility. No hx of SNF. Cardiology workup pending. CM to fax resumption orders to [facility] at [facility]. [facility] p:[phone] f:[phone]
--- NOTE | 2019-12-09 16:49 | NUR ---
PT HAD STRESS TEST TODAY. REPORTED JAW PAIN WICH RESOLVED PRIOR TO NITRO ORDER WAS RECEIVED. REMAINS ON CONTACT PRECAUTIONS. NO STOOL TODAY.
--- NOTE | 2019-12-09 17:21 | CARDNUC ---
[place] [address] CARDIAC NUCLEAR IMAGING REPORT Name: ANGELICA HOANG Room: [address] IN [facility]#: [id number] Admission: 12/08/19 Attend Phys: Ban Toledo, Discharge: Date of : 32 Date of Service: 12/09/19 1721 Report #: [id number] THIS REPORT FOR: cc: FAM - Family physician unknown FAM - Family physician unknown Steven Mcgraw MD [facility] ~ APPROVED REPORT Study performed: 12/09/2019 13:29:27 Exam: Nuclear Stress Test Indication: elevated troponins, syncope. Patient Location: In-Patient Room #: 209 Stress Tech: Jenna Hernandez Stress Nurse: Erika Longo Ht: 5 ft 8 in Wt: 142 lbs BSA: 1.77 m2 BMI: 21.58 Medical History Medical History: Elevated Troponins, Ischemic cardiomyopathy, EF 30%, syncope, diarrhea, weakness, SSS, Dementia, Hypotension, HTN, HLD, NSTEMI, CAD s/p CABG, past smoker, DM, Hypothyroidism, CHF, Atrial Fibrillation, Pacemaker. Medications: Atorvastatin, Hydralazine. Allergies: No known drug allergies Cardiac Risk Factors: Age, DM, FHX of CAD, HTN, Hyperlipidemia, Past Smoker, Pacemaker, AFib, elevated troponins, ischemic cardiomyopathy, CHF. Previous Cardiac Procedures: CABG, Myocardial infarction, Pacemaker. Pretest Chest Pain Characteristics: No chest pain Exercise History: Sedentary Physical Disabilities: Weakness/Fatigue, Pacemaker, AFib, elevated troponins, syncope. Meds Held (24 hrs): None Stress Test Details Stress Test: Pharmacologic stress testing performed using 0.4 mg of regadenoson per 5 mL given IV over 10 seconds. Reason for pharmacologic stress test: Weakness/Fatigue, Pacemaker, AFib, elevated troponins[place] [address] CARDIAC NUCLEAR IMAGING REPORT Name: ANGELICA HOANG Room: [address]#: [id number] Admission: 12/08/19 Attend Phys: Ban Toledo, Discharge: Date of : 32 Date of Service: 12/09/19 1721 Report #: [id number] Resting HR: 89 bpm Max Heart Rate (APMHR): 132 bpm Max HR Achieved: 141 bpm Target HR (85% APMHR): 112 bpm % of APMHR: 106 Recovery HR: 111 bpm BP Resting BP: 109/67 mmHg Max BP: 89/52 mmHg ECG Resting ECG: Atrial fibrillation with nonspecific interventricular conduction delay and occasional ventricular pacing Stress ECG: Atrial fibrillation with nonspecific interventricular conduction delay and occasional ventricular pacing ST Change: None Recovery ECG: Atrial fibrillation with nonspecific interventricular conduction delay and occasional ventricular pacing Recovery ST Change: None Clinical Reason for Termination: Completed protocol Stress Symptoms: None verbalized by patient. Exercise duration: 00 min 00 sec Exercise capacity: 1.00 METs The patient tolerated Lexiscan infusion without significant symptoms. Nurse Comments An 89 year old male inpatient presented for a sitting Lexiscan r/t AFib, Syncope, Elevated troponins, weakness with an ICD. Test well tolerated. Recovery unremarkable with 60 mg IV caffeine pending possible further medical procedures. Patient was escorted by staff via wheelchair to [facility] for imaging. Patient was stable and stated he felt good at that time. Stress ECG Conclusion The baseline twelve-lead EKG shows atrial fibrillation with a nonspecific interventricular conduction delay and intermittent ventricular pacing. EKGs obtained during and post Lexiscan infusion show atrial fibrillation with out significant ST segment changes. There is intermittent ventricular pacing noted. NM EXAM: Myocardial Perfusion REST/STRESS Imaging Protocol: Rest Tc-99m/Stress Tc-99m 1 [place] [address] CARDIAC NUCLEAR IMAGING REPORT Name: ANGELICA HOANG Room: [address] IN ..#: [id number] Admission: 12/08/19 Attend Phys: Ban Toledo, Discharge: Date of : 31 Date of Service: 12/09/19 1721 Report #: [id number] Rest SPECT myocardial perfusion imaging was performed in supine position 30 minutes following the intravenous injection of 11.6 mCi of Tc-99m Sestamibi. Time of rest injection: 11:40 The images were gated to evaluate regional wall motion and calculate left ventricular ejection fraction. Administration Route: IV Administration Site: Right Arm Pharmacologic Stress Pharmacologic stress test was performed by injecting Regadenoson 0.4 mg IV push followed by the intravenous injection of 33.2 mCi of Tc-99m Sestamibi. Time of stress injection: 13:15 Administration Route: IV Administration Site: Right Arm Heart Rate at time of stress injection: 141 bpm. Gated Stress SPECT was performed 40 minutes after stress injection. The images were gated to evaluate regional wall motion and calculate left ventricular ejection fraction. Study Quality Study: Good Artifact: No artifact Study Data At rest, the left ventricular ejection fraction was 20%.. Post stress, the left ventricular ejection was 15%.. TID = 1.02. Perfusion Perfusion images show evidence of stress-induced ischemia involving the mid to distal lateral wall. There is a focal fixed defect of the distal inferior wall consistent with infarct. Wall Motion There is global hypokinesis. The ventricle appears dilated. Nuclear Conclusion ECG Findings: non-diagnostic Clinical Findings: negative for ischemia Nuclear Findings: positive for ischemia Exercise Capacity: not assessed Left Ventricular Function: abnormal Risk Study: [place] [address] CARDIAC NUCLEAR IMAGING REPORT Name: ANGELICA HOANG Room: [address]#: [id number] Admission: 12/08/19 Attend Phys: Ban Toledo, Discharge: Date of : 31 Date of Service: 12/09/19 1721 Report #: [id number] Perfusion studies suggest findings consistent with an ischemic cardiomyopathy. There is evidence of prior distal inferior wall infarct as well as stress-induced ischemia of the lateral wall. LV systolic function is severely decreased with global hypokinesis. This is a high risk study. <Conclusion> The baseline twelve-lead EKG shows atrial fibrillation with a nonspecific interventricular conduction delay and intermittent ventricular pacing. EKGs obtained during and post Lexiscan infusion show atrial fibrillation with out significant ST segment changes. There is intermittent ventricular pacing noted. <ELECTRONICALLY SIGNED> By: Steven Mcgraw MD, FACC 12/09/191720 20 20 Steven Mcgraw MD, FACC /INF
[2019-12-10] VITALS (8 sets, daily range): BP systolic 108–130; BP diastolic 52–77
[2019-12-10 03:42] LABS: ABSOLUTE EOSINOPHILS 0.1 thou/uL (0.0-0.7); ABSOLUTE LYMPHOCYTES 1.3 thou/uL (0.8-5.3); ABSOLUTE MONOCYTES 1.1 thou/uL (0.0-1.2); ABSOLUTE NEUTROPHILS 8.8 thou/uL (1.6-8.1); BASOPHILS 0.3 %; EOSINOPHILS 0.8 %; HEMATOCRIT 26.6 % (42.0-52.0); HEMOGLOBIN 9.1 gm/dL (14.0-18.0); LYMPHOCYTES 11.8 %; MCH 31.9 pg (26.0-34.0); MCHC 34.1 g/dL (28.0-37.0); MCV 93.5 fL (80.0-100.0); MONOCYTES 9.5 %; MPV 10.3 fl. (7.2-11.1); NUCLEATED RBCS 0 /100WBC; PLATELET COUNT* 222 thou/uL (150-400); POLYS 77.6 %; RBC 2.85 mil/uL (4.50-6.00); RDW-CV 12.7 % (10.5-14.5); WBC 11.4 thou/uL (4.0-11.0)
[2019-12-10 03:58] LABS: CALCIUM 8.5 mg/dL (8.5-10.1); CREATININE 1.2 mg/dL (0.6-1.3)
--- NOTE | 2019-12-10 04:27 | NUR ---
ASSUMED CARE OF PT AT 1900. PT IS ALERT AND ORIENTED. VSS. PERRLA. NO COMPLAINTS OF PAIN. PT IS UP WITH A WALKER AND 1 ASSIST. PT IS IN AFIB ON THE TELEMETRY. PT IS RESTING COMFORTABLY IN BED. RESPIRATIONS ARE EVEN AND NONLABORED. WILL CONTINUE TO MONITOR PT.
[2019-12-10] MEDS ORDERED: METFORMIN HCL500 M3 PO (12:20)
[2019-12-10] MEDS ORDERED: GLIPIZIDE 10 MG10 MG PO (12:20)
--- NOTE | 2019-12-10 13:06 | NUR ---
CM spoke with dtr today, dtr wants Pt to have a SW orderd through HH to explore private duty options. [facility]
--- NOTE | 2019-12-10 15:51 | NUR ---
ASSUMED CARE OF PT AROUND 0730 THIS AM. REFER TO ASSESSENT. CARDIOLOGY OK FOR DC HOME. CARDIOLOGY WITH NEW MEDICATION ORDERS FOR HEART RATE CONTROL THIS SHIFT. PT'S RATE WELL CONTROLLED. ANTICIPATE DC HOME TOMORROW. PT STATES HE FEELS TIRED/WEAK TODAY. ENCOURAGED TO GET UP OOB FOR MEALS AND AMBULATED AROUND HIS ROOM WITH ASSIST X1, GAIT BELT, AND WALKER. PT TOLERATED WELL. NO OTHER CONCERNS AT THIS TIME. CLWR. WCTM.
[2019-12-11] VITALS (8 sets, daily range): BP systolic 108–135; BP diastolic 52–81
[2019-12-11 04:24] LABS: BASOPHILS 0.4 %; HEMOGLOBIN 9.1 gm/dL (14.0-18.0); MPV 10.6 fl. (7.2-11.1); NUCLEATED RBCS 0 /100WBC
[2019-12-11 04:26] LABS: ABSOLUTE BASOPHILS 0.1 thou/uL (0.0-0.2); ABSOLUTE MONOCYTES 1.1 thou/uL (0.0-1.2); ABSOLUTE NEUTROPHILS 10.6 thou/uL (1.6-8.1); EOSINOPHILS 0.1 %; HEMATOCRIT 26.7 % (42.0-52.0); LYMPHOCYTES 7.7 %; MCH 31.7 pg (26.0-34.0); PLATELET COUNT* 208 thou/uL (150-400); POLYS 82.8 %; RBC 2.88 mil/uL (4.50-6.00); RDW-CV 12.5 % (10.5-14.5); WBC 12.8 thou/uL (4.0-11.0)
[2019-12-11 04:40] LABS: ALBUMIN 2.8 g/dL (3.4-5.0); CALCIUM 8.2 mg/dL (8.5-10.1); CREATININE 1.4 mg/dL (0.6-1.3); POTASSIUM 4.4 mmol/L (3.5-5.1); TOTAL BILIRUBIN 0.9 mg/dL (<0.1-1.0); TOTAL PROTEIN 5.7 g/dL (6.4-8.2)
--- NOTE | 2019-12-11 05:09 | NUR ---
PT CARE ASSUMED AT 1930. SAT MAINTAINED IN RA. ALERT AND ORIENTED X4. CALL LIGHT WITHIN REACH AND BED IN LOW POSITION. HOURLY ROUNDING DONE FOR PT SAFETY.
--- NOTE | 2019-12-11 13:53 | NUR ---
Anticipate dc to home tomorrow with [facility] HH, updated HH
--- NOTE | 2019-12-11 14:38 | NUR ---
ASSUMED CARE OF PT AROUND 0730 THIS AM. REFER TO ASSESSMENT. PT NOTED TO BE SOA. SATS MAINTAINED ON RA, BUT PT AND DAUGHTER REQUESTED TO BE PUT ON OXYGEN. PT PLACED ON 2L/NC FOR COMFORT. CARDIOLOGY AT BEDSIDE AND NEW ORDERS OBTAINED FOR IV LASIX. MEDICATION ADMINISTERED AND PT REPORTED DECREASE SHORTNESS OF AIR THIS AFTERNOON AND OXYGEN REMOVED. PT ENCOURAGED TO BE UP OOB WITH ALL MEALS. AMBULATING IN ROOM WITH WALKER, GAIT BELT AND ASSIST X1. ANTICIPATE DC HOME TOMORROW. NO OTHER CONCERNS AT THIS TIME. CLWR. WCTM.
[2019-12-12] VITALS (7 sets, daily range): BP systolic 99–130; BP diastolic 52–74
--- NOTE | 2019-12-12 04:53 | NUR ---
PT CARE ASSUMED AT 1930. SAT MAINTAINED IN RA BUT PT C/O SOB AT REST, CONNECTED ON 2L NC FOR COMFORT. C/O PAIN, MEDICATION GIVEN PER EMAR. CALL LIGHT WITHIN REACH AND BED IN LOW POSITION. HOURLY ROUNDING DONE FOR PT SAFETY.
[2019-12-12 05:06] LABS: ABSOLUTE BASOPHILS 0.1 thou/uL (0.0-0.2); ABSOLUTE LYMPHOCYTES 1.4 thou/uL (0.8-5.3); ABSOLUTE MONOCYTES 0.9 thou/uL (0.0-1.2); BASOPHILS 0.7 %; EOSINOPHILS 0.2 %; HEMATOCRIT 26.4 % (42.0-52.0); HEMOGLOBIN 9.1 gm/dL (14.0-18.0); LYMPHOCYTES 10.4 %; MCH 31.8 pg (26.0-34.0); MCHC 34.4 g/dL (28.0-37.0); MCV 92.3 fL (80.0-100.0); MPV 10.9 fl. (7.2-11.1); NUCLEATED RBCS 0 /100WBC; PLATELET COUNT* 241 thou/uL (150-400); POLYS 81.7 %; RBC 2.86 mil/uL (4.50-6.00); WBC 13.4 thou/uL (4.0-11.0)
[2019-12-12 05:23] LABS: ALBUMIN 2.8 g/dL (3.4-5.0); CALCIUM 8.2 mg/dL (8.5-10.1); CREATININE 1.3 mg/dL (0.6-1.3); POTASSIUM 4.4 mmol/L (3.5-5.1); TOTAL BILIRUBIN 0.9 mg/dL (<0.1-1.0); TOTAL PROTEIN 5.9 g/dL (6.4-8.2)
[2019-12-12] MEDS ORDERED: TOPROL XL50 MG PO (10:23)
[2019-12-12] MEDS ORDERED: RANEXA500 MG PO (10:23)
[2019-12-12] MEDS ORDERED: IMDUR 30 MG TAB30 M1 PO (10:23)
--- NOTE | 2019-12-12 14:13 | NUR ---
PT A&OX4, VSS. PT ACCUCHECK, INSULIN ADMINISTERED INDICATED. IV TO RFA DC'D PRIOR TO LEAVING UNIT. PT AND DGTR STATE UNDERSTANDING OF DC INSTRUCTIONS AND RX PROVIDED. F/U INFO PROVIDED AT DC. PT HOME W/HH, CONTACT INFO INCLUDED IN DC PAPERWORK. PT LEAVES UNIT IN WC TRANSPORTED BY NURSING STAFF, ACCOMPANIED BY DGTR.
== END 2019-12-12 13:45 | disposition home health service (06) | DRG 280 ==
LOC: M.ERS 21:36 → M.2W 23:04 → M.TBA-ER 23:04 → M.2W 23:04
PROVIDERS: Emergency Medicine; Internal Medicine; ADMIT Internal Medicine; ATTEND Internal Medicine
DX: I21.4 Non-ST elevation (NSTEMI) myocardial infarction (principal); E43 Unspecified severe protein-calorie malnutrition; I50.43 Acute on chronic combined systolic (congestive) and diastolic (congestive) heart failure; N17.9 Acute kidney failure, unspecified; I13.0 Hypertensive heart and chronic kidney disease with heart failure and stage 1 through stage 4 chronic kidney disease, or unspecified chronic kidney disease; I48.20 Chronic atrial fibrillation, unspecified; I25.10 Atherosclerotic heart disease of native coronary artery without angina pectoris; I25.5 Ischemic cardiomyopathy; K52.9 Noninfective gastroenteritis and colitis, unspecified; F03.90 Unspecified dementia, unspecified severity, without behavioral disturbance, psychotic disturbance, mood disturbance, and anxiety; E11.22 Type 2 diabetes mellitus with diabetic chronic kidney disease; N18.9 Chronic kidney disease, unspecified; J44.9 Chronic obstructive pulmonary disease, unspecified; E03.9 Hypothyroidism, unspecified; I49.5 Sick sinus syndrome; Z95.1 Presence of aortocoronary bypass graft; Z79.01 Long term (current) use of anticoagulants; Z95.0 Presence of cardiac pacemaker; Z68.21 Body mass index [BMI] 21.0-21.9, adult

== ENCOUNTER 2019-12-13 11:02 | Inpatient (IN) | payer MEDICARE ==
[~2019-12-13] VITALS: Ht 167.6 cm; Wt 65.8 kg
[~2019-12-13 11:02] MED LIST changes: +IMDUR 30 MG TAB30 M1 PO; +METFORMIN HCL500 M3 PO
[2019-12-13 11:03] VITALS: BP 119/68
[2019-12-13 12:07] LABS: ABSOLUTE LYMPHOCYTES 1.2 thou/uL (0.8-5.3); ABSOLUTE MONOCYTES 0.9 thou/uL (0.0-1.2); ABSOLUTE NEUTROPHILS 10.1 thou/uL (1.6-8.1); BASOPHILS 0.4 %; EOSINOPHILS 0.2 %; HEMATOCRIT 30.1 % (42.0-52.0); HEMOGLOBIN 10.2 gm/dL (14.0-18.0); LYMPHOCYTES 9.5 %; MCH 31.6 pg (26.0-34.0); MCHC 33.9 g/dL (28.0-37.0); MCV 93.3 fL (80.0-100.0); MONOCYTES 7.5 %; MPV 10.6 fl. (7.2-11.1); NUCLEATED RBCS 0 /100WBC; PLATELET COUNT* 288 thou/uL (150-400); POLYS 82.4 %; RBC 3.23 mil/uL (4.50-6.00); RDW-CV 12.8 % (10.5-14.5); WBC 12.2 thou/uL (4.0-11.0)
[2019-12-13 12:13] LABS: CALCIUM 8.7 mg/dL (8.5-10.1); CREATININE 1.6 mg/dL (0.6-1.3)
[2019-12-13 12:18] LABS: ALBUMIN 3.1 g/dL (3.4-5.0); TOTAL BILIRUBIN 0.9 mg/dL (<0.1-1.0); TOTAL PROTEIN 6.4 g/dL (6.4-8.2)
[2019-12-13 15:17] LABS: BE -2.3 mmol/L (-2 to +3); pH 7.431 (7.340-7.450)
[2019-12-13 15:20] LABS: PO2 58.9 mmHg (75.0-100.0)
[2019-12-13 16:30] VITALS: BP 129/69
[2019-12-13 17:00] VITALS: BP 106/84
--- NOTE | 2019-12-13 19:22 | NUR ---
RECEIVED REPORT FROM ER, PT. ADMIT TO ROOM 228. PT ABLE TO AMBULATE FROM CART TO BED. DAUGHTER AT BEDSIDE. PT A/OX4, BP STABLE, HEART RATE ELVATED UP TO 150'S AT TIMES, EKG OBTAINED AND DR. MACIEL NOTIFIED. CARDIZEM GTT INITIATED. FULL ASSESSMENT AND ADMISSION PROCESS COMPLETED, REFER TO CHARTING. FALL PRECAUTIONS IN PLACE.
[2019-12-13 20:25] VITALS: BP 92/75
[2019-12-14] VITALS: BP 101/69
[2019-12-14 04:00] VITALS: BP 98/62
[2019-12-14 05:05] LABS: HEMATOCRIT 26.4 % (42.0-52.0); HEMOGLOBIN 9.1 gm/dL (14.0-18.0); MCH 31.8 pg (26.0-34.0); MCHC 34.4 g/dL (28.0-37.0); MCV 92.5 fL (80.0-100.0); MPV 10.2 fl. (7.2-11.1); RBC 2.85 mil/uL (4.50-6.00); RDW-CV 13.5 % (10.5-14.5); WBC 10.4 thou/uL (4.0-11.0)
[2019-12-14 05:33] LABS: ALBUMIN 2.8 g/dL (3.4-5.0); CALCIUM 8.4 mg/dL (8.5-10.1); CREATININE 1.4 mg/dL (0.6-1.3); POTASSIUM 4.6 mmol/L (3.5-5.1); TOTAL BILIRUBIN 0.6 mg/dL (<0.1-1.0); TOTAL PROTEIN 5.1 g/dL (6.4-8.2)
--- NOTE | 2019-12-14 05:36 | NUR ---
NO ACUTE CHANGES THROUGHOUT SHIFT. VITAL SIGNS STABILIZED. ALL ROUNDINGS COMPLETED, ALL NEEDS MET, FULL ASSESSMENT COMPLETED CHARTED. CALL LIGHT AND PERSONAL ITEMS IN REACH.
[2019-12-14 08:30] VITALS: BP 103/78
[2019-12-14 14:51] VITALS: BP 91/55
[2019-12-14 18:48] VITALS: BP 116/53
[2019-12-15 00:39] VITALS: BP 102/69
[2019-12-15 04:00] VITALS: BP 105/75
--- NOTE | 2019-12-15 05:34 | NUR ---
Assumed pt care at 1999. Pt tracing afib with a rate of 130's on tele. Pt diltiazem drip restarted. BP rechecked/monitor. Around 0400, Pt HR controlled -Afib 8O's. Pt O2 sat dropping to 87% pt back to 2L NC. Hourly rounding, call light within reach, will continue to monitor.
[2019-12-15 08:00] VITALS: BP 100/66
[2019-12-15 12:00] VITALS: BP 94/56
--- NOTE | 2019-12-15 15:17 | EKG ---
[place] [address] ELECTROCARDIOGRAM REPORT Name: ANGELICA HOANG Room: [address] ADM IN M.R.#: [id number] Admission: 12/13/19 Attend Phys: George Dash Discharge: Date of : 31 Date of Service: 12/13/19 1107 Report #: [id number] THIS REPORT FOR: //name// [facility] ED Test Date: 2019-12-13 Test Time: 11:07:04 Pat Name: ANGELICA HOANG Department: Room: [address] Gender: M Ob Scrub Tech: CCD : 1930 Requested By: George Dash Order Number: [id number] Juan C MD: Sushant Parikh Measurements Intervals [place] Rate: 113 P: DE: QRS: -49 QRSD: 145 T: 122 QT: 336 QTc: 461 Interpretive Statements Afib/flut and V-paced complexes No further rhythm analysis attempted due to paced rhythm LBBB Compared to ECG 12/08/2019 22:24:52 intrinsic R waves now noted Electronically Signed On 12-15-2019 15:17:32 CDT by Sushant Parikh [email or web address] <ELECTRONICALLY SIGNED> By: Sushant Parikh MD, FACC 12/15/19 1517 1107 1107 Sushant Parikh MD, [facility] /EPI
--- NOTE | 2019-12-15 15:20 | EKG ---
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: mikael : 1930 Requested By: George Dash Order Number: [id number] Juan C MD: Sushant Parikh Measurements Intervals [place] Rate: 136 P: 51 RI: 190 QRS: -51 QRSD: 138 T: 127 QT: 317 QTc: 477 Interpretive Statements Ventricular-paced complexes atrial fibrillation LBBB Compared to ECG 12/13/2019 11:07:04 rate has increased Electronically Signed On 12-15-2019 15:20:03 CDT by Sushant Parikh [email or web address] <ELECTRONICALLY SIGNED> By: Sushant Parikh MD, [facility] 12/15/19 1520 1836 1836 Sushant Parikh MD, [facility] /EPI
[2019-12-15 16:08] VITALS: BP 100/60
--- NOTE | 2019-12-15 16:23 | 2DMMODE ---
[place] [address] 2 D/M-MODE ECHOCARDIOGRAM Name: ANGELICA HOANG Room: [address] IN [place]#: [id number] Admission: 12/13/19 Attend Phys: George Dash Discharge: Date of : 31 Date of Service: 12/15/19 1623 Report #: [id number] THIS REPORT FOR: cc: FAM - Family physician unknown FAM - No family physician/PCP Sushant Parikh MD [facility] ~ APPROVED REPORT Study performed: 12/15/2019 15:09:11 EXAM: Comprehensive 2D, Doppler, and color-flow Echocardiogram Patient Location: In-Patient Room #: [facility] Status: routine BSA: 1.71 HR: 65 bpm BP: 94/56 mmHg Rhythm: NSR Other Information Study Quality: Good Indications CAD 2D Dimensions IVSd: 10.06 (7-11mm) LVOT Diam: 20.33 (18-24mm) LVDd: 61.39 mm PWd: 8.88 (7-11mm) Ascending Ao: 38.42 (22-36mm) LVDs: 45.20 (25-40mm) Aortic Root: 34.67 mm Volumes Left Atrial Volume (Systole) LA ESV Index: 59.70 mL/m2 Aortic Valve AoV Peak Jorge.: 1.58 m/s AO Peak Gr.: 9.94 mmHg LVOT Max P.92 mmHg AO Mean Gr.: 5.72 mmHg LVOT Mean P.86 mmHg LVOT Max V: 0.69 m/s AO V2 VTI: 25.87 cm LVOT Mean V: 0.42 m/s JAMEY (VTI): 1.52 cm2 LVOT V1 VTI: 12.08 [place] [address] 2 D/M-MODE ECHOCARDIOGRAM Name: ANGELICA HOANG Room: [address] IN [facility]#: [id number] Admission: 12/13/19 Attend Phys: George Dash Discharge: Date of : 31 Date of Service: 12/15/19 1623 Report #: [id number] Mitral Valve MV Decel. Time: 111.22 ms MV PHT: 32.25 ms MVA (PHT): 6.82 cm2 TDI Medial E' Jorge.: 0.08 m/s Lateral E' Jorge.: 0.07 m/s Pulmonary Valve PV Peak Jorge.: 1.01 m/s PV Peak Gr.: 4.12 mmHg Tricuspid Valve RAP Estimate: 5.00 mmHg TR Peak Gr.: 34.04 mmHg RVSP: 39.00 mmHg PA Pressure: 39.00 mmHg Left Ventricle Left ventricle is mildly dilated. akinesis noted of the mid and distal anterior wall and apex There is normal left ventricular wall thickness. Left ventricular systolic function is severely decreased. LVEF is 25-30%. This study is not technically sufficient to allow evaluation of the LV diastolic function. Right Ventricle The right ventricle is normal size. The right ventricular systolic function is normal. Pacemaker lead is present in the right ventricle. Atria Left atrium is mildly dilated. The right atrium size is normal. Aortic Valve Mild aortic valve sclerosis. Trace aortic regurgitation. Mild aortic stenosis. Mitral Valve The mitral valve is normal in structure. Mild mitral regurgitation. No evidence of mitral valve stenosis. Tricuspid Valve The tricuspid valve is normal in structure. Mild tricuspid regurgitation. estimated pa pressure 45 mm Hg Pulmonic Valve The pulmonary valve is normal in [place] [address] 2 D/M-MODE ECHOCARDIOGRAM Name: ANGELICA HOANG Room: [address] IN [facility]#: [id number] Admission: 12/13/19 Attend Phys: George Dash Discharge: Date of : 31 Date of Service: 12/15/19 1623 Report #: [id number] regurgitation. Great Vessels The aortic root is normal in size. IVC is normal in size and collapses >50% with inspiration. Pericardium There is no pericardial effusion. Left pleural effusion. <Conclusion> Left ventricle is mildly dilated. LVEF is 25-30%. Left atrium is mildly dilated. Mild aortic valve sclerosis. Mild mitral regurgitation. Mild tricuspid regurgitation. estimated pa pressure 45 mm Hg <ELECTRONICALLY SIGNED> By: Sushant Parikh MD, [facility] 12/15/19 1623 1623 1623 Sushant Parikh MD, FACC /INF
--- NOTE | 2019-12-15 16:36 | CON ---
[address] [address] CONSULTATION Name: ANGELICA HOANG Room: [address] IN .R.#: [id number] Admission: 12/13/19 Attend Phys: Doreen Caban Discharge: Date of : 31 Report #: [id number] THIS REPORT FOR: //name// cc: VANESSA - Family physician unknown FAM - No family physician/PCP ~ THIS REPORT FOR: //name// CC: VANESSA physician/PCP FAM unknown George Dash CARDIOLOGY CONSULTATION INDICATION: Shortness of breath, consistent with acute combined heart failure. HISTORY OF PRESENT ILLNESS: The patient is a very pleasant 89-year-old gentleman who is well known to myself. He has a history of ischemic cardiomyopathy with an ejection fraction of approximately 30-35%. He has a remote history of coronary artery bypass grafting. He has been having increasing orthopnea and paroxysmal nocturnal dyspnea for the past several days. The patient was admitted with increasing shortness of breath. He has also a history of chronic atrial fibrillation with occasionally rapid ventricular response rate. His heart rate has been somewhat fast here, but presently well controlled. He denies any chest pain, tightness or pressure. He is having shortness of breath, dyspnea on exertion, and orthopnea. PAST MEDICAL HISTORY: 1. Coronary artery disease. 2. Ischemic cardiomyopathy. 3. Paroxysmal atrial fibrillation. 4. ICD in place. ALLERGIES: None documented. HOME MEDICATIONS: Atorvastatin 80 mg daily, digoxin 0.125 mg daily, Aricept 10 mg daily, folate 1 mg daily, glipizide 2.5 mg daily, Imdur 30 mg daily, levothyroxine 75 mcg daily, B12 1000 mcg daily, metformin 500 mg b.i.d., Toprol-XL 50 mg b.i.d., mirtazapine 7.5 mg at bedtime, Nitrostat sublingual p.r.n., Zofran 4 mg every 8 hours p.r.n., Protonix 40 mg daily, ranolazine 500 mg b.i.d., Xarelto 20 mg daily. SOCIAL HISTORY: The patient denies use of tobacco or alcohol. PHYSICAL EXAMINATION: VITAL SIGNS: Stable. Heart rate presently in the 60s, blood pressure 100/66. GENERAL: This is a pleasant elderly gentleman who is in no acute distress. [place] [address] CONSULTATION Name: ANGELICA HOANG Room: [address]#: [id number] Admission: 12/13/19 Attend Phys: Doreen Caban Discharge: Date of : 31 Report #: [id number] HEENT: Extraocular muscles intact. Mucous membranes are moist. NECK: Shows jugular venous distention without carotid bruit. CHEST: Reveals diminished breath sounds without wheezes. CARDIOVASCULAR: Reveals an irregularly irregular rhythm that is rate controlled. I do not appreciate gallop or murmur. ABDOMEN: Reveals normal bowel sounds. The abdomen is soft, nontender. EXTREMITIES: Shows trace ankle edema. SKIN: Dry. LABORATORY DATA: Reviewed. Troponins minimally elevated at 0.27, 0.25 and 0.39. NT-proBNP elevated at 33,588. Chest x-ray shows cardiomegaly, atelectasis and mild infiltrates that could be edema. IMPRESSION AND RECOMMENDATIONS: 1. Acute on chronic combined heart failure. We will repeat echocardiogram at this time. I recommend Lasix 40 mg IV now and daily. We will follow up labs in a.m. 2. Coronary artery disease. Troponin is minimally elevated. I suspect this is due to acute heart failure. Doubt acute coronary syndrome at this time. 3. Dyslipidemia. Continue current statin agent. LDL cholesterol has been at goal on this dose. 4. Remote history of hypertension. Blood pressure low normal presently. We will follow. 5. Chronic atrial fibrillation, rate adequately controlled now on a combination of metoprolol, diltiazem and digoxin. Would continue as outlined above. 6. Chronic obstructive pulmonary disease, start breathing treatments every 6 hours. Supplemental oxygen as needed. <ELECTRONICALLY SIGNED> By: Steven Mcgraw MD, FACC 12/15/19 1636 1255 1316Micfoster Mcgraw MD, FACC /nt
--- NOTE | 2019-12-15 17:28 | NUR ---
ASSUMED PT CARE AT 0715 AM REPORT RECEIVED FROM NURSE. PT IS AOX4. FOUND ON 1 L NC. OXYGEN REMOVED. O2 SATURATION WAS 95% RA. THEN PT STRATED COMPLAINING OF SOB LATER IN THE AM. OXYGEN BUMPED UP TO 2 L NC. PT REMAINS SOB ON 2 L NC. O2 BUMPED UP TO 4 L NC. O2 SATURATION IS 94% ON 4 LNC. LASIX GIVEN ORDERED. PT IS NOW LESS SOB. DENIES PAIN. HEART RATE DECREASED TO 60S IN THE PM. CARDIZEM DRIP RATE DECREASED TO 10 CC PER HOUR AT 1730. FALL PRECAUTION IN PLACE. WILL CONTINUE TO MONITOR PT
--- NOTE | 2019-12-15 17:37 | NUR ---
SW met with pt dtr Belkis to introduce self and SW role and to complete initial reassessment as pt has had readmissions. Pt has been living at home with spouse and dtr Belkis. Pt dtr suggested SW call pt susan Nieves who is a SW at [facility] [phone] to discuss dc planning and resources. SW called and left a message. Pt is on 3 L oxygen, pt has a cane. Pt active with [facility] as was arranged at recent dc and no hx of SNF. Possible private duty was discussed but pt dtr was not certain of ability for pt to pay for private duty care or for LTC. Pt dtr wondered if pt might be able to receive hospital bed. SW discussed the possibility and will continue to follow to assist with safe dc planning.
[2019-12-15 20:05] VITALS: BP 114/58
[2019-12-16] VITALS: BP 109/50
[2019-12-16 04:00] VITALS: BP 118/64
[2019-12-16 05:22] LABS: CALCIUM 8.2 mg/dL (8.5-10.1); POTASSIUM 4.9 mmol/L (3.5-5.1)
--- NOTE | 2019-12-16 06:29 | NUR ---
NO ACUTE CHANGES THROUGHOUT SHIFT. VSS. DILTIAZEM AT 10 THROUGHOUT ENTIRE SHIFT. ALL ROUNDINGS COMPLETED, ALL NEEDS MET, FULL ASSESSMENT COMPLETED CHARTED.
--- NOTE | 2019-12-16 07:50 | NUR ---
ASSUMED CARE OF PATIENT THIS MORNING FROM NIGHT NURSE. PT IS DOING WELL WITH NO CO OF PAIN OR NAUSEA. HE WAS EDUCATED ON POC, DISEASE PROCESS, FALL SAFETY AND USING THE CALL LIGHT FOR ASSISTANCE. BED IN LOWEST POSITION AND CALL LIGHT IS IN REACH. WILL CONTINUE TO MONITOR.
[2019-12-16 08:00] VITALS: BP 102/66
[2019-12-16 12:11] VITALS: BP 88/51
[2019-12-16 16:34] VITALS: BP 80/47
--- NOTE | 2019-12-16 16:46 | NUR ---
GOMEZ spoke with pt granddtr Lizbeth at pt/family request [phone]. Pt doing well in therapies, doesn't qualify for hospital bed and not in need of inpt rehab or SNF. GOMEZ discussed this with Lizbeth who was understanding. Pt may need oxygen arranged at dc, Lizbeth clarified that pt does not actually have oxygen at home currently. Plan for home with family and HH current with [facility] when pt is ready to dc. SW to continue to follow to assist with safe dc plan.
[2019-12-16 19:40] VITALS: BP 89/54
[2019-12-17 00:05] VITALS: BP 101/54
[2019-12-17 04:00] VITALS: BP 110/62
[2019-12-17 05:58] LABS: CALCIUM 8.1 mg/dL (8.5-10.1); CREATININE 2.6 mg/dL (0.6-1.3); POTASSIUM 4.5 mmol/L (3.5-5.1)
--- NOTE | 2019-12-17 06:05 | NUR ---
NO ACUTE CHANGES THROUGHOUT SHIFT. VSS. ALL ROUNDINGS COMPLETED, ALL NEEDS MET, FULL ASSESSMENT COMPLETED CHARTED.
[2019-12-17 08:00] VITALS: BP 106/67
[2019-12-17 12:30] VITALS: BP 119/62
--- NOTE | 2019-12-17 12:30 | NUR ---
ASSUMED PT CARE REPORT RECEIVED FROM NURSE. PT IS AOX4. TRACING VPACED, BBB, AND OCCASIONALLY AFIB ON BAG LOADER. DENIES PAIN. PT ASSISTED OUT OF BED TO CHAIR POSITION BY THIS NURSE. ACCUCHECK. DOBUTAMINE DRIP INFUSING AT 19 CC PER HOUR. HEART RATE CONTROLLED. PT IS ON 2 L NC. DENIES SOB. O2 SATURATION 98% ON 2 L NC. PT IS UP WITH STAND BY ASSIST. EDEMA IN LOWER EXTR. CALL IGHT AT REACH. FALL PRECAUTION IN PLACE. WILL CONTINUE TO MONITOR
--- NOTE | 2019-12-17 15:16 | NUR ---
pt walked in hallway with this nurse. denies pain. pt ambualtes with 2 l nc of oxygen. no sob noted. pt bladder was scanned. retention of 510 cc of urine.
[2019-12-17 16:00] VITALS: BP 106/57
--- NOTE | 2019-12-17 17:03 | NUR ---
SW continuing to follow. Pt possible to dc home with family and HH tomorrow and possibly hospital bed after all due to pt COPD and need for head of bed elevated. GOMEZ spoke with pt jayleen Nieves again today and discussed pt didn't qualify for oxygen and she understood. SW to continue to follow to assist with safe dc planning.
--- NOTE | 2019-12-17 17:04 | NUR ---
STRAIGHT CATHETERIZATION ORDER RECEIVED FROM DR. MAY WAS STRAIGHT CATH. OUTPUT OF 700 CC RECEIVED. URINE COLLECTED
[2019-12-17 17:32] LABS: URINE BILIRUBIN NEGATIVE (Negative); URINE BLOOD NEGATIVE (Negative); URINE CLARITY CLEAR; URINE COLOR YELLOW; URINE GLUCOSE-RANDOM TRACE (Negative); URINE KETONES NEGATIVE (Negative); URINE LEUKOCYTES-REFLEX NEGATIVE (Negative); URINE NITRITE-REFLEX NEGATIVE (Negative); URINE PROTEIN NEGATIVE (Negative); URINE SPECIFIC GRAVITY >= 1.030 (1.005-1.030); URINE UROBILINOGEN 0.2 E.U./dl (0.2-1.0)
[2019-12-17 19:47] LABS: INR 1.2; PROTIME 12.6 Seconds (9.20-11.50)
[2019-12-17 20:50] VITALS: BP 133/69
[2019-12-18] VITALS (7 sets, daily range): BP systolic 100–113; BP diastolic 48–69
[2019-12-18 04:51] LABS: CALCIUM 8.1 mg/dL (8.5-10.1); CREATININE 1.9 mg/dL (0.6-1.3); POTASSIUM 4.5 mmol/L (3.5-5.1)
--- NOTE | 2019-12-18 06:28 | NUR ---
NO ACUTE CHANGES THROUGHOUT SHIFT. VSS. ALL ROUNDINGS COMPLETED, ALL NEEDS MET, FULL ASSESSMENT COMPLETED CHARTED. PT HAS BEEN NPO SINCE 0000 PER ORDERS.
[2019-12-18 10:16] LABS: BF LYMPHOCYTES 58 %; BF POLYS 42 %
[2019-12-18 10:17] LABS: BF RBC 452 /mm3; CLARITY CLEAR; SOURCE THORACENTESIS; TOTAL CELL COUNT 191 /mm3; TOTAL VOLUME 1560 ml
--- NOTE | 2019-12-18 11:57 | NUR ---
ASSUMED PT CARE. REPORT RECEIVED FROM NURSE. PT IS AOX4. ON 2 L NC. TRACING AFIB ON THE PARAFFIN PLANT OPERATOR. PT WENT FOR US THORACENTESIS AT 0930 AM . BLADDER WAS SCANNED AT 1150 AM. RETENTION OF 109 CC OF URINE PER BLADDER SCAN. PT HAD ALREADY URINATED THIS AM. PT ALSO HAD A BOWEL MOVEMENT THIS AM. DENIES PAIN. FALL PRECAUTION IN Mony ALMAGUER
[2019-12-19] VITALS: BP 121/55
[2019-12-19 03:53] VITALS: BP 115/52
[2019-12-19 05:24] LABS: CALCIUM 7.9 mg/dL (8.5-10.1); CREATININE 1.7 mg/dL (0.6-1.3); POTASSIUM 4.8 mmol/L (3.5-5.1)
--- NOTE | 2019-12-19 06:48 | NUR ---
ASSUMED CARE OF PT AFTER REPORT AT 1930. PT A&OX4. FORGETFUL AT TIMES. VSS. PHYSICAL ASSESSMENT COMPLETED AND CHARTED. PT ON O2 AT 2L NC. PT TRACING AFIB/PVC ON TELE. PT DENIES PAIN. PT ABLE TO SLEEP WELL ON BED. PT INSTRUCTED ON NPO POST MIDNIGHT FOR LEFT THORACENTESIS TODAY. COMMUNICATES UNDERSTANDING. CALL LIGHT WITHIN REACH.
[2019-12-19 08:00] VITALS: BP 107/53
[2019-12-19 12:00] VITALS: BP 113/54
[2019-12-19] MEDS ORDERED: FLOMAX0.4 MG PO (13:23)
[2019-12-19] MEDS ORDERED: METFORMIN HCL500 M1 PO (13:23)
[2019-12-19] MEDS ORDERED: GLUCOTROL5 MG PO (13:23)
[2019-12-19] MEDS ORDERED: LEVALBUTER1.25 MG/0. INH (13:23)
[2019-12-19 16:00] VITALS: BP 98/53
--- NOTE | 2019-12-19 16:14 | NUR ---
CM INFORMED BY THE PHYSICIAN IN-CHARGE OF THE PT OF THE PT'S DTR'S REQUEST TO HAVE THE PT GO TO INPT REHAB WHEN MEDICALLY STABLE. PT'S DTR INFORMS OF STRONG FAMILY SUPPORT AND ABILTY TO PROVIDE 24/7 CARES FOR THE PT IF NEEDED AT D/C. CM RECIEVED A CALL FROM THE PT'S GRANDDAUGHTER KALIN AND SHE INFORMS THAT SHE IS FOLLOWING-UP ON THE REQUEST FOR A HOSPITAL BED FOR THE PT. CM SENT THE REFERRAL TO [facility]. CM AWAITING A RETURN CALL FROM [facility] TO INFORM OF APPROVAL OF THE HOSPITAL BED. CM WILL REMAIN AVAILABLE TO ASSIST AND FOLLOW NEEDED.
[2019-12-19 20:00] VITALS: BP 100/56
[2019-12-20] VITALS: BP 99/51
[2019-12-20 04:00] VITALS: BP 104/53
--- NOTE | 2019-12-20 07:55 | NUR ---
ASSUMED CARE OF PATIENT THIS MORNING FROM NIGHT NURSE. PT IS DOING WELL AND WHILE WEAK ABLE TO BE UP FOR ALL MEALS. HE WAS EDUCATED ON POC, DISEASE PROCESS AND USING THE CALL LIGHT FOR ASSISTANCE. BED IN LOWEST POSITION AND CALL LIGHT IS IN REACH. WILL CONTINUE TO MONITOR.
[2019-12-20 08:00] VITALS: BP 111/60
[2019-12-20 12:00] VITALS: BP 124/58
[2019-12-20 16:00] VITALS: BP 120/58
[2019-12-20 20:00] VITALS: BP 131/55
[2019-12-21] VITALS: BP 112/53
[2019-12-21 03:57] VITALS: BP 97/52
[2019-12-21 05:01] LABS: HEMATOCRIT 23.2 % (42.0-52.0); MCH 32.2 pg (26.0-34.0); MCHC 34.4 g/dL (28.0-37.0); MCV 93.6 fL (80.0-100.0); MPV 11.3 fl. (7.2-11.1); RBC 2.48 mil/uL (4.50-6.00); RDW-CV 13.6 % (10.5-14.5); WBC 7.3 thou/uL (4.0-11.0)
[2019-12-21 05:20] LABS: CALCIUM 7.8 mg/dL (8.5-10.1); CREATININE 1.5 mg/dL (0.6-1.3); POTASSIUM 4.2 mmol/L (3.5-5.1)
--- NOTE | 2019-12-21 05:34 | NUR ---
ASSUMED PATIENT CARE AT 1900. PATIENT ALERT AND ORIENTED TIMES FOUR. UP WITH STB AND WALKER TO THE RESTROMM. IV PATENT TO INFUSION. NO COMPLAINTS OF PAIN OR DISCOMFORT NOTED. ADVERTISING VICE PRESIDENT AND HOURLY ROUNDING COMPLETED MARCELO
[2019-12-21 08:00] VITALS: BP 117/61
[2019-12-21 12:48] VITALS: BP 117/61
[2019-12-21 14:30] VITALS: BP 117/61
--- NOTE | 2019-12-21 15:00 | NUR ---
PT WAS DISCHARGED TO REHAB, FAMILY IS AT BEDSIDE.
--- NOTE | 2019-12-22 12:06 | PATH ---
[address] [address] PATHOLOGY RPT PROCEDURE Name: ANGELICA HOANG Daljit Room: [address]#: [id number] Admission: 12/13/19 Date of : 31 Discharge: 12/21/19 Report #: [id number] Path Case #: [id number] Note [facility] Accession Number: [id number] TESTS RESULT FLAG UNITS REF RANGE LAB Clinician Provided Cytology Information No. of containers..01 Other (Miscellaneous) Source: 01 RIGHT PLEURAL FLUID Clinician ICD10: 01 I13.0 I50.43 DIAGNOSIS: 02 RIGHT PLEURAL FLUID NEGATIVE FOR MALIGNANT CELLS. MESOTHELIAL CELLS AND FEW, PREDOMINANTLY CHRONIC INFLAMMATORY CELLS. THIS INTERPRETATION INCLUDES EVALUATION OF A CELL BLOCK. Signed out by: Jodie Mccann MD, Pathologist NPI- [id number] Performed by: Lucila Nunez, Tub Mender ([facility]) Gross description: 01 30ML, PALE YELLOW, 1 TP 1 CB /LCS 12/18/2019 1626 Local FLAG LEGEND: L-Low Normal,H-High Normal,LL-Alert Low,HH-Alert High <-Panic Low,>-Panic High,A-Abnormal,AA-Critical Abnormal Performed at: [address] [place] [address] Darrick Woodard MD, [address] [address] Venkata Mccann MD, Performed at: [address], [place], [place] [id number] MD Darrick Woodard MD Phone: [phone]
== END 2019-12-21 15:25 | DRG 291 ==
LOC: M.ERS 11:02 → M.2W 14:23 → M.TBA-ER 14:23 → M.2W 16:52
PROVIDERS: Internal Medicine; Internal Medicine Cardiovascular Disease; Personal Emergency Response Attendant; Registered Nurse; ADMIT Internal Medicine; ATTEND Internal Medicine
PROC: 0W9930Z Drainage of Right Pleural Cavity with Drainage Device, Percutaneous Approach (ICD-10-PCS; principal; 2019-12-18)
PROC: 0W9B30Z Drainage of Left Pleural Cavity with Drainage Device, Percutaneous Approach (ICD-10-PCS; 2019-12-19)
DX: I13.0 Hypertensive heart and chronic kidney disease with heart failure and stage 1 through stage 4 chronic kidney disease, or unspecified chronic kidney disease (principal); I50.43 Acute on chronic combined systolic (congestive) and diastolic (congestive) heart failure; J96.01 Acute respiratory failure with hypoxia; D68.59 Other primary thrombophilia; N17.9 Acute kidney failure, unspecified; E87.2 Acidosis; I48.20 Chronic atrial fibrillation, unspecified; J91.8 Pleural effusion in other conditions classified elsewhere; I48.91 Unspecified atrial fibrillation; N18.3 Chronic kidney disease, stage 3 (moderate); I25.10 Atherosclerotic heart disease of native coronary artery without angina pectoris; E03.9 Hypothyroidism, unspecified; I43 Cardiomyopathy in diseases classified elsewhere; I49.5 Sick sinus syndrome; F03.90 Unspecified dementia, unspecified severity, without behavioral disturbance, psychotic disturbance, mood disturbance, and anxiety; E11.65 Type 2 diabetes mellitus with hyperglycemia; E11.22 Type 2 diabetes mellitus with diabetic chronic kidney disease; I48.0 Paroxysmal atrial fibrillation; D69.6 Thrombocytopenia, unspecified; E78.5 Hyperlipidemia, unspecified; J44.9 Chronic obstructive pulmonary disease, unspecified; Z95.1 Presence of aortocoronary bypass graft; Z95.0 Presence of cardiac pacemaker; Z79.899 Other long term (current) drug therapy; Z79.84 Long term (current) use of oral hypoglycemic drugs; Z79.01 Long term (current) use of anticoagulants; Z87.891 Personal history of nicotine dependence; Z03.818 Encounter for observation for suspected exposure to other biological agents ruled out

== ENCOUNTER 2019-12-21 13:59 | Inpatient (IN) | payer MEDICARE ==
[~2019-12-21] VITALS: Ht 172.7 cm; Wt 58.1 kg
--- NOTE | ~2019-12-21 | CON ---
[facility] [address] [place] [address] CONSULTATION Name: ANGELICA HOANG Room: [address] IN M.R.#: [id number] Admission: 12/21/19 Attend Phys: Ganesh Serrano MD Discharge: Date of : 32 Report #: [id number] THIS REPORT FOR: //name// cc: VAENSSA Boykin family physician/PCP VANESSA - Lucretia family physician/PCP ~ THIS REPORT FOR: //name// CC: VANESSA physician/PCP Ganesh Serrano DATE OF SERVICE: 01/01/2020 HISTORY OF PRESENT ILLNESS: This is an 89-year-old male patient, who was evaluated by me because as I understand, they could not wake him up. I took history from the daughter and she says that the patient has been sick with nausea, vomiting, and diarrhea. This is going on for a few weeks. He is getting weaker and weaker and he was admitted here. He was sleepy, but he wakes up. When he wakes up, he follows simple commands. REVIEW OF SYSTEMS: This patient has been diagnosed with Lewy body dementia. He goes to [facility] for that. They have done evaluation, but I do not have any evaluation. He has a history of pleural effusion and looks like he has a history of atrial fibrillation. He has nausea, vomiting and diarrhea, which is going on for some time. He does have a history of diabetes. Record indicates he has a history of chronic heart failure, STEMI, closed head injury, near syncope. He does have a pacemaker. One time, they tried to do an MRI on him because he needed one and they were told that pacemaker is not compatible with MRI. He does have a history of COPD. That was his relevant 14-point review of systems. PAST MEDICAL HISTORY: Positive for diarrhea. FAMILY HISTORY: Unremarkable. SOCIAL HISTORY: He does not drink any alcohol. PHYSICAL EXAMINATION: NEUROLOGIC: Limited. He is sleepy. He wakes up. To me, he can tell me what month it is and what day it is. I do not know what his baseline is. His speech looks intact. Cranial nerve examination 2-12, the best it could be done, does not appear to be showing any definite abnormality. He does appear to have a symmetrical strength, sensation, reflexes, and tone in all 4 extremities. There is no meningeal sign. There is no carotid bruit. I could not look at the fundus. CARDIAC AND RESPIRATORY: Appear noncontributory. GENERAL: [place] [id number] CONSULTATION Name: ANGELICA HOANG Room: [address] IN [facility].#: [id number] Admission: 12/21/19 Attend Phys: Ganesh Serrano MD Discharge: Date of : 31 Report #: [id number] HEENT: His hearing and vision looks adequate. VITAL SIGNS: Pulses are somewhat difficult to feel. Blood pressure is 101/52, respirations 16, pulse is 62, temperature is 97.2. LABORATORY DATA: His white count is normal at 6.1. His sodium is normal at 138. IMPRESSION: Pretty difficult to form in this patient. He probably is weak from his chronic diarrhea, nausea, and vomiting. His vitamin B12 is somewhat on the lower side, so I will give him 1 shot and I will check a TSH and CPK. I will suggest giving him some thiamine. We will await the CT and EEG. I do not think he will be able to do the MRI because he was told that pacemaker is not compatible with MRI. Thank you very much for this referral and if you have any question, please feel free to contact me. Dr. Ku will follow up this patient with you from tomorrow. By: [id number] Mcclain MD /nt
[~2019-12-21 13:59] MED LIST changes: +FLOMAX0.4 MG PO; +METFORMIN HCL500 M1 PO
--- NOTE | 2019-12-21 16:56 | NUR ---
NEW ADMISSION, ALERT AND ORIENTED X 4 HE IS A VERY PICKY EATER AND HIS DAUGHTER CAME AND BROUGHT HIM FOOD FROM HOME THIS PM HE HAS BEEN ON THE REHAB UNIT FOR A COUPLE OF HOURS AND IS RESTING AT THIS TIME. DAUGHTER IS IN THE ROOM. BED ALARM IS ON AND HE IS ON FALL PRECATIONS. CALL LIGHT IS IN EASY REACH AND HE IS ABLE TO MAKE HIS NEEDS KNOWN.
[2019-12-21 19:00] VITALS: BP 104/60
[2019-12-22 04:01] LABS: ABSOLUTE EOSINOPHILS 0.1 thou/uL (0.0-0.7); ABSOLUTE LYMPHOCYTES 1.1 thou/uL (0.8-5.3); ABSOLUTE MONOCYTES 0.9 thou/uL (0.0-1.2); ABSOLUTE NEUTROPHILS 5.8 thou/uL (1.6-8.1); BASOPHILS 0.4 %; EOSINOPHILS 1.7 %; HEMATOCRIT 24.6 % (42.0-52.0); HEMOGLOBIN 8.3 gm/dL (14.0-18.0); LYMPHOCYTES 13.6 %; MCH 31.5 pg (26.0-34.0); MCHC 33.8 g/dL (28.0-37.0); MCV 93.4 fL (80.0-100.0); MONOCYTES 11.2 %; MPV 11.2 fl. (7.2-11.1); NUCLEATED RBCS 0 /100WBC; PLATELET COUNT* 136 thou/uL (150-400); POLYS 73.1 %; RBC 2.64 mil/uL (4.50-6.00); RDW-CV 13.8 % (10.5-14.5); WBC 7.9 thou/uL (4.0-11.0)
[2019-12-22 04:08] LABS: CALCIUM 7.7 mg/dL (8.5-10.1); CREATININE 1.4 mg/dL (0.6-1.3); POTASSIUM 4.5 mmol/L (3.5-5.1)
--- NOTE | 2019-12-22 04:16 | NUR ---
PATIENT SLEPT WELL DURING THIS SHIFT. PT UP TO BATHROOM WITH WALKER, G.BELT AND ASSIST OF ONE. PT DENIES PAIN. PT WITH BLOOD SUGAR AT 2029 OF 63; SNACK PROVIDED, RECHECKED AT 2119 AND FOUND TO BE AT 72; ORANGE JUICE GIVEN. PT IS ON ROOM AIR. FREQUENTLY USED ITEMS AND CALL LIGHT WITHIN REACH. SIDERAILS UPX2 AND BED ALARM ON. WILL CONTINUE TO MONITOR.
[2019-12-22 07:00] VITALS: BP 101/41
--- NOTE | 2019-12-22 11:57 | NUR ---
Nutrition: Pt admitted to rehab with cardiac debility. H/o DM, CHF, afib, dem. Eating 75-100% of meals. BG has been low, 62-94, so Glipizide was d/c'd. Alb 2.8, prealb 13.9. On metformin, statin. CHO controlled diet. Nsg risk 2 points, but pt has weighed in 140s all year, per [employer]. Was weighing 160s prior to that (Feb 2019). Eating well. Low nutrition risk.
--- NOTE | 2019-12-22 16:03 | NUR ---
INITIAL ASESSMENT: PATIENT ADMITTED TO THE INPATIENT REHAB UNIT ON 12/21/19 WITH A DIAGNOSIS O CADIAC DEBILITY. PATIENT ALERT AND ORIENTED. PRIOR TO ADMISSION PATIENT INDEPENDENT WITH ADL'S. PT USED A CANE AT HOME PRIOR TO ADMIT. PT RESIDES AT HOME WITH HIS SPOUSE AND DTR (CAROL). CAROL AND HIS GRANDDAUGHTER KALIN ARE ABLE TO ASISST WITH D/C PLANNING, AND ARE SUPPORTIVE AND INVOLVED IN HIS POC. PT HAD BEEN ON-SERVICE WITH [facility] PRIOR TO ADMIT AND IS HOPEFUL TO RETURN HOME AND RESUME HH AT D/C. PT HAS 0 HX OF SNF. CM HAD STARTED THE PROCESS OF OBTAINING A HOSPITAL BED THROUGH THE PT'S INSURANCE DURING HIS INPATIENT ADMISSION. CM WILL F/U WITH [facility] TO DISCUSS ABILITY TO OBTAIN HOSPITAL BED FOR PT AT D/C. PT REQUEST TO CM SPEAK TO CAROL TO DISCUSS TEAM CONFRENCE MEETINGS AND D/C PLANNING. PT ORIENTED TO THE ROLE OF CM, REHAB AND RESIDENTS RIGHTS INFO, REHAB PROCESS AND TEAM CONFRENCE. PT SIGNED IRF FORM AND COPY PLACED ON THE CHART. CM WILL REMAIN AVAILABLE TO ASSIST AND FOLLOW NEEDED. CAROL RUFFIN (PT'S DTR) CELL: [phone]
--- NOTE | 2019-12-22 18:06 | NUR ---
ASSUMED CARE AT 0730. ALERT ORIENTED PLEASANT COOPERATIVE. HX OF CARDIAC DEBILITY. TRANSFERS WITH SBA HAND HELD ASSIST FROM BED TO RECLINER. USING CALL LIGHT FOR ASSIST. APPETITE FAIR FEEDS SELF BUT ACCORDING TO DAUGHTER PTS. APPETITE NOT GOOD FOR SOME TIME. DAUGHTER BROUGHT PT. PEANUT BUTTER AND JELLY SANDWICH FOR LUNCH. HE ATE IT. NURSE PRACTICIONER ABRIL DID CHANGE ORDERS ON SOME DIABETIC MEDS. PARTICIPATING IN THERAPIES TODAY.TAKES MEDS WITHOUT DIFFICULTY. DENIES PAIN OR REQUESTS. HOURLY ROUNDING COMPLETED.
[2019-12-22 20:00] VITALS: BP 108/57
--- NOTE | 2019-12-23 04:54 | NUR ---
ASSUMED CARES AT 1920. ALERT AND ORIENTED. PLEASANT. DENIED ANY PAIN. MIN ASSIST WITH GAIT BELT AND WALKER. UP TO BR X 2. PULLUPS. PT ASKED FOR SLEEP AID AND SO ORDER FOR MELATONIN OBTAINED. SLEPT MOST OF THE NIGHT. CALL LIGHT IN REACH AND BED ALARM ON.
[2019-12-23 08:41] VITALS: BP 105/58
--- NOTE | 2019-12-23 16:45 | NUR ---
CM SP0KE TO THE PT AND DTR TO DISUCSS ANY QUESTIONS OF CONCERNS THAT THEY MAY HAVE FOR TOMORROWS TEAM CONFRENCE MEETING. PT AND DTR CAROL DO NOT HAVE ANY QUESIONS OR CONCERNS AT THIS TIME. CM WILL CONTINUE TO ASSIST AND FOLLOW.
--- NOTE | 2019-12-23 18:45 | NUR ---
ALERT AND ORIENTED X4. UP WITH 1 ASSIST, GAIT BELT AND WALKER. DENIED NEED FOR PAIN MEDICATION. ZOFRAN GIVEN X1 FOR C/O NAUSEA AND HELPFUL. CONTINENT OF BLADDER. USES CALL LIGHT WITHIN REACH. FALL PRECAUTIONS IN PLACE. BED ALARM AND CHAIR ALARM USED.
[2019-12-23 19:00] VITALS: BP 97/46
--- NOTE | 2019-12-24 05:49 | NUR ---
ASSUMED CARES AT 1920. ALERT AND ORIENTED PLEASANT. DENIED ANY PAIN. NO FURTHER NAUSEA. MIN ASSIST WITH GAIT BELT AND WALKER. UP TO BATHROOM. NO ISSUES OVERNIGHT. SLEPT WELL. CALL LIGHT IN REACH AND BED ALARM ON.
[2019-12-24 08:44] VITALS: BP 114/58
--- NOTE | 2019-12-24 15:59 | NUR ---
ALERT AND ORIENTED X4. DENIES NEED FOR PAIN MEDICATION. UP WITH 1 ASSIST, GAIT BELT AND WALKER. HAD DIARRHEA TODAY AFTER NO BOWEL MOVEMENT FOR 2 DAYS. NO C/O NAUSEA TODAY. CONTINENT OF BOWEL AND BLADDER. USES CALL LIGHT FOR ASSIST. FALL PRECAUTIONS IN PLACE. BED ALARM AND CHAIR ALARM USED.
--- NOTE | 2019-12-24 17:39 | NUR ---
TEAM CONFRENCE MEETING HELD TODAY. CM INFORM PATIENT AND HIS DTR ABOUT MEETING AND PLAN TO RE-TEAM NEXT WEEK. PATIENT AND DTR IN AGREEMENT. PATIENT PROGRESSING TOWARDS GOALS, BUT BARRIERS ARE GENERALIZED WEAKNESS, DECREASED BALANCE AND ACTIVITY TOLERANCE, AND ENDURANCE. CM WILL REMAIN AVAILABLE TO ASSIST AND FOLLOW.
[2019-12-24 19:45] VITALS: BP 115/57
[2019-12-25 08:00] VITALS: BP 117/57
[2019-12-25 08:23] LABS: ABSOLUTE EOSINOPHILS 0.1 thou/uL (0.0-0.7); ABSOLUTE LYMPHOCYTES 1.1 thou/uL (0.8-5.3); ABSOLUTE MONOCYTES 0.6 thou/uL (0.0-1.2); ABSOLUTE NEUTROPHILS 4.5 thou/uL (1.6-8.1); BASOPHILS 0.5 %; EOSINOPHILS 1.1 %; HEMATOCRIT 24.2 % (42.0-52.0); HEMOGLOBIN 8.3 gm/dL (14.0-18.0); LYMPHOCYTES 17.7 %; MCH 31.8 pg (26.0-34.0); MCHC 34.1 g/dL (28.0-37.0); MCV 93.3 fL (80.0-100.0); MONOCYTES 9.9 %; MPV 10.9 fl. (7.2-11.1); NUCLEATED RBCS 0 /100WBC; PLATELET COUNT* 118 thou/uL (150-400); POLYS 70.8 %; RBC 2.59 mil/uL (4.50-6.00); RDW-CV 13.3 % (10.5-14.5); WBC 6.4 thou/uL (4.0-11.0)
[2019-12-25 08:40] LABS: ALBUMIN 2.6 g/dL (3.4-5.0); CALCIUM 7.7 mg/dL (8.5-10.1); CREATININE 1.5 mg/dL (0.6-1.3); TOTAL BILIRUBIN 0.7 mg/dL (<0.1-1.0); TOTAL PROTEIN 4.9 g/dL (6.4-8.2)
--- NOTE | 2019-12-25 18:14 | NUR ---
AM ASSESSMENT COMPLETED DOCUMENTED. PT HAS BEEN A/O AND PLEASANT. PT IS AMBULATORY WITH A WALKER AND STAND BY ASSIST, CALLS FOR HELP BEFORE GETTING UP. HIGH CALORIE FOODS PROVIDED WITH EACH MEAL TO INCREASE CONSUMPTION. PT DENIES PAIN OR DISCOMFORT. FALL PRECAUTIONS AND HOURLY ROUNDING CONTINUE.
[2019-12-25 19:30] VITALS: BP 112/54
--- NOTE | 2019-12-26 03:46 | NUR ---
PT A&O, FORGETFUL AT TIMES. VSS ON RA. MEDS GIVEN ORDERED. NO C/O PAIN. PT SLEEPING/RESTING QUIETLY THROUGH THE NIGHT. CALL LIGHT WITHIN REACH. WILL CONTINUE TO MONITOR.
[2019-12-26 07:00] VITALS: BP 140/53
--- NOTE | 2019-12-26 18:11 | NUR ---
AM ASSESSMENT AND VITAL SIGNS COMPLETED DOCUMENTED. PT CONTINUES TO MAKE PROGRESS TOWARD DISCHARGE GOALS. PT'S DAUGHTER VISITS FREQUENTLY AND IS INVOLVED IN HIS PLAN OF CARE. PHYSICAL THERAPIST TOLD THE PT HE COULD AMBULATE IN THE HALLS WITH HIS / DAUGHTER THIS WEEKEND. FALL PRECAUTIONS AND HOURLY ROUNDING CONTINUE.
[2019-12-26 19:48] VITALS: BP 108/50
--- NOTE | 2019-12-27 04:57 | NUR ---
PT ALERT AND ORIENTED, NO REPORTS OF PAIN OR DISCOMFORT. UP WITH ASSISTANCE AND GAIT BELT AND WALKER TO RESTROOM. USES CALL LIGHT FOR ASSISTANCE AND BED ALARM IS ON. HELD BEDTIME [facility] BP 108/50 HR 64. ON ROOM AIR, SKIN IS GOOD. WILL CONTINUE TO MONITOR.
[2019-12-27 07:00] VITALS: BP 120/51
--- NOTE | 2019-12-27 19:39 | NUR ---
ALERT AND ORIENTED X4 WITH PERIODS OF HALLUCINATION THIS AM (SAW PEOPLE RUNNING ACROSS CEILING. NO C/O PAIN. N/V PRIOR TO LUNCH BUT REFUSED NAUSEA MEDICATION. UA SENT TO LAB TO CHECK FOR POSSIBLE UTI. USING CALL LIGHT TO ASK FOR ASSIST. FALL PRECAUTIONS IN PLACE. BED ALARM AND CHAIR ALARM USED.
[2019-12-27 19:55] LABS: URINE BILIRUBIN NEGATIVE (Negative); URINE BLOOD NEGATIVE (Negative); URINE CLARITY CLEAR; URINE COLOR YELLOW; URINE GLUCOSE-RANDOM NEGATIVE (Negative); URINE KETONES NEGATIVE (Negative); URINE LEUKOCYTES-REFLEX NEGATIVE (Negative); URINE NITRITE-REFLEX NEGATIVE (Negative); URINE PROTEIN NEGATIVE (Negative)
[2019-12-27 20:00] VITALS: BP 108/54
[2019-12-28 04:34] LABS: HEMATOCRIT 23.5 % (42.0-52.0); HEMOGLOBIN 8.1 gm/dL (14.0-18.0); MCH 32.1 pg (26.0-34.0); MCHC 34.7 g/dL (28.0-37.0); MCV 92.4 fL (80.0-100.0); MPV 11.1 fl. (7.2-11.1); RBC 2.54 mil/uL (4.50-6.00); RDW-CV 13.5 % (10.5-14.5); WBC 6.1 thou/uL (4.0-11.0)
[2019-12-28 04:47] LABS: CALCIUM 8.3 mg/dL (8.5-10.1); CREATININE 1.4 mg/dL (0.6-1.3); MAGNESIUM 1.8 mg/dL (1.8-2.4); POTASSIUM 3.9 mmol/L (3.5-5.1)
--- NOTE | 2019-12-28 05:01 | NUR ---
ASSUMED CARES AT 1920. ALERT AND ORIENTED. PLEASANT. DENIED ANY PAIN. UA RESULTS NEGATIVE. INFORMED DAUGHTER OF RESULTS WELL. MIN ASSIST WITH GAIT BELT AND WALKER. UP TO BR. PULLUPS. SLEPT MOST OF THE NIGHT. CALL LIGHT IN REACH AND BED ALARM ON.
[2019-12-28 07:30] VITALS: BP 112/55
[2019-12-28 07:45] VITALS: BP 112/55
--- NOTE | 2019-12-28 15:27 | NUR ---
PATIENT ALERT AND ORIENTED X4. UP WITH 1 ASSIST, GAIT BELT AND WALKER. NO C/O PAIN. C/O NAUSEA AND VOMITED ALOT OF MUCUS AT LUNCH TIME. MEDICATION GIVEN FOR NAUSEA AND PATIENT CURRENTLY RESTING QUIETLY IN BED AT THIS TIME. FAMILY AT BEDSIDE. AMBULATES TO BATHROOM AND IS CONTINENT OF BOWEL AND BLADDER. DAUGHTER AT BEDSIDE. USES CALL LIGHT WHEN NEEDING ASSIST. FALL PRECAUTIONS IN PLACE.
[2019-12-28 19:00] VITALS: BP 105/52
--- NOTE | 2019-12-29 07:37 | NUR ---
ASSUMED CARES AT 1930. ALERT AND ORIENTED. PLEASANT. DENIED ANY PAIN. MIN ASSIST WITH GAIT BELT AND WALKER. UP TO BATHROOM. SLEPT WELL. CALL LIGHT IN REACH AND BED ALARM ON.
[2019-12-29 08:54] VITALS: BP 116/54
--- NOTE | 2019-12-29 15:32 | NUR ---
ALERT AND ORIENTED X4. UP WITH STAND BY ASSIST, GAIT BELT AND WALKER. DENIES NEED FOR PAIN MEDICATION. PEPTO BISMO GIVEN THIS AM AND PATIENT HAS DENIED NAUSEA TODAY. INCONTINENT OF URINE X1. USES CALL LIGHT WHEN ASKING FOR ASSIST. FALL PRECAUTIONS IN PLACE, BED ALARM AND CHAIR ALARM USED.
[2019-12-29 20:00] VITALS: BP 111/46
--- NOTE | 2019-12-30 06:23 | NUR ---
ASSUMED CARES AT 1920. ALERT AND ORIENTED. PLEASANT. DENIED ANY PAIN. MIN ASSIST WITH GAIT BELT AND WALKER. UP TO BR. NO FURTHER N/V. SLEPT WELL. CALL LIGHT IN REACH AND BED ALARM ON.
[2019-12-30 08:00] VITALS: BP 124/56
--- NOTE | 2019-12-30 18:12 | NUR ---
AM ASSESSMENT AND VITAL SIGNS COMPLETED DOCUMENTED. PT HAS WORKED WITH ALL THERAPIES TODAY AND USUALLY RESTS IN BETWEEN SESSIONS. PT DENIED NAUSEA UNTIL DINNER AND THEN HAD A SMALL AMOUNT OF EMESIS MIXED WITH CLEAR PHLEGM. PT HAS HAD AN ONGOING ISSUE WITH SUDDEN NAUSEA AND VOMITING, USUALLY AT DINNER. PT'S DAUGHTER IS IN THE ROOM AND IS CONCERNED BECAUSE SHE THOUGHT IT HAD RESOLVED AFTER HIS ESOPHAGUS WAS STRETCHED. FALL PRECAUTIONS AND HOURLY ROUNDING CONTINUE.
[2019-12-30 19:00] VITALS: BP 99/48
--- NOTE | 2019-12-30 19:30 | NUR ---
RESTING QUIETLY IN SEMI-FOWLERS IN BED. DAUGHTER AT BEDSIDE AND REQUESTED THAT GI BE BACK ON HIS CASE DESPITE RECENT WORK UPS. INFORMED DAUGHTER THE DOCTOR WOULD BE NOTIFIED OF HER REQUEST. DAUGHTER STATES PATIENT VOMITED BILE EARLIER. PATIENT WAS GIVEN ZOFRAN ON DAYSHIFT. CALL LIGHT WITHIN REACH.
--- NOTE | 2019-12-31 05:24 | NUR ---
HOME CARE AND HOME HEALTH AIDES TEACHER DR. BOWDEN WAS INFORMED OF DAUGHTER'S REQUEST TO HAVE A GI CONSULT. ALSO INFORMED DR. BOWDEN OF PATIENT'S LOW B/P. PARAMETERS WERE GIVEN FOR WHEN TO HOLD TOPROL. PATIENT HAD NO FURTHER COMPLAINTS OF NAUSEA, THIS MORNING PATIENT WAS UNSTEADY AND REQUIRED THE WALKER TO AMBULATE TO THE TOILET. BEFORE REACHING THE TOILET THE PATIENT BECAME MORE UNSTEADY AND HAD TO SIT DOWN BEFORE PULLING HIS PANTS DOWN. PATIENT WAS INCONTINENT OF A MODERATE FORMED BM IN HIS PULL UPS. PATIENT WAS ABLE TO STAND BACK UP WITH ASSISTANCE TO PULL HIS PANTS WERE PULLED DOWN. AFTER PATIENT VOIDED HE WAS ABLE TO GET FROM SITTING TO STANDING WITH MINIMAL ASSIST OF ONE. HOURLY ROUNDING IN PROGRESS.
[2019-12-31 07:30] VITALS: BP 118/51
[2019-12-31 08:32] VITALS: BP 118/57
--- NOTE | 2019-12-31 11:29 | NUR ---
Nutrition: Follow up note. Wts were variable in [facility]: usual wt of 140s all year, then 129# in Rehab. RM Monalisa tared bed and reweighed pt today; current wt is 128.3#. Pt has lost 10% body wt in <1 year. He is eating well, with some noted N/V. Current BMI is 19.4. Will follow wt and po intake closely. GOALS: >75% of meals. Oral supplements available if po intake <60% or wt loss occurs. Will follow weekly. Mild to moderate risk.
--- NOTE | 2019-12-31 17:36 | NUR ---
TEAM CONFRENCE MEETING HELD TODAY. INFORMED PATIENT AND DTR OF MEETING AND PLAN TO ALLOW THE PATIENT TO BE MODIFIED INDEPENDENT IN THE ROOM NAD D/C TOMORROW HOME WITH HH. PT AND DTR INAGREEMENT. PT'S DTR INFORMS THAT HER ONLY CONCERN IS WITH THE PT'S 'VOMITING AFTER DINNER MEALS'. CM INFORMED THE PT THAT THE PHYSCIAN WAS LOOKING INTO THAT. PT'S DTR INFORMS THAT THE PT'S HOSPITAL BED ISIDRA BE DELIVERED TO THE PT'S HOME TOMORROW AROUND 1600. PLAN FOR PT'S PRIOR HH COMPANY ([facility] [employer]) TO RESUME CARE AT D/[facility] WILL REMAIN AVAILABLE TO ASSIST AND FOLLOW NEEDED. [facility] [employer] PHONE: [phone]
--- NOTE | 2019-12-31 18:20 | NUR ---
ASSESSMENT COMPLETED DOCUMENTED THIS MORNING. PATIENT IS UP AND HAS PROGRESSED VERY WELL WITH THERAPY. TEAM CONFERENCE TODAY AND PATIENT WAS UPGRADED TO MOD I AND TO BE DCD TOMORROW. NO N/V/D TODAY, APPETITE IS FAIR AT EACH MEAL. DAUGHTER IN TO VISIT MULTIPLE TIMES THROUGHOUT THE DAY. CXR PERFORMED WITH NO ACUTE CHANGES OR ABNORMALITIES. BGL 109/183.
[2019-12-31 19:20] VITALS: BP 99/53
--- NOTE | 2019-12-31 19:20 | NUR ---
AWAKENED FOR VITAL SIGNS AND REASSESSMENT. DENIES DISCOMFORT. CALL LIGHT WITHIN REACH.
--- NOTE | 2020-01-01 05:47 | NUR ---
PATIENT DIDN'T DO WELL WITH BEING MODIFIED INDEPENDANT. CALLED AT ABOUT 0110 FOR ASSISTANCE TO THE BATHROOM. IT TOOK ASSIST OF TWO, GAITBELT AND WALKER TO ASSIST PATIENT TO THE BATHROOM. HE WAS WEAK, UNSTEADY AND INCONTINENT OF LOOSE STOOL. ASSISTED WITH JOSE EDUARDO CARE. PATIENT HAD TWO MORE EPISODES OF BEING INCONTINENT OF LOOSE STOOL IN BED. PEPTO BISMOL WAS GIVEN WITH RELIEF. THE PLAN IS FOR PATIENT TO BE DISCHARGED TO HOME TODAY. HOURLY ROUNDING IN PROGRESS.
[2020-01-01 08:00] VITALS: BP 101/52
[2020-01-01 11:50] VITALS: BP 101/52
--- NOTE | 2020-01-01 12:59 | NUR ---
PATIENT RETURNED HIMSELF TO BED AFTER BREAKFAST AND POSITIONS HIS BED FLAT. CALLED OUT FOR NURSING R/T "I POOPED MY PANTS." NURSING HELD COLACE THIS MORNING R/T POMOLOGIST REPORTING DIARRHEA THROUGH THE NIGHT. MODERATE AMOUNT OF LIQUID STOOL NOTED IN PANTS AND BRIEF. PATIENT WAS ASSISTED TO THE BR AND WAS ABLE TO PROVIDE HIS OWN TOILETING HYGIENE. METOPROLOL HELD WELL THIS MORNING D/T BP 101/52. IMODIUM 4MG PO GIVEN AT 1011 PER TELEPHONE ORDER FROM DR. HERNDON. DAUGHTER CALLED EARLY THIS MORNING R/T "SWALLOW STUDY THAT HAS NOT BEEN DONE... LEATHA SAID THE WAY HE WAS SWALLOWING THE OTHER DAY WAS WHY HE WAS VOMITING AND SHE WAS GOING TO ORDER A SWALLOW STUDY." SPOKE WITH CLAUDIA SOLANO AND SHE STATED SHE WAS NOT INFORMED NOR WAS THERE AN ORDER FOR SWALLOW STUDY BUT SHE WOULD DO A BEDSIDE EVAL. ATTEMPTS TO PERFORM A BEDSIDE SWALLOW EVAL PROVED UNSUCCESSFUL D/T PATIENT NOT COOPERATING, KEEPING EYES CLOSED, WRETCHING THOUGH TO VOMIT AND ONLY PRODUCING CLEAR FOAMY SPUTUM, MOIST COUGH AND CONGESTION NOTED. PATIENT ASSISTED WITH POSITIONING UP IN THE BED, AND ZOFRAN 4 MG PO GIVEN, WHICH ALLEVIATED MUCH OF THE CONGESTION AND COUGH. BGL 145, 02 SAT 96%, TEMP 97.5. DR. HERNDON CALLED AT 1150 AND INFORMED OF CHANGES IN STATUS AND THAT PATIENT WAS TO BE DCD TODAY. ORDERS REC'D AND DC PUT ON HOLD. DR. MALONE CALLED AND NOTIFIED OF SITUATION WELL AND WAS IN AGREEMENT. ORDERS PUT IN FOR CXR, CT OF HEAD, AND NEURO CONSULT. OT ATTEMPTED TO WORK WITH PATIENT AND HE STATED "I CAN'T DO ANYTHING I CAN'T GO HOME LIKE THIS I AM SO SICK." (WHILE KEEPING HIS EYES CLOSED.) 1200 PATIENT'S DTR CAROL CALLED AND SHE CAME UP TO PATIENT'S ROOM. PATIENT THEN BEGAN TO VOMIT YELLOW COLORED LIQUID. RADIOLOGY ARRIVED TO TAKE HIM DOWN FOR CXR AND HE REFUSED TO GO STATING HE WAS TOO SICK TO GO IN THE W/C....PORTABLE OBTAINED. NEURO CONSULT CALLED TO DR. RAND'S OFFICE AND SPOKE WITH GEMA AT 1205. 1250 DR. RAND HERE TO SEE PATIENT. 1300 RADIOLOGY TRANSPORT HERE TO TAKE PATIENT DOWN FOR CT OF HEAD....WAS ABLE TO GO AT THIS TIME. THERAPY MINUTES PUT ON HOLD FOR THE DAY R/T PATIENT'S OVERALL CONDITION AND UNWILLINGNESS TO PARTICIPATE.
--- NOTE | 2020-01-01 14:17 | NUR ---
DR. HERNDON HERE TO SEE PATIENT, DAUGHTER CONCERNED ABOUT HIS N/V AND REFLUX AND WOULD REALLY LIKE GI TO SEE PATIENT. 1415 GI CONSULT CALLED, KEVON PRESCOTT AT DR. MO/ANTHONY OFFICE.
--- NOTE | 2020-01-01 15:54 | NUR ---
CM INFORMED BY NURSING THAT THE PT'S PLANNED D/C FOR TODAY HAS BEEN PUT 'ON HOLD' AT THIS TIME, PT HAS HAD A CHANGE IN STATUS. CM CONTACTED [employer] (PT'S COMPANY) TO INFORM OF THIS. CM WILL CONTACT AND FAX [employer] WHEN PT IS MEDICAL STABLE TO D/C. CM WILL REMAIN AVAILABLE TO ASSIST AND FOLLOW NEEDED. [employer] PHONE: [phone] FAX: [phone]
--- NOTE | 2020-01-01 17:48 | NUR ---
EEG OBTAINED AND WHEN IT WAS COMPLETED PATIENT CALLED OUT AND ASKED, "CAN I GO HOME NOW?" INSTRUCTED PATIENT AND HIS DAUGHTER WHO WAS AT THE BEDSIDE THAT HE WAS NOT GOING TO BE DCD TONIGHT AFTER THE ISSUES HE EXPERIENCED TODAY...NEW ORDERS WRITTEN BY DR. RAND, AND THE GI CONSULT THAT HAS BEEN CALLED IN. B12 INJECTION GIVEN IN LEFT HIP ORDERED. PATIENT ASSISTED UP TO CHAIR AND IS EATING SUPPER. HAS HAD NO FURTHER INCIDENTS OF N/V/D, BUT IS ASKING FOR MEDICINE TO STOP DIARRHEA. PATIENT AND DAUGHTER VOICED UNDERSTANDING THAT HE WAS NOT GOING TO GO HOME TONIGHT "THEY JUST THOUGHT THEY WOULD TRY."
[2020-01-01 20:00] VITALS: BP 105/59
--- NOTE | 2020-01-02 05:13 | NUR ---
ASSUMED CARES AT 1920. ALERT AND ORIENTED. PLEASANT. DENIED ANY PAIN. NO FURTHER N/V. NO STOOLS OVERNIGHT. MIN ASSIST WITH GAIT BELT AND WALKER. UP TO BR X 1. PULLUPS. PVR X 1 SHOWED 101 CC. SLEPT BETTER. CALL LIGHT IN REACH AND BED ALARM ON.
[2020-01-02 08:32] VITALS: BP 143/59
[2020-01-02] MEDS ORDERED: FUROSEMIDE 40 M40 MG PO (11:36)
[2020-01-02] MEDS ORDERED: KLOR-CON 1010 MEQ PO (12:16)
--- NOTE | 2020-01-02 12:27 | NUR ---
CM INFORMED BY NURSING THAT THE PT IS READY TO D/C HOME TODAY. PT WILL D/C AND RESUME HH WITH [facility]. CM CALLED AND FAXED PT'S D/C ORDERS TO [facility]. PT'S DTR TO PROVIDE TRANSPORT HOME AND HAVE ARRNAGED TO HAVE HOSPITAL BED DELIVERED TO THE HOME. CM WILL REMAIN AVAILABLE TO ASSIST AND FOLLOW NEEDED. [facility] PHONE: [phone] FAX: [phone]
[2020-01-02 14:20] VITALS: BP 108/61
--- NOTE | 2020-01-02 15:00 | NUR ---
PATEINT STATED FEELING OK BEFORE BREAKFAST. ATE FEW BITES AND BECAME NAUSEATED AND VOMITED. PATIENT NOT C/O NAUSEA BEFORE LUNCH BUT AFTER EATTING A COUPLE OF BITES OF SOUP AND COUPLE OF SIPS OF TEA PATIENT VOMITED HAD SOME BROWN LIQUID EMESIS. PATIENT GIVEN ZOFRAN WITH LITTLE RELIEF. YAIR OLIVA HERE AND TALKED WITH PATIENT. NO NEW ORDERS. DR MALONE NOTIFIED OF PATIENT STILL HAVING N/V AND WANTED PATIENT TO STAY. DR HERNDON NOTIFIED AND WANTED YAIR OLIVA AND DR MALONE TO TALK ABOUT WHAT TO DO FROM HERE. MESSAGE GIVEN TO DR MALONE. AT APROXIMATELY 1415 PATIENT STATED NOT FEELING GOOD. PATIENT COLLAPSED WHILE BEING TRANSFERED FROM RECLINER TO BED AND WAS LOWERED TO FLOOR. V/S TEMPATURE 97.7 PULSE IRREGULAR AND WEAK 38-138 UNABLE TO GET B/P. PATEINT PALE BUT RESPONDING TO QUESTIONS WHEN ASKED.PATIENT PUT TO BED B/P91/61 PULSE 111. PATIENT PUT IN [place]. B/P RECHECK 108/61 PULSE 91. PATIENT STILL C/O NAUSEA. 1430 NOTIFIED AND ORDERED TO DISCHARGE TO TELE. 1435 NURSING SENIOR CONSULTING MANAGER NOTIFIED. 1440 [address] HERNDON NOTIFIED WANTED PATIENT TO STAY AND RUN TEST BUT AFTER TALKING WITH DR HEARD HE SAID OK TO SENDING PATIENT TO TELE UNIT. 1445 STAT EKG DONE. 1450 CARDIOLOGY NURSE KARLOS NOTIFIED.
[2020-01-02 15:35] LABS: ABSOLUTE LYMPHOCYTES 1.4 thou/uL (0.8-5.3); ABSOLUTE MONOCYTES 0.5 thou/uL (0.0-1.2); ABSOLUTE NEUTROPHILS 4.5 thou/uL (1.6-8.1); BASOPHILS 0.4 %; EOSINOPHILS 0.4 %; HEMATOCRIT 27.2 % (42.0-52.0); HEMOGLOBIN 9.4 gm/dL (14.0-18.0); LYMPHOCYTES 22.2 %; MCHC 34.5 g/dL (28.0-37.0); MCV 92.6 fL (80.0-100.0); MONOCYTES 7.1 %; MPV 10.9 fl. (7.2-11.1); NUCLEATED RBCS 0 /100WBC; PLATELET COUNT* 140 thou/uL (150-400); POLYS 69.9 %; RBC 2.94 mil/uL (4.50-6.00); RDW-CV 13.7 % (10.5-14.5); WBC 6.4 thou/uL (4.0-11.0)
[2020-01-02 15:47] LABS: CALCIUM 8.4 mg/dL (8.5-10.1); CREATININE 1.8 mg/dL (0.6-1.3); POTASSIUM 4.2 mmol/L (3.5-5.1)
--- NOTE | 2020-01-02 15:50 | EKG ---
[place] [address] ELECTROCARDIOGRAM REPORT Name: ANGELICA HOANG Room: [address] ADM IN .R.#: [id number] Admission: 12/21/19 Attend Phys: Ganesh Serrano MD Discharge: Date of : 32 Date of Service: 01/02/20 1453 Report #: [id number] THIS REPORT FOR: //name// [facility] Test Date: 2020-01-02 Test Time: 14:53:37 Pat Name: ANGELICA HOANG Department: Room: [address] Gender: M Linen Controller: : 1930 Requested By: Charlie Gonsalez Order Number: [id number] C MD: Jaime Reed Measurements Intervals [place] Rate: 68 P: [place]: QRS: -72 QRSD: 176 T: 106 QT: 410 QTc: 437 Interpretive Statements Afib/flut and V-paced complexes No further analysis attempted due to paced rhythm Compared to ECG 12/13/2019 18:36:22 Left bundle-branch block no longer present Electronically Signed On 01-02-2020 15:50:42 CDT by Jaime Reed [email or web address] <ELECTRONICALLY SIGNED> By: Jaime Reed MD, [facility] 01/02/20 1550 1453 1453 Jaime Reed MD, [facility] /EPI
[2020-01-02 15:51] LABS: TOTAL BILIRUBIN 0.8 mg/dL (<0.1-1.0); TOTAL PROTEIN 5.6 g/dL (6.4-8.2)
--- NOTE | 2020-01-02 16:27 | NUR ---
I have reviewed the documentation by DANNY GEORGE from 12/29/19 to 01/02/20 and I concur with it. CLAUDIA SWAIN
== END 2020-01-02 16:41 | disposition short-term general hospital (02) | DRG 947 ==
LOC: M.REH 13:59
PROVIDERS: Internal Medicine; Nurse Practitioner; ADMIT Physical Medicine & Rehabilitation; ATTEND Physical Medicine & Rehabilitation
DX: R53.81 Other malaise (principal); I50.43 Acute on chronic combined systolic (congestive) and diastolic (congestive) heart failure; N17.9 Acute kidney failure, unspecified; I13.0 Hypertensive heart and chronic kidney disease with heart failure and stage 1 through stage 4 chronic kidney disease, or unspecified chronic kidney disease; I48.20 Chronic atrial fibrillation, unspecified; J44.9 Chronic obstructive pulmonary disease, unspecified; D69.6 Thrombocytopenia, unspecified; E11.22 Type 2 diabetes mellitus with diabetic chronic kidney disease; E78.5 Hyperlipidemia, unspecified; E03.9 Hypothyroidism, unspecified; F03.90 Unspecified dementia, unspecified severity, without behavioral disturbance, psychotic disturbance, mood disturbance, and anxiety; I25.5 Ischemic cardiomyopathy; N18.3 Chronic kidney disease, stage 3 (moderate); I25.10 Atherosclerotic heart disease of native coronary artery without angina pectoris; Z95.1 Presence of aortocoronary bypass graft; I49.5 Sick sinus syndrome; Z95.0 Presence of cardiac pacemaker; Z79.899 Other long term (current) drug therapy

== ENCOUNTER 2020-01-02 18:18 | Inpatient (IN) | payer MEDICARE ==
[2020-01-01 20:00] VITALS: BP 108/58
[~2020-01-02] VITALS: Ht 167.6 cm; Wt 57.6 kg
[2020-01-02 17:00] VITALS: BP 96/51
[~2020-01-02 18:18] MED LIST changes: +FUROSEMIDE 40 M40 MG PO; +KLOR-CON 1010 MEQ PO
[2020-01-02 19:57] LABS: HEMATOCRIT 28.6 % (42.0-52.0); HEMOGLOBIN 9.7 gm/dL (14.0-18.0); MCH 31.7 pg (26.0-34.0); MCHC 33.9 g/dL (28.0-37.0); MCV 93.4 fL (80.0-100.0); MPV 11.1 fl. (7.2-11.1); RBC 3.07 mil/uL (4.50-6.00); RDW-CV 13.4 % (10.5-14.5); WBC 12.7 thou/uL (4.0-11.0)
[2020-01-02 20:00] VITALS: BP 99/53
[2020-01-02 20:06] LABS: CALCIUM 8.3 mg/dL (8.5-10.1); CREATININE 1.7 mg/dL (0.6-1.3); POTASSIUM 3.9 mmol/L (3.5-5.1)
[2020-01-02 20:11] LABS: ALBUMIN 3.2 g/dL (3.4-5.0); TOTAL BILIRUBIN 0.9 mg/dL (<0.1-1.0); TOTAL PROTEIN 5.9 g/dL (6.4-8.2)
[2020-01-03] VITALS: BP 111/55
[2020-01-03 04:00] VITALS: BP 98/47
[2020-01-03 04:51] LABS: ABSOLUTE LYMPHOCYTES 0.9 thou/uL (0.8-5.3); ABSOLUTE MONOCYTES 0.5 thou/uL (0.0-1.2); ABSOLUTE NEUTROPHILS 7.6 thou/uL (1.6-8.1); BASOPHILS 0.3 %; EOSINOPHILS 0.1 %; HEMATOCRIT 23.8 % (42.0-52.0); HEMOGLOBIN 8.3 gm/dL (14.0-18.0); LYMPHOCYTES 9.7 %; MCH 32.5 pg (26.0-34.0); MCHC 35.1 g/dL (28.0-37.0); MCV 92.7 fL (80.0-100.0); MONOCYTES 5.2 %; NUCLEATED RBCS 0 /100WBC; PLATELET COUNT* 108 thou/uL (150-400); POLYS 84.7 %; RBC 2.57 mil/uL (4.50-6.00); RDW-CV 13.9 % (10.5-14.5)
[2020-01-03 05:02] LABS: CALCIUM 8.6 mg/dL (8.5-10.1); CREATININE 1.6 mg/dL (0.6-1.3)
[2020-01-03 08:00] VITALS: BP 90/46
[2020-01-03 12:56] VITALS: BP 94/50
[2020-01-03 17:25] VITALS: BP 98/50
[2020-01-03 18:00] VITALS: BP 116/73
[2020-01-04 00:10] VITALS: BP 106/50
[2020-01-04 04:00] VITALS: BP 100/62
[2020-01-04 04:25] LABS: HEMATOCRIT 23.5 % (42.0-52.0); HEMOGLOBIN 8.1 gm/dL (14.0-18.0)
[2020-01-04 04:46] LABS: CALCIUM 7.8 mg/dL (8.5-10.1); CREATININE 1.5 mg/dL (0.6-1.3); POTASSIUM 3.9 mmol/L (3.5-5.1)
[2020-01-04 07:40] VITALS: BP 102/55
[2020-01-04 14:17] VITALS: BP 133/49
[2020-01-04 20:00] VITALS: BP 118/57
[2020-01-05] VITALS: BP 109/49
[2020-01-05 04:00] VITALS: BP 105/55
[2020-01-05 04:42] LABS: ABSOLUTE EOSINOPHILS 0.1 thou/uL (0.0-0.7); ABSOLUTE LYMPHOCYTES 1.1 thou/uL (0.8-5.3); ABSOLUTE MONOCYTES 0.4 thou/uL (0.0-1.2); ABSOLUTE NEUTROPHILS 3.7 thou/uL (1.6-8.1); BASOPHILS 0.3 %; EOSINOPHILS 1.3 %; HEMATOCRIT 24.7 % (42.0-52.0); HEMOGLOBIN 8.7 gm/dL (14.0-18.0); LYMPHOCYTES 20.6 %; MCH 32.8 pg (26.0-34.0); MCHC 35.3 g/dL (28.0-37.0); MCV 92.9 fL (80.0-100.0); MONOCYTES 7.1 %; MPV 11.1 fl. (7.2-11.1); NUCLEATED RBCS 0 /100WBC; PLATELET COUNT* 120 thou/uL (150-400); POLYS 70.7 %; RBC 2.66 mil/uL (4.50-6.00); RDW-CV 13.7 % (10.5-14.5); WBC 5.2 thou/uL (4.0-11.0)
[2020-01-05 04:56] LABS: ALBUMIN 2.3 g/dL (3.4-5.0); CALCIUM 7.8 mg/dL (8.5-10.1); CREATININE 1.4 mg/dL (0.6-1.3); POTASSIUM 4.3 mmol/L (3.5-5.1); TOTAL BILIRUBIN 0.8 mg/dL (<0.1-1.0); TOTAL PROTEIN 4.8 g/dL (6.4-8.2)
[2020-01-05 08:00] VITALS: BP 111/58
[2020-01-05 12:00] VITALS: BP 132/69
[2020-01-05 16:00] VITALS: BP 123/54
[2020-01-05 20:00] VITALS: BP 124/60
[2020-01-06] VITALS: BP 115/47
[2020-01-06 04:00] VITALS: BP 118/65
[2020-01-06 08:00] VITALS: BP 108/59
[2020-01-06 08:19] LABS: ABSOLUTE EOSINOPHILS 0.1 thou/uL (0.0-0.7); ABSOLUTE LYMPHOCYTES 1.3 thou/uL (0.8-5.3); ABSOLUTE MONOCYTES 0.5 thou/uL (0.0-1.2); ABSOLUTE NEUTROPHILS 3.6 thou/uL (1.6-8.1); BASOPHILS 0.5 %; EOSINOPHILS 1.4 %; HEMATOCRIT 24.7 % (42.0-52.0); HEMOGLOBIN 8.6 gm/dL (14.0-18.0); LYMPHOCYTES 24.2 %; MCHC 34.9 g/dL (28.0-37.0); MCV 91.9 fL (80.0-100.0); MONOCYTES 9.3 %; MPV 10.5 fl. (7.2-11.1); NUCLEATED RBCS 0 /100WBC; PLATELET COUNT* 143 thou/uL (150-400); POLYS 64.6 %; RBC 2.69 mil/uL (4.50-6.00); RDW-CV 13.6 % (10.5-14.5); WBC 5.6 thou/uL (4.0-11.0)
[2020-01-06 08:22] LABS: CALCIUM 8.1 mg/dL (8.5-10.1); CREATININE 1.4 mg/dL (0.6-1.3); POTASSIUM 3.6 mmol/L (3.5-5.1)
[2020-01-06 12:09] VITALS: BP 111/54
[2020-01-06 16:00] VITALS: BP 122/62
[2020-01-06 20:00] VITALS: BP 117/56
[2020-01-07] VITALS: BP 106/62
[2020-01-07 04:00] VITALS: BP 104/51
[2020-01-07 08:00] VITALS: BP 116/62
[2020-01-07] MEDS ORDERED: LANOXIN125 MCG PO (11:43)
[2020-01-07] MEDS ORDERED: LASIX 20 MG TAB20 MG PO (11:43)
[2020-01-07] MEDS ORDERED: XARELTO15 MG PO (11:43)
[2020-01-07] MEDS ORDERED: CETIRIZINE HCL5 MG PO (11:43)
[2020-01-07 12:00] VITALS: BP 109/64
[2020-01-07 15:24] VITALS: BP 114/61
[2020-01-07 16:30] VITALS: BP 114/61
== END 2020-01-07 17:00 | disposition home health service (06) | DRG 71 ==
LOC: M.REH 18:18 → M.2W 18:18
PROVIDERS: Internal Medicine Cardiovascular Disease; ADMIT Internal Medicine; ATTEND Internal Medicine
DX: G93.41 Metabolic encephalopathy (principal); N17.9 Acute kidney failure, unspecified; E44.0 Moderate protein-calorie malnutrition; I50.22 Chronic systolic (congestive) heart failure; I13.0 Hypertensive heart and chronic kidney disease with heart failure and stage 1 through stage 4 chronic kidney disease, or unspecified chronic kidney disease; I48.20 Chronic atrial fibrillation, unspecified; J90 Pleural effusion, not elsewhere classified; I95.2 Hypotension due to drugs; I25.10 Atherosclerotic heart disease of native coronary artery without angina pectoris; F03.90 Unspecified dementia, unspecified severity, without behavioral disturbance, psychotic disturbance, mood disturbance, and anxiety; I49.5 Sick sinus syndrome; I25.5 Ischemic cardiomyopathy; E78.5 Hyperlipidemia, unspecified; E11.43 Type 2 diabetes mellitus with diabetic autonomic (poly)neuropathy; K31.84 Gastroparesis; T50.905A Adverse effect of unspecified drugs, medicaments and biological substances, initial encounter; N18.9 Chronic kidney disease, unspecified; E11.22 Type 2 diabetes mellitus with diabetic chronic kidney disease; D64.9 Anemia, unspecified; T46.0X5A Adverse effect of cardiac-stimulant glycosides and drugs of similar action, initial encounter; J44.9 Chronic obstructive pulmonary disease, unspecified; Z79.84 Long term (current) use of oral hypoglycemic drugs; Z79.899 Other long term (current) drug therapy; Z95.0 Presence of cardiac pacemaker; Z79.01 Long term (current) use of anticoagulants; Y92.89 Other specified places as the place of occurrence of the external cause; Z68.20 Body mass index [BMI] 20.0-20.9, adult; Z95.1 Presence of aortocoronary bypass graft